=== PATIENT | male | born 1955 | race Caucasian/White ===

== ENCOUNTER 2021-07-21 17:14 | Inpatient (IN) | payer OTHER ==
[~2021-07-21] VITALS: Ht 188 cm; Wt 93.0 kg
--- NOTE | 2021-07-21 17:25 | NUR ---
BIBRA86 FOR SOB O2 SAT 60% RA GIVEN 15L O2, O2 SAT 90% PER EMS. THE PATIENT HAS TACHYPNEA. ATTACHED TO THE MONITOR. RT AT THE BEDSIDE. DR JENSEN AT THE BEDSIDE. WILL CONTINUE TO MONITOR THE PATIENT
[2021-07-21] MEDS ORDERED: IV NS 0.9% 1,000 ML BAG IV ONE (17:30)
--- NOTE | 2021-07-21 17:50 | NUR ---
[place] SEED CUTTER AT THE BEDSIDE
[2021-07-21 17:55] LABS: ABG BASE EXCESS -5.1 mmol/L; ABG OXYGEN SATURATION 93.9 % (92.0-98.5); ABG PCO2 29.1 mmHg (35.0-45.0); ABG PH 7.405 (7.350-7.450); AaDO2 204.6 mmHg; COHb 0.2 % (0.5-1.5); MetHb 0.3 % (0.0-1.5); O2Hb 93.4 % (94.0-97.0); SITE, ABG Right Radial; VENT MODE, BG 6L NC
--- NOTE | 2021-07-21 17:59 | NUR ---
PHLEBATOMIST AT THE BEDSIDE
[2021-07-21] MEDS ORDERED: NA P133E RC (18:07)
[2021-07-21] MEDS ORDERED: ACET325C7 PO (18:07)
[2021-07-21] MEDS ORDERED: ACET325T53 PO (18:07)
[2021-07-21] MEDS ORDERED: QUET25TA PO (18:07)
[2021-07-21] MEDS ORDERED: MULT-447 PO (18:07)
[2021-07-21] MEDS ORDERED: CRAN425C6 PO (18:07)
[2021-07-21] MEDS ORDERED: ASCO500C17 PO (18:07)
[2021-07-21] MEDS ORDERED: ZINC220C6 PO (18:07)
[2021-07-21] MEDS ORDERED: AMIN887L7 PO (18:07)
[2021-07-21] MEDS ORDERED: DOCU-141 PO (18:07)
--- NOTE | 2021-07-21 18:18 | NUR ---
CALLED NURSING SUP FOR [place] BED
--- NOTE | 2021-07-21 18:22 | NUR ---
HOLDING ORDERED NS AT THIS TIME PER DR JENSEN.
--- NOTE | 2021-07-21 18:32 | NUR ---
COVID SWAB DONE AND SENT TO THE LAB
[2021-07-21 18:38] LABS: CALCIUM, SERUM 9.7 mg/dL (8.5-10.1); CARBON DIOXIDE 24 mmol/L (21-32); CHLORIDE 121 mmol/L (98-107); CREATININE 2.9 mg/dL (0.6-1.3); GLUCOSE 219 mg/dL (74-106); POTASSIUM 4.2 mmol/L (3.5-5.1); UREA NITROGEN, BLOOD 75 mg/dL (7-18)
--- NOTE | 2021-07-21 18:38 | NUR ---
PER DR JENSEN OK TO GIVEN ORDERED NORMAL SALINE. AWARE OF BP 88/60 AND PULSE 124.
[2021-07-21 18:41] LABS: SODIUM SERUM 161 mmol/L (136-145)
--- NOTE | 2021-07-21 18:48 | NUR ---
FOLLOW UP CALL IS MADE TO PHARM TO DELIVER ZOSYN
[2021-07-21 18:50] LABS: ALANINE AMINOTRANSFERASE 66 U/L (12-78); ALBUMIN 2.9 g/dL (3.4-5.0); ALKALINE PHOSPHATASE 86 U/L (46-116); ASPARTATE AMINOTRANSFERASE 51 U/L (15-37); BILIRUBIN,TOTAL 4.3 mg/dL (0.2-1.0); TOTAL PROTEIN, SERUM 7.6 g/dL (6.4-8.2)
[2021-07-21] MEDS ORDERED: PIPERACILLIN /TAZOBACTAM 3.375 G in IV D5W 50 ML IV ONE (19:00)
[2021-07-21] MEDS ORDERED: VANCOMYCIN 1 GM in IV D5W 250 ML IV ONE (19:00)
--- NOTE | 2021-07-21 19:18 | NUR ---
CALLED [facility], PAGED SILVER MARTINES NP
--- NOTE | 2021-07-21 19:26 | NUR ---
C/O FEVER CHILLS & SORETHROAT, PT HAD COLONOSCOPY THIS AM
--- NOTE | 2021-07-21 19:38 | NUR ---
PATIENT OUT TO CT.
[2021-07-21] MEDS ORDERED: NOREPINEPHRINE 8 MG in IV NS 0.9% 250 ML IV ONE (20:00)
--- NOTE | 2021-07-21 20:13 | NUR ---
PICC LINE NURSE AT BEDSIDE
[2021-07-21 20:19] LABS: BASOPHILS % (AUTO) 0.2 % (0.0-2.0); HEMATOCRIT 50 % (39-51); HEMOGLOBIN 16.3 g/dL (13.5-17.5); LYMPHOCYTES % (AUTO) 13.3 % (20.0-44.0); MEAN CORPUSCULAR HGB CONC 33 g/dl (31.0-36.0); MEAN CORPUSCULAR VOLUME 92 fL (80-96); MONOCYTES # (AUTO) 0.9 K/uL (0.1-1.30); MONOCYTES % (AUTO) 5.7 % (2.0-12.0); NEUTROPHILS # (AUTO) 12.3 K/uL (1.8-8.9); NEUTROPHILS % (AUTO) 80.8 % (43.0-81.0); PLATELET COUNT (AUTO) 337 K/uL (150-450); RED BLOOD CELL COUNT(AUTO) 5.41 MIL/uL (4.5-6.0); WHITE BLOOD COUNT (AUTO) 15.3 K/uL (4.3-11.0)
--- NOTE | 2021-07-21 21:01 | NUR ---
covid antigen swab sent.
[2021-07-21 21:09] LABS: BILIRUBIN,URINE MODERATE (NEGATIVE); COLOR,URINE AMBER (YELLOW); LEUKOCYTE ESTERASE ,URINE NEGATIVE (NEGATIVE); NITRITE, URINE POSITIVE (NEGATIVE); PROTEIN,URINE NEGATIVE (NEGATIVE); UGLUCOSE NEGATIVE (NEGATIVE)
--- NOTE | 2021-07-21 21:19 | NUR ---
ROOM 260
[2021-07-21 21:25] LABS: BAND % (MANUAL) 18 % (0.0-5.0); LYMPHOCYTES % (MANUAL) 14 % (16-48); MONOCYTES % (MANUAL) 10 % (0-11.0); NEUTROPHILS % (MANUAL) 58 (42-76)
[2021-07-21] MEDS ORDERED: ACETAMINOPHEN 325 MG TABLET PO PRN (21:30)
[2021-07-21] MEDS ORDERED: ONDANSETRON HCL/PF 4 MG/2 ML VIAL IVP PRN (21:30)
[2021-07-21] MEDS ORDERED: IV 1/2NS 1000 ML 1,000 ML IV PRN (21:30)
[2021-07-21 21:31] LABS: BACTERIA,URINE Few /HPF (None Seen); RBC,URINE 0-2 /HPF (0-2); WBC,URINE 0-2 /HPF (0-3)
[2021-07-21 21:32] LABS: SQUAMOUS EPITHELIAL CELL,UR Moderate /HPF (None Seen)
--- NOTE | 2021-07-21 21:34 | NUR ---
CALLED CHRISTINE SHEPPARD NP
--- NOTE | 2021-07-21 22:01 | NUR ---
REPORT GIVEN TO ED AIRPLANE REFUELER
[2021-07-21] MEDS ORDERED: POTASSIUM CHLORIDE 10 MEQ TABLET.SA ONE (22:11)
[2021-07-21] MEDS ORDERED: POTASSIUM CHLORIDE 20 MEQ TAB.PRT.SR PO ONE (22:11)
--- NOTE | 2021-07-21 22:27 | NUR ---
REPORT GIVEN TO ED MACHINE FIXER. PT TRANSFERRED PER ACLS PROTOCOL
[2021-07-21] MEDS: ENOXAPARIN SODIUM 30 MG/0.3 ML DISP.SYRIN SQ SCH (22:54)
[2021-07-21 23:00] VITALS: BP 91/60
[2021-07-21] MEDS: NOREPINEPHRINE 8 MG in IV NS 0.9% 250 ML IV PRN (23:00)
[2021-07-21 23:30] VITALS: BP 94/59
[2021-07-22] VITALS (56 sets, daily range): BP systolic 42–153; BP diastolic 22–90
[2021-07-22] MEDS ORDERED: PIPERACILLIN /TAZOBACTAM 3.375 G VIAL IV ONE (01:20)
[2021-07-22] MEDS: PIPERACILLIN /TAZOBACTAM 3.375 G in IV D5W 50 ML IV SCH ×4 (01:27→20:02)
--- NOTE | 2021-07-22 03:20 | NUR ---
CLIP ON SUNGLASSES INSPECTOR PT WAS ADMITTED FROM ER WITH DIAGNOSIS BILATERAL PNA, SEPTIC SHOCK. PT IS MOSTLY LETHARGIC, RESPONSE TO PAINFUL STIMULI. DOES NOT OPEN EYES, NO SPEECH, MOVES ARMS, NO LEGS. BILATERAL RHONCHI. NO COUGH OR SPUTUM PRODUCTION. PT WAS HYPOTENSIVE, SO STARTED LEVOPHED DRIP, TITRATED TO KEEP SBP>90. MAIN IV 1/2 NS @ 100 ML/HR. PT HAS RIGHT UPPER ARM THREE PORTS PICC LINE. SCOPE-ST WITH PVC'S. AFEBRILE. F/C DRAINS YOLANDA URINE. NO BM. SOFT WRIST RESTRAINTS ON.
[2021-07-22 05:17] LABS: BASOPHILS % (AUTO) 0.3 % (0.0-2.0); EOSINOPHILS % (AUTO) 0.2 % (0.0-6.0); HEMATOCRIT 45 % (39-51); HEMOGLOBIN 14.7 g/dL (13.5-17.5); LYMPHOCYTES # (AUTO) 1.6 K/uL (0.8-4.8); LYMPHOCYTES % (AUTO) 11.5 % (20.0-44.0); MEAN CORPUSCULAR HGB CONC 33 g/dl (31.0-36.0); MEAN CORPUSCULAR VOLUME 92 fL (80-96); MONOCYTES # (AUTO) 0.6 K/uL (0.1-1.30); MONOCYTES % (AUTO) 4.3 % (2.0-12.0); NEUTROPHILS # (AUTO) 11.9 K/uL (1.8-8.9); NEUTROPHILS % (AUTO) 83.7 % (43.0-81.0); PLATELET COUNT (AUTO) 244 K/uL (150-450); RED BLOOD CELL COUNT(AUTO) 4.85 MIL/uL (4.5-6.0); WHITE BLOOD COUNT (AUTO) 14.3 K/uL (4.3-11.0)
[2021-07-22] MEDS ORDERED: NOREPINEPHRINE 8MG/250ML RTU 250 ML IV ONE (05:20)
[2021-07-22] MEDS: NOREPINEPHRINE 8 MG in IV NS 0.9% 250 ML IV PRN ×2 (05:23→14:14)
[2021-07-22 05:43] LABS: ALBUMIN 2.5 g/dL (3.4-5.0); BILIRUBIN,TOTAL 3.8 mg/dL (0.2-1.0); CALCIUM, SERUM 8.7 mg/dL (8.5-10.1); CREATININE 3.8 mg/dL (0.6-1.3); MAGNESIUM 2.7 mg/dL (1.8-2.4); PHOSPHORUS 4.1 mg/dL (2.5-4.9); POTASSIUM 4.1 mmol/L (3.5-5.1); TOTAL PROTEIN, SERUM 6.9 g/dL (6.4-8.2)
[2021-07-22] MEDS ORDERED: PIPERACILLIN /TAZOBACTAM 3.375 G in IV D5W 50 ML IV SCH (08:00)
--- NOTE | 2021-07-22 08:00 | NUR ---
RN NOTES RECEIVED PATIENT IN THE BED ON NON- REBREATHER MASK 15L, NPO, PATIENT CONFUSED, DURING ASSESSMENT RUBBING CHEST PATIENT MAKING NOISES BUT NO VERBAL RESPONDING. PATIENT TOTAL CARE, BILATERAL SOFT RESTRAIN ON CHECKED FOR CIRCULATION Q2 HR. PATIENT NEGATIVE FOR RAPID COVID, AND PENDING PCR. JAVAN PICC LINE INTACT, RUNNING NS @100 ML/HR , AND LEVOPHED 0.2 MCG/KG/HR INTACT. PATIENT HAS MULTIPLE SCABS, AND LEFT LOWER LEG ABRASION. MERCHANT DRAINING VIA GRAVITY, DARK COLOR OUTPUT. PATENT AM MEDICATION HELD.
[2021-07-22] MEDS ORDERED: ACETAMINOPHEN 325 MG TABLET PO SCH (09:00)
[2021-07-22] MEDS ORDERED: Medication Not On Formulary EA (Cranberry Extract (Cranberry) 850 MG) PO SCH (09:00)
[2021-07-22] MEDS: PROSOURCE / PROSTAT (PYXIS) 30 ML UDC PO SCH (09:00)
[2021-07-22] MEDS: ASCORBIC ACID 500 MG TABLET PO SCH (09:00)
[2021-07-22] MEDS: MULTIVIT W/MINERALS 1 TAB TABLET PO SCH ×2 (09:00→09:14)
[2021-07-22] MEDS: DOCUSATE SODIUM 100 MG CAPSULE PO SCH (09:00)
[2021-07-22] MEDS: IV D5/0.45 NACL 1,000 ML IV PRN ×2 (09:17→20:03)
--- NOTE | 2021-07-22 09:34 | NUR ---
rn notes CALLED [facility] , AND PER RN NYLA PATIENT HAS NO COVED VACCINATION, REFUSED VACCINATION, AND NO FAMILY.
[2021-07-22 09:49] LABS: ABG BASE EXCESS -4.5 mmol/L; ABG OXYGEN SATURATION 99.5 % (92.0-98.5); ABG PCO2 31.9 mmHg (35.0-45.0); ABG PH 7.396 (7.350-7.450); ABG PO2 247.6 mmHg (75.0-100.0); AaDO2 433.5 mmHg; MetHb 0.5 % (0.0-1.5); SITE, ABG Right Radial; VENT MODE, BG nrb
--- NOTE | 2021-07-22 09:51 | NUR ---
RN NOTES GET BLOOD GAS AT THIS TIME, AND ACCORDING ABG RESULT PATIENT ON NC 6L PER DR CASSIDY ORDER. WILL FOLLOW UP.
[2021-07-22] MEDS ORDERED: PIPERACILLIN /TAZOBACTAM 2.25 G in IV D5W 50 ML IV SCH (10:00)
[2021-07-22 10:44] LABS: THYROID STIMULATING HORMONE 2.533 uIU/mL (0.358-3.74)
[2021-07-22] MEDS: HYDROCORTISONE SOD SUCCINATE 100 MG/2 ML VIAL IV SCH ×3 (11:44→20:03)
--- NOTE | 2021-07-22 14:33 | NUR ---
rn notes patient still confused, no acute respiratory distress, HR-112 , assist turn and reposition q 2 hr, due medication administered, will follow up.
--- NOTE | 2021-07-22 18:44 | NUR ---
rn notes patient Pm care done, suction, infusing d51/2 ns at 100ml/hr,and Levophed 0.1 mcg/kg/hr right UA PICC line intact. patient on NC @6l , confused, no acute respiratory distress. urine output was 325 ml entire shift. assist turn and reposition q 2hr. rechecked soft restrain bilateral for circulation q 2 hr. endorsed oncoming nurse follow plan of care.
--- NOTE | 2021-07-22 19:05 | NUR ---
RECEIVED PT ON BED LETHARGIC, OPEN EYES TO PAIN NON VERVBAL ,ON O2 6L VIA NC SPO2 100% NO SIGN OF RESPIRATORY DISTRESS, BEDSIDE MONITOR READS SINUS TACHY 100'S, HAVE JAVAN PICC LINE WITH ONGOIGN LEVOPHED @ 0.1 MCG/KG/MIN AND D5 1/2 NS @ 100 ML/HR INFUSING WELL, HAVE RAC # 18 IV PATENT AND FLUSHED, MERCHANT CATHETER DRAINING YOLANDA YELLOW URINE VIA GRAVITY, HAVE BILATERAL WRIST RESTRAINTS TO PREVENT PULLING OF LINES, CIRCULATION WILL BE CHECKED REGULARLY, ON DROPLET ISOLATION FOR R/O COVID, BED ON LOWEST POSITION AND LOCKED SIDE RAILS UP X2 WILL CONT TO MONITOR
[2021-07-22] MEDS: MUPIROCIN OINT 2% 22 GM TUBE NS SCH (20:03)
[2021-07-22] MEDS: ENOXAPARIN SODIUM 30 MG/0.3 ML DISP.SYRIN SQ SCH (20:04)
[2021-07-23] VITALS (66 sets, daily range): BP systolic 83–150; BP diastolic 28–89
--- NOTE | 2021-07-23 01:15 | NUR ---
PT ON BED STILL VERY LETHARGIC OPEN EYES TO STIMULI ON O2 3L VIA NC SPO2 100% NO SIGN OR RESPIRATORY DISTRESS, NO PAIN NOTED WILL CONT TO MONITOR
[2021-07-23] MEDS: PIPERACILLIN /TAZOBACTAM 3.375 G in IV D5W 50 ML IV SCH ×4 (01:48→19:59)
[2021-07-23] MEDS: HYDROCORTISONE SOD SUCCINATE 100 MG/2 ML VIAL IV SCH ×3 (04:31→17:36)
[2021-07-23] MEDS: IV D5/0.45 NACL 1,000 ML IV PRN (06:02)
[2021-07-23] MEDS: VANCOMYCIN 1 GM in IV D5W 250ml IV SCH (06:03)
[2021-07-23 06:10] LABS: BASOPHILS % (AUTO) 0.2 % (0.0-2.0); HEMATOCRIT 40 % (39-51); LYMPHOCYTES # (AUTO) 1.3 K/uL (0.8-4.8); LYMPHOCYTES % (AUTO) 9.7 % (20.0-44.0); MEAN CORPUSCULAR HGB CONC 33 g/dl (31.0-36.0); MEAN CORPUSCULAR VOLUME 92 fL (80-96); MONOCYTES # (AUTO) 0.4 K/uL (0.1-1.30); MONOCYTES % (AUTO) 2.8 % (2.0-12.0); NEUTROPHILS % (AUTO) 87.3 % (43.0-81.0); PLATELET COUNT (AUTO) 186 K/uL (150-450); RED BLOOD CELL COUNT(AUTO) 4.32 MIL/uL (4.5-6.0); WHITE BLOOD COUNT (AUTO) 13.8 K/uL (4.3-11.0)
--- NOTE | 2021-07-23 06:43 | NUR ---
PT ON BED STILL VERY LETHARGIC, NO SIGN OF RESPIRATORY DISTRESS, BEDSIDE MONITOR READS SINUS RHTHM 90'S NO PAIN NOTED, STILL ON D5 1/2 NS @ 100ML/HR INFUSING WELL VIA JAVAN PICC, BILATEARL WRIST RESTRAINTS STILL ON CIRCULATION WAS CHECKED REGULARLY, BED ON LOWEST POSITION AND LOCKED SIDE RAILS UP X2 CWILL CONT TO MONITOR
[2021-07-23 07:36] LABS: CALCIUM, SERUM 8.6 mg/dL (8.5-10.1); CREATININE 3.8 mg/dL (0.6-1.3); POTASSIUM 3.7 mmol/L (3.5-5.1)
--- NOTE | 2021-07-23 08:00 | NUR ---
RN NOTES RECEIVED PATIENT LETHARGIC, NO ACUTE RESPIRATORY DISTRESS, ON [id number]%. PATIENT UNABLE TO VERBALIZE SELF BUT REACTING WHEN TOUCHING. INFUSING D51/2 NS @100 ML.HR, ON RIGHT PICC LINE ON RIGHT UPPER ARM, INTACT. PATIENT NPO ,HELD PO MEDICATIONS. VSS. RECHECKED SOFT BILATERAL SOFT RESTRAINS FOR CIRCULATION, MERCHANT DRAINING VIA GRAVITY DARK TEA COLOR OUTPUT. GET CALL FROM LAB PATIENT [phone]. HOSPITALIST NOTIFIED. CALL LIGHT WITHIN TO REACH. ASSIST TURN AND REPOSTION Q 2 HR. WILL FOLLOW UP.
[2021-07-23 08:54] LABS: ABG BASE EXCESS -1.2 mmol/L; ABG OXYGEN SATURATION 97.9 % (92.0-98.5); ABG PCO2 32.7 mmHg (35.0-45.0); ABG PH 7.447 (7.350-7.450); ABG PO2 107.6 mmHg (75.0-100.0); AaDO2 67.9 mmHg; COHb 0.3 % (0.5-1.5); MetHb 0.2 % (0.0-1.5); O2Hb 97.4 % (94.0-97.0); SITE, ABG Right Radial; VENT MODE, BG 3L NC
[2021-07-23] MEDS: PROSOURCE / PROSTAT (PYXIS) 30 ML UDC PO SCH (09:00)
[2021-07-23] MEDS: ASCORBIC ACID 500 MG TABLET PO SCH (09:00)
[2021-07-23] MEDS: MULTIVIT W/MINERALS 1 TAB TABLET PO SCH (09:00)
[2021-07-23] MEDS: DOCUSATE SODIUM 100 MG CAPSULE PO SCH (09:00)
[2021-07-23] MEDS: MUPIROCIN OINT 2% 22 GM TUBE NS SCH ×2 (09:01→20:09)
[2021-07-23] MEDS: IV D5W 1,000 ML IV PRN ×2 (10:49→21:01)
--- NOTE | 2021-07-23 11:00 | NUR ---
RN NOTES GET RESPOND FROM HOSPITALIST TO FOLLOW PAINT SPRAYER SANDBLASTER, GET NEW ORDER D5W @100 ML/HR. WILL FOLLOW UP.
--- NOTE | 2021-07-23 13:15 | NUR ---
RN NOTES PATIENT GET EVALUATED VIA SPEACH THERAPIST NAME ASHLEY BUT UNABLE, DUE TO PATIENT CONDITION PATIENT CONFUSED, UNABLE TO FOLLOW COMMAND.
--- NOTE | 2021-07-23 18:30 | NUR ---
RN NOTES PM CARE DONE, PATIENT STILL NPO. ON O22LNC, INFUSING D5W@100 ML/HR ON RIGHT PICC LINE INTACT. RECHECKED RESTRAIN BILATERAL INTACT, GOOD CIRCULATION. MERCHANT OUTPUT WAS 680 ML ENTIRE SHIFT. PATIENT NEED UA SPECIMEN TO BE COLLECTED, CLAMPED MERCHANT, ENDORSED ONCOMING NURSE FOLLOW PLAN OF CARE.
--- NOTE | 2021-07-23 19:15 | NUR ---
RECEIVED PT ON BED LETHARGIC, OPEN EYES TO PAIN NON VERVBAL ,ON O2 3L VIA NC SPO2 100% NO SIGN OF RESPIRATORY DISTRESS, BEDSIDE MONITOR READS SINUS RHYTHM 80'S HAVE JAVAN PICC LINE WITH ONGOIGN D5 1/2 NS @ 100 ML/HR INFUSING WELL, HAVE RAC # 18 IV PATENT AND FLUSHED, MERCHANT CATHETER DRAINING YOLANDA YELLOW URINE VIA GRAVITY, HAVE BILATERAL WRIST RESTRAINTS TO PREVENT PULLING OF LINES, CIRCULATION WILL BE CHECKED REGULARLY, ON DROPLET ISOLATION FOR R/O COVID, BED ON LOWEST POSITION AND LOCKED SIDE RAILS UP X2 WILL CONT TO MONITOR
[2021-07-23] MEDS: ENOXAPARIN SODIUM 30 MG/0.3 ML DISP.SYRIN SQ SCH (20:09)
[2021-07-23 21:12] LABS: BILIRUBIN,URINE NEGATIVE (NEGATIVE); COLOR,URINE YELLOW (YELLOW); LEUKOCYTE ESTERASE ,URINE NEGATIVE (NEGATIVE); NITRITE, URINE NEGATIVE (NEGATIVE); PROTEIN,URINE 30 mg/dl (NEGATIVE); UGLUCOSE 250 MG/DL mg/dL (NEGATIVE)
[2021-07-23 21:22] LABS: BACTERIA,URINE 1+ /HPF (None Seen); RBC,URINE 81-100 /HPF (0-2); SQUAMOUS EPITHELIAL CELL,UR 0-2 /HPF (None Seen); URINE AMORPHOUS URATE Moderate /HPF (None Seen); WBC,URINE 0-2 /HPF (0-3)
[2021-07-23 21:23] LABS: URIC ACID CRYSTALS,URINE Many /HPF (None Seen)
[2021-07-23 21:24] LABS: CREATININE, URINE 74.8 MG/DL (30.0-125.0); URINE TOTAL PROTEIN 117.1 mg/dL (0-11.9)
[2021-07-23 21:29] LABS: EOSINOPHIL,URINE None Seen
[2021-07-24] VITALS (37 sets, daily range): BP systolic 92–137; BP diastolic 37–92
--- NOTE | 2021-07-24 00:30 | NUR ---
PT RHYTHM CHNAGE FROM SINUS RHYTHM TO AFIB, INFORMED INGE MARTINES PROGRAM ADVOCATE STAT EKG ORDER WILL CONT TO MONITOR
--- NOTE | 2021-07-24 00:55 | NUR ---
EKG RESULTS RELAYED TO INGE MARTINES PRODUCT EXPERT WITH ORDER METOPROLOL 5MG IV X1 NOW NOTED AND CARRIED OUT WILL CONT TO MONITOR
[2021-07-24] MEDS: PIPERACILLIN /TAZOBACTAM 3.375 G in IV D5W 50 ML IV SCH ×4 (01:07→20:43)
[2021-07-24] MEDS ORDERED: METOPROLOL TARTRATE INJ 5 MG/5 ML AMPUL IV ONE (01:30)
[2021-07-24 04:40] LABS: BASOPHILS % (AUTO) 0.1 % (0.0-2.0); HEMATOCRIT 39 % (39-51); LYMPHOCYTES # (AUTO) 1.2 K/uL (0.8-4.8); LYMPHOCYTES % (AUTO) 8.8 % (20.0-44.0); MEAN CORPUSCULAR HGB CONC 33 g/dl (31.0-36.0); MEAN CORPUSCULAR VOLUME 92 fL (80-96); MONOCYTES # (AUTO) 0.4 K/uL (0.1-1.30); MONOCYTES % (AUTO) 2.8 % (2.0-12.0); NEUTROPHILS % (AUTO) 88.3 % (43.0-81.0); PLATELET COUNT (AUTO) 169 K/uL (150-450); WHITE BLOOD COUNT (AUTO) 13.5 K/uL (4.3-11.0)
[2021-07-24 05:09] LABS: MAGNESIUM 2.5 mg/dL (1.8-2.4); PHOSPHORUS 2.8 mg/dL (2.5-4.9)
--- NOTE | 2021-07-24 06:45 | NUR ---
REPORTED TO PRODUCTION ZONE LEADER SILVER MARTINES ABOUT THE Na-160 BUN 90 CREA 3.8 WITH NO NEW ORDER
[2021-07-24] MEDS: IV D5W 1,000 ML IV PRN ×3 (06:58→18:17)
--- NOTE | 2021-07-24 07:00 | NUR ---
RN NOTES RECEIVED PT ON BED, LETHARGIC ,DOES NOT FOLLOW COMMAND, RESTLESS, ON 2 L O2 N/C , NO RESPIRATORY DISTRESS NOTED, ON TELE A.FIB HR IN 90'S , PT KEPT NPO AT THIS TIME, D5W AT 100CC/HR RUNNING , IV SITES CLEAN, DRY AND INTACT, SR UP x3, CALL LIGHT WITHIN EASY REACH, BED LOCKED AND IN LOWEST POSITION, CONTINUE TO MONITOR .
--- NOTE | 2021-07-24 08:07 | NUR ---
WOUND CARE CONSULT: REVIEWED CHART, NURSING DOCUMENTATION AND PHOTOS WHICH INDICATE SACRAL/BUTTOCK REDNESS AND LEFT LOWER EXTREMITY WOUNDS, PRESENT ON ADMISSION. DR TY NOTIFIED OF DPM CONSULT. RECOMMENDATIONS MADE FOR SKIN PROTECTION. DISCUSSED WITH NURSING STAFF. MD IN AGREEMENT WITH PLAN OF CARE.
[2021-07-24] MEDS: HYDROCORTISONE SOD SUCCINATE 100 MG/2 ML VIAL IV SCH ×2 (08:19→09:30)
[2021-07-24] MEDS: MUPIROCIN OINT 2% 22 GM TUBE NS SCH ×2 (08:21→21:17)
[2021-07-24] MEDS: DOCUSATE SODIUM 100 MG CAPSULE PO SCH (08:21)
[2021-07-24] MEDS: ASCORBIC ACID 500 MG TABLET PO SCH (08:22)
[2021-07-24] MEDS: MULTIVIT W/MINERALS 1 TAB TABLET PO SCH (08:22)
[2021-07-24] MEDS: PROSOURCE / PROSTAT (PYXIS) 30 ML UDC PO SCH (08:22)
[2021-07-24] MEDS: Z GUARD REMEDY 2 OZ OINT TP SCH (08:23)
--- NOTE | 2021-07-24 10:00 | NUR ---
RN NOTES NGT INSERTED , 500 CC GREENISH GASTRIC FLUID DRAINED TO THE CANISTER , DR ESPINAL NOTIFIED, NGT REMAINS CONNECTED TO LIS SUCTIONING PER MD ORDER , CONTINUE TO MONITOR THE DRAINAGE .
--- NOTE | 2021-07-24 14:00 | NUR ---
RN NOTES NGT TO LIS , CONTINUE TO MONITOR .
[2021-07-24] MEDS: GLUCERNA 1.2 1,000 ML BOTTLE NG PRN (18:34)
[2021-07-24] MEDS: VANCOMYCIN 1 GM in IV D5W 250ml IV SCH ×2 (18:34→22:30)
--- NOTE | 2021-07-24 18:45 | NUR ---
RN NOTES NO FURTHER GASTRIC DRAINAGE NOTED ,TF STARTED AT 20CC /HR. WILL ENDORSE TO LIBRARY PARAPROFESSIONAL NURSE FOR CONTINUITY OF CARE.
--- NOTE | 2021-07-24 19:45 | NUR ---
ICU/RESOURCE TEACHER RECIEVED REPORT FROM DAY SHIFT NURSE. SEE FLOWSHEET FOR ASSESSMENT, THERE ARE SKIN ISSUES THAT ARE ADDRESSED ON THE FLOWSHEET, ALONG WITH INTERVENTIONS TO EACH. THE IV'S ARE ADDRESSED ON THE IV SPREAD SHEET. PT WAS TURNED AND REPOSITIONED FOR COMFORT AND CARE. NO ACUTE DISTRESS SEEN AND WILL CONTINUE TO MONITOR THIS PT.
--- NOTE | 2021-07-24 20:40 | NUR ---
ICU/PHOTOGRAMMETRIC SURVEYOR CALLED THE LAB ABOUT A VANCO TROUGH, THEY SAID THE CLS IS BACKED UP AT THIS TIME AND HOPEFULLY WITHIN THE NEXT 30 MINUTES IT WILL BE RESULTED.
[2021-07-24] MEDS: ENOXAPARIN SODIUM 30 MG/0.3 ML DISP.SYRIN SQ SCH (21:17)
--- NOTE | 2021-07-24 22:38 | NUR ---
ICU/GRAPHIC PRODUCTION ARTIST THE VANCO LEVEL WAS RESULTED OF 30 MINUTES AGO. THE LEVEL IS 26. THIS WAS HELD DUE TO PARAMETERS.
--- NOTE | 2021-07-24 23:30 | NUR ---
ICU/RN MANAGER PT WAS GIVEN ORAL CARE ALONG AT THIS TIME. PT TOLERATED THIS WELL, REMAINS ON 2 LITERS N/C WITH SATURATION AT 97-99%. AT THIS TIME PM CARE WAS PROVIDE, WHICH WAS TOLERATED WELL. PT WAS THEN TURNED AND REPOSITIONED FOR COMFORT AND CARE, WILL CONTINUE TO MONITOR THIS PT. NO ACUTE DISTRESS WAS SEEN AT THIS TIME.
[2021-07-25] VITALS (20 sets, daily range): BP systolic 92–126; BP diastolic 25–77
--- NOTE | 2021-07-25 01:30 | NUR ---
ICU/GARBAGE DEPOT WORKER PT WAS TURNED AND REPOSITIONED FOR COMFORT AND CARE. NO ACUTE DISTRESS SEEN AT THIS TIME. WILL CONTINUE TO MONITOR THIS PT.
[2021-07-25] MEDS: PIPERACILLIN /TAZOBACTAM 3.375 G in IV D5W 50 ML IV SCH ×4 (02:30→20:09)
--- NOTE | 2021-07-25 05:00 | NUR ---
ICU/SPECIAL EFFECTS MAKEUP ARTIST PT WAS PROVIDED ORAL CARE ALONG AT THIS TIME. PT TOLERATED THIS WELL, REMAINS ON 2 LITERS N/C WITH SATURATION AT 97-99%. AT THIS TIME AM CARE WAS PROVIDE, WHICH WAS TOLERATED WELL. PT WAS THEN TURNED AND REPOSITIONED FOR COMFORT AND CARE, WILL CONTINUE TO MONITOR THIS PT. NO ACUTE DISTRESS WAS SEEN AT THIS TIME.
[2021-07-25] MEDS: IV D5W 1,000 ML IV PRN ×2 (05:34→15:16)
--- NOTE | 2021-07-25 08:00 | NUR ---
RN NOTES RECEIVED PATIENT ON O22L, NO ACUTE RESPIRATORY DISTRESS, PATIENT AWAKE, AND CONFUSED SAME TIME ABLE TO OPEN EYES,BUT UNABLE TO RESPOND CONVERSATION. INFUSING D5W @75 ML/HRINTACT ON RIGHT UA PICC LINE INTACT. RUNNING GLUCERNA @20CC, NO RESIDUAL, MERCHANT DRAINING TEA COLOR OUTPUT WITH SEDIMENTS. KEEP HOB ELEVATED FOR ASPIRATION PRECAUTION. ASSIST TURN AND REPOSTION Q 2 HR. WILL FOLLOW UP.
[2021-07-25] MEDS: HYDROCORTISONE SOD SUCCINATE 100 MG/2 ML VIAL IV SCH (08:11)
[2021-07-25] MEDS: DOCUSATE SODIUM 100 MG CAPSULE PO SCH (08:11)
[2021-07-25] MEDS: ASCORBIC ACID 500 MG TABLET PO SCH (08:11)
[2021-07-25] MEDS: MULTIVIT W/MINERALS 1 TAB TABLET PO SCH (08:11)
[2021-07-25] MEDS: MUPIROCIN OINT 2% 22 GM TUBE NS SCH ×2 (08:12→20:03)
[2021-07-25] MEDS: Z GUARD REMEDY 2 OZ OINT TP SCH (08:12)
[2021-07-25] MEDS: PROSOURCE / PROSTAT (PYXIS) 30 ML UDC PO SCH (08:13)
--- NOTE | 2021-07-25 09:00 | NUR ---
RN NOTES SEEM PATIENT WOUND NURSE, AND PODIATRICS Dr ROWE GET NEW ORDER FOR NAILS TRAM.
[2021-07-25 09:08] LABS: BASOPHILS % (AUTO) 0.1 % (0.0-2.0); EOSINOPHILS % (AUTO) 0.7 % (0.0-6.0); HEMATOCRIT 42 % (39-51); HEMOGLOBIN 13.8 g/dL (13.5-17.5); LYMPHOCYTES # (AUTO) 1.5 K/uL (0.8-4.8); LYMPHOCYTES % (AUTO) 13.1 % (20.0-44.0); MEAN CORPUSCULAR HGB CONC 33 g/dl (31.0-36.0); MEAN CORPUSCULAR VOLUME 91 fL (80-96); MONOCYTES # (AUTO) 0.6 K/uL (0.1-1.30); MONOCYTES % (AUTO) 5.6 % (2.0-12.0); NEUTROPHILS # (AUTO) 9.1 K/uL (1.8-8.9); NEUTROPHILS % (AUTO) 80.5 % (43.0-81.0); PLATELET COUNT (AUTO) 145 K/uL (150-450); RED BLOOD CELL COUNT(AUTO) 4.61 MIL/uL (4.5-6.0); WHITE BLOOD COUNT (AUTO) 11.4 K/uL (4.3-11.0)
[2021-07-25 09:21] LABS: CALCIUM, SERUM 8.3 mg/dL (8.5-10.1); CREATININE 1.7 mg/dL (0.6-1.3); MAGNESIUM 2.5 mg/dL (1.8-2.4); PHOSPHORUS 2.4 mg/dL (2.5-4.9)
--- NOTE | 2021-07-25 09:30 | NUR ---
RN NOTES GET NEW ORDER TRANSFER PATIENT TO [place]/TELE. WILL FOLLOW UP. DUE MEDICATION ADMINISTERED VIA NGR, SEEN HOSPITALIST dR ESPINAL, AND TANDEM MILL ROLLER Dr GARDNER FOR CONTINUATION OF PLAN OF CARE.
[2021-07-25 09:55] LABS: POTASSIUM 2.7 mmol/L (3.5-5.1)
[2021-07-25] MEDS: POTASSIUM CHLORIDE 20 MEQ TAB.PRT.SR PO SCH ×5 (11:23→14:42)
--- NOTE | 2021-07-25 13:21 | NUR ---
RN NOTES TRANSFERRED PATIENT STABLE CONDITION [place] TELE ROOM 118 BED 1, VSS, ON O22LNC, NO ACUTE RESPIRATORY DISTRESS. BEDSIDE REPORT GIVEN RN FOLLOW PLAN OF CARE.
[2021-07-25] MEDS ORDERED: NEUTRA PHOS 1 POWD.PACKET PO ONE (15:30)
--- NOTE | 2021-07-25 18:37 | NUR ---
RN CLOSING NOTES; PT CAME IN FROM ICU FOR SEPTIC SHOCK AND DEHYDRATION. PT ON NC 2L AT AT 96-98%. PT IS LETHARGIC, CONFUSED, BUT OPENS EYES. R NARE NG TUBE RUNNING GLUCERNA @20ML HOUR. GOAL AT 50ML/HR. PT HAS JAVAN PICC, RA #18 AND RH #20. FLUSHED AND PATENT. NO SIGNIFICANT CHANGE IN PT CONDITION. PT KEPT CLEAN, DRY, AND COMFORTABLE. SAFETY MEASURES RENDERED, BED IN LOWEST POS. LOCKED WITH CALL LIGHT WITHIN REACH. ENDORSED TO BUSINESS AGENT RN IN STABLE CONDITION.
[2021-07-25] MEDS: Potassium Chloride 20 MEQ in IV D5W 1,000 ML IV PRN (19:03)
--- NOTE | 2021-07-25 19:59 | NUR ---
TELE-TD/INVESTIGATION SPECIALIST PTS NGT REENFORCED 26cm @ THE RIGHT NARE PLACEMENT CONFIRMED BY AUSCULTATION.
[2021-07-25] MEDS: ENOXAPARIN SODIUM 30 MG/0.3 ML DISP.SYRIN SQ SCH (20:03)
[2021-07-26] VITALS: BP 105/71
[2021-07-26] MEDS: PIPERACILLIN /TAZOBACTAM 3.375 G in IV D5W 50 ML IV SCH ×4 (02:28→20:11)
[2021-07-26 04:00] VITALS: BP 116/79
[2021-07-26] MEDS: GLUCERNA 1.2 1,000 ML BOTTLE NG PRN (05:25)
--- NOTE | 2021-07-26 07:30 | NUR ---
RN NOTES PT FOUND SLEEPING IN SEMI FOWLERS POSITION DISPLAYING NO S/S OF DISTRESS, FLACC = 0 AND BREATHING IS EVEN AND UNLABORED. REPORT FROM SUPERVISOR AIR CONDITIONING INSTALLER RN STATES THAT PT ATTEMPTED TO BITE RN WHILE RN WAS REPOSITIONING NGT JUSTIFYING RESTRAINTS. SUCH, BUE SOFTS RESTRAINTS APPLIED, PULSES PALPATED ON L&R RADIAL ARTERY, CAP REFILL < 3 SECONDS. RESIDUAL IS MINIMAL, < 5 ML. RN WILL MONITOR AND TREAT THROUGHOUT SHIFT. SAFETY MEASURES IN PLACE, BED LOCKED AND IN LOWEST POSITION, SIDE RAILS UPX2, CALL LIGHT WITHIN REACH, BED ALARM ARMED.
[2021-07-26 07:31] LABS: BASOPHILS % (AUTO) 0.1 % (0.0-2.0); EOSINOPHILS % (AUTO) 0.7 % (0.0-6.0); HEMATOCRIT 42 % (39-51); HEMOGLOBIN 13.9 g/dL (13.5-17.5); LYMPHOCYTES # (AUTO) 1.2 K/uL (0.8-4.8); LYMPHOCYTES % (AUTO) 10.5 % (20.0-44.0); MEAN CORPUSCULAR HGB CONC 33 g/dl (31.0-36.0); MEAN CORPUSCULAR VOLUME 91 fL (80-96); MONOCYTES # (AUTO) 0.5 K/uL (0.1-1.30); MONOCYTES % (AUTO) 4.6 % (2.0-12.0); NEUTROPHILS # (AUTO) 9.9 K/uL (1.8-8.9); NEUTROPHILS % (AUTO) 84.1 % (43.0-81.0); PLATELET COUNT (AUTO) 147 K/uL (150-450); RED BLOOD CELL COUNT(AUTO) 4.59 MIL/uL (4.5-6.0); WHITE BLOOD COUNT (AUTO) 11.8 K/uL (4.3-11.0)
[2021-07-26 08:00] VITALS: BP 104/69
[2021-07-26 08:01] LABS: CALCIUM, SERUM 8.5 mg/dL (8.5-10.1); CREATININE 1.4 mg/dL (0.6-1.3); MAGNESIUM 2.5 mg/dL (1.8-2.4); PHOSPHORUS 2.4 mg/dL (2.5-4.9); POTASSIUM 3.2 mmol/L (3.5-5.1)
[2021-07-26] MEDS ORDERED: POTASSIUM CHLORIDE 20 MEQ TAB.PRT.SR PO SCH (09:00)
[2021-07-26] MEDS: MUPIROCIN OINT 2% 22 GM TUBE NS SCH ×2 (09:42→20:12)
[2021-07-26] MEDS: POTASSIUM PHOSPHATE MM 7.5 MMOL in IV NS 0.9% 100 ML IV SCH ×2 (09:42→12:48)
[2021-07-26] MEDS: ASCORBIC ACID 500 MG TABLET PO SCH (09:43)
[2021-07-26] MEDS: MULTIVIT W/MINERALS 1 TAB TABLET PO SCH (09:43)
[2021-07-26] MEDS: DOCUSATE SODIUM 100 MG CAPSULE PO SCH (09:43)
[2021-07-26] MEDS: Z GUARD REMEDY 2 OZ OINT TP SCH (09:46)
[2021-07-26] MEDS: PROSOURCE / PROSTAT (PYXIS) 30 ML UDC PO SCH (09:46)
[2021-07-26 12:00] VITALS: BP 109/66
[2021-07-26] MEDS: Potassium Chloride 20 MEQ in IV D5W 1,000 ML IV PRN (12:48)
[2021-07-26 16:00] VITALS: BP 99/58
--- NOTE | 2021-07-26 19:00 | NUR ---
RN NOTES PT FOUND SLEEPING IN SEMI FOWLERS POSITION DISPLAYING NO S/S OF DISTRESS, FLACC = 0 AND BREATHING IS EVEN AND UNLABORED. PT SLEPT THROUGHOUT SHIFT. PULSES PALPATED ON L&R RADIAL ARTERY, CAP REFILL < 3 SECONDS. RESIDUAL IS MINIMAL, < 5 ML. SAFETY MEASURES IN PLACE, BED LOCKED AND IN LOWEST POSITION, SIDE RAILS UPX2, CALL LIGHT WITHIN REACH, BED ALARM ARMED. SBAR AND REPORT GIVEN TO NOCTURNIST PHYSICIAN RN, ALL QUESTIONS ANSWERED. PT ENDORSED IN STABLE CONDITION, ALL QUESTIONS ANSWERED.
--- NOTE | 2021-07-26 19:30 | NUR ---
RN NOTE PT RECEIVED IN BED. CURRENTLY ON 2L OF O2 VIA NC SHOWING NO S/S OF RESP DISTRESS. PT IS NON-VERBAL, RESTRAINTS NOTED. MERCHANT CATH NOTED. GLUCERNA RUNNING AT 50 ML/HR. NG TUBE FLUSHED, PATENT, AND INTACT. PT TOLERATING WELL. IV ACCESS NOTED ON RIGHT UPPER ARM PICC LINE, RIGHT HAND #18, AND LEFT HAND #18 NOTED. LINES FLUSHED, PATENT, AND INTACT WITH NO INFILTRATION. ALL SAFETY MEASURES IMPLEMENTED. BED ALARM ON. BED LOCKED AND IN LOWEST POSITION. WILL CONTINUE TO MONITOR AND ASSESS FOR ANY CHANGES.
[2021-07-26 20:00] VITALS: BP 94/62
[2021-07-26] MEDS: ENOXAPARIN SODIUM 30 MG/0.3 ML DISP.SYRIN SQ SCH (20:13)
--- NOTE | 2021-07-26 20:48 | NUR ---
RN NOTE PT PULLED OUT NG TUBE. WILL RE-INSERT NG TUBE. WIRE MESH FILTER FABRICATOR CARMELO MADE AWARE.
--- NOTE | 2021-07-26 22:23 | NUR ---
RN NOTE PT UNABLE TO SWALLOW WHILE RE-INSERTING NG TUBE. WILL TRY TO ATTEMPT RE-INSERTION ONCE PT HAS SOME REST. ACCOUNTS ADMINISTRATOR CARMELO MADE AWARE. DR. DONNY BERKOWITZ MADE AWARE WELL.
--- NOTE | 2021-07-26 22:42 | NUR ---
RN NOTE NG TUBE RE-INSERTED. DR. BERKOWITZ MADE AWARE. STAT CHEST X-RAY ORDERED PER MD.
[2021-07-27] VITALS: BP 114/65
[2021-07-27] MEDS: PIPERACILLIN /TAZOBACTAM 3.375 G in IV D5W 50 ML IV SCH ×4 (02:10→20:06)
[2021-07-27] MEDS: Potassium Chloride 20 MEQ in IV D5W 1,000 ML IV PRN (03:47)
[2021-07-27 04:00] VITALS: BP 121/63
--- NOTE | 2021-07-27 07:01 | NUR ---
RN NOTE NO CHANGES IN PT CONDITION DURING SHIFT. PT CURRENTLY ON 2L OF O2 VIA NC SHOWING NO S/S OF RESP DISTRESS. PT IS NON-VERBAL, RESTRAINTS RENEWED. GLUCERNA RUNNING AT 50 ML/HR. NG TUBE FLUSHED, PATENT, AND INTACT. PT TOLERATING WELL. IV ACCESS NOTED ON RIGHT UPPER ARM PICC LINE, RIGHT HAND #18, AND LEFT HAND #18 NOTED. LINES FLUSHED, PATENT, AND INTACT WITH NO INFILTRATION. ALL DUE MEDS GIVEN ORDERED. PT KEPT CLEAN AND COMFORTABLE. ALL SAFETY MEASURES IMPLEMENTED. BED ALARM ON. BED LOCKED AND IN LOWEST POSITION. WILL ENDORSE TO MORNING SHIFT RN FOR DENNIS.
[2021-07-27 07:26] LABS: EOSINOPHILS % (AUTO) 0.7 % (0.0-6.0); HEMATOCRIT 42 % (39-51); HEMOGLOBIN 13.9 g/dL (13.5-17.5); LYMPHOCYTES # (AUTO) 1.5 K/uL (0.8-4.8); LYMPHOCYTES % (AUTO) 11.3 % (20.0-44.0); MEAN CORPUSCULAR HGB CONC 33 g/dl (31.0-36.0); MEAN CORPUSCULAR VOLUME 91 fL (80-96); MONOCYTES # (AUTO) 0.5 K/uL (0.1-1.30); MONOCYTES % (AUTO) 4.2 % (2.0-12.0); NEUTROPHILS # (AUTO) 10.7 K/uL (1.8-8.9); NEUTROPHILS % (AUTO) 83.8 % (43.0-81.0); PLATELET COUNT (AUTO) 140 K/uL (150-450); RED BLOOD CELL COUNT(AUTO) 4.68 MIL/uL (4.5-6.0); WHITE BLOOD COUNT (AUTO) 12.8 K/uL (4.3-11.0)
--- NOTE | 2021-07-27 07:30 | NUR ---
RN OPENING NOTES PT CURRENTLY ON 5L OF O2 VIA NC SHOWING NO S/S OF RESP DISTRESS. RESTRAINTS RENEWED. GLUCERNA RUNNING AT 50 ML/HR. NG TUBE FLUSHED, PATENT, AND INTACT. PT HAS UNCONTROLLED A FIB. IV ACCESS NOTED ON RIGHT UPPER ARM PICC LINE, RIGHT HAND #18, AND LEFT HAND #18 NOTED. LINES FLUSHED, PATENT, PT KEPT CLEAN AND COMFORTABLE. ALL SAFETY MEASURES IMPLEMENTED. BED ALARM ON. BED LOCKED AND IN LOWEST POSITION. Addendum: 07/27/21 at 1521 by ROBYN FIELD RN ADDENDUM NGT CHECKED FOR PLACEMENT WITH COLLEAGUE ROBYN Pena WITH ONGOING D5W + 20MEQ KCL INFUSING WELL TO RT UPPER PICC LINE. SITE CLEAR. WILL PERFORM PRESCRIBED WOUND TREATMENT LATER. SEE NURSING FLOWSHEET FOR SKIN ISSUES
[2021-07-27 07:50] LABS: CALCIUM, SERUM 8.4 mg/dL (8.5-10.1); CREATININE 1.3 mg/dL (0.6-1.3); MAGNESIUM 2.2 mg/dL (1.8-2.4); PHOSPHORUS 2.2 mg/dL (2.5-4.9); POTASSIUM 3.4 mmol/L (3.5-5.1)
[2021-07-27 08:00] VITALS: BP 111/77
--- NOTE | 2021-07-27 08:00 | NUR ---
[place] RN NOTE REPORTED TO DR JOYCE NOTIFIED THAT DR GARDNER WANTS TO KEEP PATIENT IN [place] FOR NOW , STATED ITS FINE
--- NOTE | 2021-07-27 08:00 | NUR ---
RN NOTES NGT CHECKED FOR PLACEMENT ONGOING GT FEEDING GLUCERNA 50 ML/HR. O RESIDUAL DR. JOYCE NOTIFIED OF AFIB UNCONTROLLED WITH HR OF 120s- 130s LAST NIGHT. NO NEW ORDERS
--- NOTE | 2021-07-27 08:30 | NUR ---
[place] RN NOTE REPORTED TO DR JOYCE FRUIT RAISER THAT HR AFIB HR 120-133 NO NEW ORDER GIVEN
[2021-07-27] MEDS: MULTIVIT W/MINERALS 1 TAB TABLET PO SCH (09:12)
[2021-07-27] MEDS: DOCUSATE SODIUM 100 MG CAPSULE PO SCH (09:12)
[2021-07-27] MEDS: ASCORBIC ACID 500 MG TABLET PO SCH (09:13)
[2021-07-27] MEDS: GLUCERNA 1.2 1,000 ML BOTTLE NG PRN (09:26)
[2021-07-27] MEDS: PROSOURCE / PROSTAT (PYXIS) 30 ML UDC PO SCH (09:28)
[2021-07-27] MEDS: Z GUARD REMEDY 2 OZ OINT TP SCH (09:29)
[2021-07-27] MEDS: MUPIROCIN OINT 2% 22 GM TUBE NS SCH ×2 (09:30→20:11)
--- NOTE | 2021-07-27 09:30 | NUR ---
RN NOTES DUE MEDS GIVEN
[2021-07-27] MEDS: POTASSIUM CL. PREMIX PERIPHER. 50 ML IV SCH ×4 (10:17→13:22)
--- NOTE | 2021-07-27 11:11 | NUR ---
mejia rn note called to dr louis kumari , left a massage for patient for peg placement, spoke with kimberly
--- NOTE | 2021-07-27 11:45 | NUR ---
[place] RN NOTES PT FOR PEG PLACEMENT TOMORROW C/O DR. NOLAN NPO POST MIDNIGHT NO FAMILY. PER [facility] [place] [place]. CONSENT SIGNED BY DR. ESPINAL
[2021-07-27 12:00] VITALS: BP 122/80
--- NOTE | 2021-07-27 12:14 | NUR ---
mejia rn note spoke with dr myers ,ordered npo after mid night get consent for peg placement,order carried out
[2021-07-27] MEDS ORDERED: Sodium Phosphate 30 MMOL in IV NS 0.9% 250 ML IV SCH (15:00)
[2021-07-27 16:00] VITALS: BP 108/63
[2021-07-27] MEDS: MORPHINE SULFATE INJ 2 MG/ML DISP.SYRIN IV PRN (16:30)
--- NOTE | 2021-07-27 17:25 | NUR ---
RN NOTES PT FOUND HAVING LABORED BREATHING TEMP 101 BP 122/71 O2 SAT 88-94% AT 4L O2 NASAL CANULA. DR. ESPINAL INFORMED. - STAT ABG.
[2021-07-27 17:33] LABS: ABG BASE EXCESS 3.8 mmol/L; ABG OXYGEN SATURATION 93.1 % (92.0-98.5); ABG PCO2 39.6 mmHg (35.0-45.0); ABG PH 7.463 (7.350-7.450); ABG PO2 64.7 mmHg (75.0-100.0); COHb 0.5 % (0.5-1.5); MetHb 0.2 % (0.0-1.5); O2Hb 92.4 % (94.0-97.0); SITE, ABG Right Radial; VENT MODE, BG 5L NC
--- NOTE | 2021-07-27 17:40 | NUR ---
RT NOTE ABG RESULTS RELAYED TO CHARGE NURSE GHANSHYAM AND CAMILO CARLSON.
--- NOTE | 2021-07-27 17:40 | NUR ---
RN NOTES ABG RESULT RELAYED TO DR. ESPINAL. LOOKS FINE.
--- NOTE | 2021-07-27 17:42 | NUR ---
RN NOTES STAT CXR AND BLOOD CULTURE ORDERED PER DR. ESPINAL
--- NOTE | 2021-07-27 18:05 | NUR ---
[place] RN NOTE PER DR CECE WILLOUGHBY TO ORDER TYLENOL ORDER CARRIED OUT, BLOOD CX TAKEN
[2021-07-27] MEDS: ACETAMINOPHEN 650 MG/20.3 ML UDC NG PRN (18:21)
--- NOTE | 2021-07-27 18:30 | NUR ---
RN CLOSING NOTES PT CURRENTLY ON 5L OF O2 VIA NC. 95% o2 SAT. PT HAD LABORED BREATHING DURING THE END OF THE SHIFT. PT HAS UNCOTROLLED A FIB WITH SR 109. PT IS NON-VERBAL, RESTRAINTS RENEWED. PT GTUBE FEEDING WAS STOPPED FOR A WHILE. NG TUBE FLUSHED, PATENT, AND INTACT. PT TOLERATING WELL. IV ACCESS NOTED ON RIGHT UPPER ARM PICC LINE, RIGHT HAND #18, AND LEFT HAND #18 NOTED. LINES FLUSHED, PATENT, AND INTACT WITH NO INFILTRATION. PT KEPT CLEAN AND COMFORTABLE. ALL SAFETY MEASURES IMPLEMENTED. BED ALARM ON. BED LOCKED AND IN LOWEST POSITION. WILL ENDORSE TO STEAM PRESSURE CHAMBER OPERATOR
--- NOTE | 2021-07-27 18:47 | NUR ---
RN NOTES TEMPERATURE RECHECKED = 100 DEG
--- NOTE | 2021-07-27 19:20 | NUR ---
RN NOTE RECEIVED PATIENT IN BED RESTING NON VERBAL LABORED BREATHING ON 5L OXYGEN VIA NASAL CANNULA O2:92% IV SITE IS ON RIGHT UPPER ARM PICC LINE AND RIGHT AC INTACT PATENT ON POTASSIUM CHLORIDE IV HYDRATION RUNNING 75CC/HR ON NGT CHECKED PLACEMENT, IN PLACE ON GLUCERNA 1.2 50CC/HR MERCHANT CATHETER IN PLACE URINE DRAINING DARK YELLOW BY GRAVITY HEAD OF THE BED ELEVATED SAFETY MEASURE IMPLEMENT CONTINUE TO MONITOR.
[2021-07-27 20:00] VITALS: BP 102/58
[2021-07-27] MEDS: ENOXAPARIN SODIUM 30 MG/0.3 ML DISP.SYRIN SQ SCH (20:25)
--- NOTE | 2021-07-27 21:00 | NUR ---
RN NOTE HELD LOVEJESSIEX AT 2100 FOR PROCEDURE TOMORROW CONTINUE TO MONITOR.
[2021-07-28] VITALS (26 sets, daily range): BP systolic 59–122; BP diastolic 41–79
[2021-07-28] MEDS: PIPERACILLIN /TAZOBACTAM 3.375 G in IV D5W 50 ML IV SCH ×4 (01:12→20:58)
[2021-07-28] MEDS: Potassium Chloride 20 MEQ in IV D5W 1,000 ML IV PRN ×2 (01:13→17:29)
[2021-07-28] MEDS: MORPHINE SULFATE INJ 2 MG/ML DISP.SYRIN IV PRN (02:32)
--- NOTE | 2021-07-28 03:30 | NUR ---
RN NOTE PATIENT HR IS GOING TO ABOUT 140-147 AT 2:[address] PATTERN PERFORATING MACHINE OPERATOR SYSTEMS COORDINATOR DONNY WITH NEW ORDER ONE BOLUS 250 NS AND ATIVAN 1MG ONE TIME ONLY NOTED AND CARRIED OUT CONTINUE TO MONITOR.
--- NOTE | 2021-07-28 03:45 | NUR ---
0345 JUAN BERKOWITZ WAS NOTIFIED OF PATIENT'S HR IN THE 140S SUSTAINED WITH ORDER TO GIVE ONE DOSE OF ATIVAN 1 MG IVP AND TO GIVE 250ML OF NS BOLUS. ORDERS NOTED AND CARRIED OUT.
[2021-07-28] MEDS ORDERED: IV NS 0.9% 250 ML IV ONE (04:00)
[2021-07-28] MEDS ORDERED: LORAZEPAM INJ 2 MG/ML VIAL IV PRN ×2 (04:00→06:00)
[2021-07-28 05:16] LABS: BASOPHILS # (AUTO) 0.1 K/uL (0.0-0.2); BASOPHILS % (AUTO) 0.5 % (0.0-2.0); HEMATOCRIT 39 % (39-51); HEMOGLOBIN 12.6 g/dL (13.5-17.5); LYMPHOCYTES # (AUTO) 1.2 K/uL (0.8-4.8); LYMPHOCYTES % (AUTO) 8.5 % (20.0-44.0); MEAN CORPUSCULAR HGB CONC 33 g/dl (31.0-36.0); MEAN CORPUSCULAR VOLUME 91 fL (80-96); MONOCYTES # (AUTO) 0.4 K/uL (0.1-1.30); NEUTROPHILS # (AUTO) 12.1 K/uL (1.8-8.9); PLATELET COUNT (AUTO) 141 K/uL (150-450); RED BLOOD CELL COUNT(AUTO) 4.25 MIL/uL (4.5-6.0); WHITE BLOOD COUNT (AUTO) 13.9 K/uL (4.3-11.0)
[2021-07-28 05:28] LABS: CALCIUM, SERUM 7.8 mg/dL (8.5-10.1); CREATININE 1.5 mg/dL (0.6-1.3); MAGNESIUM 2.1 mg/dL (1.8-2.4); PHOSPHORUS 3.3 mg/dL (2.5-4.9); POTASSIUM 3.9 mmol/L (3.5-5.1)
--- NOTE | 2021-07-28 05:30 | NUR ---
0530 JUAN BERKOWITZ AT BEDSIDE AND AWARE OF PATIENT'S HR STILL IN THE 140S WITH ORDER TO GIVE ANOTHER DOSE OF 1MG ATIVAN ONCE. ORDER NOTED.
[2021-07-28] MEDS ORDERED: MORPHINE SULFATE INJ 2 MG/ML DISP.SYRIN IV ONE (06:00)
--- NOTE | 2021-07-28 06:00 | NUR ---
RN NOTE PATIENT CONVERT SINUS TACHYCARDIA 144 TO SINUS RHYTHM 86 CONTINUE TO MONITOR.
--- NOTE | 2021-07-28 06:05 | NUR ---
RN NOTE ANESTHESIOLOGIST MET GIRMM IN TH ROOM,CONTINUE TO MONITOR
--- NOTE | 2021-07-28 06:07 | NUR ---
0607 PATIENT CONVERTED TO NSR HR IN THE 80S.
--- NOTE | 2021-07-28 06:22 | NUR ---
RN NOTE PATIENT LEFT ROOM TO OR FOR G-TUBE PLACEMENT.
--- NOTE | 2021-07-28 06:58 | NUR ---
RN NOTE MORPHINE NOT GIVEN PATIENT IS NOT AVAILABLE
[2021-07-28] MEDS ORDERED: ALBUTEROL FS 2.5 MG/3 ML VIAL.NEB ONE (07:19)
--- NOTE | 2021-07-28 07:51 | NUR ---
NURSING TECHNICIAN NOTES RECEIVED PT FROM O.R. STAFF VIA BED, PT IS ASLEEP, AROUSABLE TO PAINFUL STIMULI, NON VERBAL, OPENS EYES, MOUTH BREATHER, S/P PEG TUBE, POST ORDERS RECEIVED FROM MD, VITALS TAKEN AND RECORDED, ON 5L OF O2 VIA MASK WITH O2 SAT OF 95%, WILL CONTINUE TO MONITOR.
[2021-07-28] MEDS: ASCORBIC ACID 500 MG TABLET PO SCH (08:33)
[2021-07-28] MEDS: DOCUSATE SODIUM 100 MG CAPSULE PO SCH (08:33)
[2021-07-28] MEDS: MULTIVIT W/MINERALS 1 TAB TABLET PO SCH (08:33)
[2021-07-28] MEDS: MUPIROCIN OINT 2% 22 GM TUBE NS SCH ×2 (08:47→21:00)
[2021-07-28] MEDS: Z GUARD REMEDY 2 OZ OINT TP SCH (08:47)
[2021-07-28] MEDS: PROSOURCE / PROSTAT (PYXIS) 30 ML UDC PO SCH (09:03)
--- NOTE | 2021-07-28 09:07 | NUR ---
ELECTRIC FORK OPERATOR NOTES PT SEEN AND EXAMINED BY DR. ESPINAL, INFORMED OF PT'S CURRENT VITALS, NO NEW ORDER GIVEN, WILL CONTINUE TO MONITOR.
--- NOTE | 2021-07-28 13:44 | NUR ---
patient tachypneic desaturates on o2 mask ,placed on norebreather ,awaits abg per md order.
[2021-07-28 14:04] LABS: ABG BASE EXCESS 5.4 mmol/L; ABG PCO2 47.7 mmHg (35.0-45.0); ABG PH 7.427 (7.350-7.450); AaDO2 598.3 mmHg; COHb 0.2 % (0.5-1.5); MetHb 0.4 % (0.0-1.5); O2Hb 92.4 % (94.0-97.0); SITE, ABG Right Radial; VENT MODE, BG 15L NRB
--- NOTE | 2021-07-28 15:21 | NUR ---
CXR RESULT DONE,PT. ASSESSED BY ICU CHARGE NURSE DEON SHE WILL UPDATE DR. RIVERA.
--- NOTE | 2021-07-28 16:00 | NUR ---
DR. RIVERA MADE AWARE OF ABG/CXR RESULTS. MD UPDATE RE: PATIENT STATUS-TACHYPNEIC AN 15L NRBM. MD ORDERED CT PULMO ANGIO AND BLE DOPPLER STUDY. ORDER PLACED BY [place] YUSUF.
[2021-07-28] MEDS: ACETAMINOPHEN 650 MG/20.3 ML UDC NG PRN (16:15)
--- NOTE | 2021-07-28 16:23 | NUR ---
awaits ctangiogram no family dr. gan and dr. gastelum ok to do the test to r/o PE.
[2021-07-28] MEDS ORDERED: IOHEXOL-350 100 ML VIAL IV ONE (17:22)
[2021-07-28] MEDS ORDERED: CT SWABBABLE VALVE TRANS SET 1 EA INFUS.SET MC ONE (17:22)
--- NOTE | 2021-07-28 18:05 | NUR ---
PATIENT TOLERATED CT ANGIO,STILL ON NOREBREATHER AWAITS RESULTS SATURATION 95%.
--- NOTE | 2021-07-28 18:53 | NUR ---
CNC CUTTING OPERATOR NOTES PT IN BED, AROUSABLE BY PAINFUL STIMULI, NON VERBAL, ON O2 AT 15LPM VIA NON REBREATHER MASK, RESPIRATION RATE AT 30, AFEBRILE AT THIS TIME, BP STABLE, MD AWARE OF PT'S CURRENT STATUS, AWAITING CT PULMO ANGIO RESULT.
--- NOTE | 2021-07-28 19:36 | NUR ---
TELE-TD/EVENT PLANNER DR. BERKOWITZ AT BEDSIDE TO EVAL PT. ORDERS TO TRANSFER TO ICU AND STAT ABG.
[2021-07-28 19:45] LABS: ABG BASE EXCESS -2.2 mmol/L; ABG OXYGEN SATURATION 93.8 % (92.0-98.5); ABG PCO2 79.1 mmHg (35.0-45.0); ABG PH 7.174 (7.350-7.450); ABG PO2 82.6 mmHg (75.0-100.0); AaDO2 551.3 mmHg; COHb 0.1 % (0.5-1.5); MetHb 0.6 % (0.0-1.5); O2Hb 93.1 % (94.0-97.0); SITE, ABG Left Radial; VENT MODE, BG NRB
[2021-07-28] MEDS ORDERED: NOREPINEPHRINE 8MG/250ML RTU 250 ML IV ONE (20:06)
[2021-07-28] MEDS: NOREPINEPHRINE 8 MG in IV NS 0.9% 242 ML IV PRN (20:27)
--- NOTE | 2021-07-28 20:42 | NUR ---
PATIENT SHOWING DISTRESS WHILE ON [place], PLACED ON 100% NRB MASK. ABG OBTAINED AND RESULTS WERE RELAYED TO RN. PATIENT TRANSFERRED TO ICU, INTUBATED WITH ETT 7.5 @ 23 cm AT THE LIP BY DR. MELVIN. PATIENT PLACED ON VENT SUPPORT WITH INITIAL SETTINGS OF AC 16, 500 Vt, 100%, +5. PATIENT IS STABLE WITH NO ADVERSE REACTIONS AFTER INTUBATION. CONTINUE TO MONITOR PATIENT. Addendum: 07/28/21 at 2044 by KIARA CAMPOS RT Amended: Links added.
[2021-07-28] MEDS ORDERED: ENOXAPARIN SODIUM 40 MG/0.4 ML DISP.SYRIN SQ SCH (21:00)
[2021-07-28] MEDS: ENOXAPARIN SODIUM 80 MG/0.8 ML DISP.SYRIN SQ SCH (21:34)
[2021-07-28] MEDS: INSULIN GLARGINE, 100 UNIT/ML CARTRIDGE SQ SCH (21:35)
[2021-07-28 22:17] LABS: ABG OXYGEN SATURATION 98.7 % (92.0-98.5); ABG PCO2 41.9 mmHg (35.0-45.0); ABG PH 7.408 (7.350-7.450); ABG PO2 117.2 mmHg (75.0-100.0); AaDO2 553.9 mmHg; COHb 0.4 % (0.5-1.5); MetHb 0.3 % (0.0-1.5); PEEP,BG 5 cm H2O; SITE, ABG Right Radial; VT, ABG 500 mL
--- NOTE | 2021-07-28 22:22 | NUR ---
ICU/CONTROL CABINET ASSEMBLER POST INTUBATION ABG RELAYED TO DR. BERKOWITZ NO NEW ORDERS. WILL CONTINUE TO MONITOR CLOSELY.
[2021-07-29] VITALS (96 sets, daily range): BP systolic 80–129; BP diastolic 52–81
[2021-07-29] MEDS: PIPERACILLIN /TAZOBACTAM 3.375 G in IV D5W 50 ML IV SCH ×4 (01:39→19:49)
[2021-07-29] MEDS: PROPOFOL 100 ML IV PRN ×3 (03:07→20:31)
--- NOTE | 2021-07-29 03:13 | NUR ---
ICU/IMMIGRATION CONSULTANT PT BREATHING OVER THE VENT 30-35 BPM. PROPOFOL DRIP INITIATED ORDERED. WILL CONTINUE TO MONITOR CLOSELY.
--- NOTE | 2021-07-29 04:30 | NUR ---
ICU/MESH CUTTER PT CONVERTED TO SVT AT A RATE 0F 170-[address] BERKOWITZ NOTIFIED NEW ORDERS FOR 500ML SALINE BOLUS IV AND LOPRESSOR 5MG IVP RECIEVED AND CARRIED OUT. 0450 PT CONVERTED BACK TO NSR AT RATE OF 93 BPM WILL CONTINUE TO MONITOR
[2021-07-29] MEDS: ACETAMINOPHEN 650 MG/20.3 ML UDC NG PRN ×2 (04:42→17:05)
[2021-07-29 04:56] LABS: BASOPHILS % (AUTO) 0.2 % (0.0-2.0); EOSINOPHILS % (AUTO) 0.6 % (0.0-6.0); HEMATOCRIT 40 % (39-51); LYMPHOCYTES # (AUTO) 1.7 K/uL (0.8-4.8); LYMPHOCYTES % (AUTO) 7.4 % (20.0-44.0); MEAN CORPUSCULAR HGB CONC 33 g/dl (31.0-36.0); MEAN CORPUSCULAR VOLUME 92 fL (80-96); MONOCYTES # (AUTO) 0.6 K/uL (0.1-1.30); MONOCYTES % (AUTO) 2.7 % (2.0-12.0); NEUTROPHILS # (AUTO) 20.8 K/uL (1.8-8.9); NEUTROPHILS % (AUTO) 89.1 % (43.0-81.0); PLATELET COUNT (AUTO) 226 K/uL (150-450); RED BLOOD CELL COUNT(AUTO) 4.34 MIL/uL (4.5-6.0); WHITE BLOOD COUNT (AUTO) 23.3 K/uL (4.3-11.0)
[2021-07-29] MEDS ORDERED: METOPROLOL TARTRATE INJ 5 MG/5 ML AMPUL IVP ONE (05:00)
[2021-07-29] MEDS ORDERED: IV NS 0.9% 500 ML IV ONE (05:00)
[2021-07-29 05:09] LABS: CALCIUM, SERUM 7.9 mg/dL (8.5-10.1); MAGNESIUM 2.4 mg/dL (1.8-2.4); PHOSPHORUS 2.7 mg/dL (2.5-4.9); POTASSIUM 4.4 mmol/L (3.5-5.1)
[2021-07-29] MEDS: Potassium Chloride 20 MEQ in IV D5W 1,000 ML IV PRN (05:39)
--- NOTE | 2021-07-29 05:50 | NUR ---
FIO2 TITRATED RN NOTIFIED.
[2021-07-29] MEDS: GLUCERNA 1.2 1,000 ML BOTTLE NG PRN (08:24)
[2021-07-29] MEDS: Z GUARD REMEDY 2 OZ OINT TP SCH (08:35)
[2021-07-29] MEDS: ASCORBIC ACID 500 MG TABLET PO SCH (08:35)
[2021-07-29] MEDS: MUPIROCIN OINT 2% 22 GM TUBE NS SCH ×2 (08:35→20:25)
[2021-07-29] MEDS: DOCUSATE SODIUM 100 MG CAPSULE PO SCH (08:35)
[2021-07-29] MEDS: MULTIVIT W/MINERALS 1 TAB TABLET PO SCH (08:35)
[2021-07-29] MEDS: ENOXAPARIN SODIUM 80 MG/0.8 ML DISP.SYRIN SQ SCH ×2 (08:53→20:25)
[2021-07-29] MEDS ORDERED: DEXTROSE 50%-WATER 50 ML DISP.SYRIN IV PRN (09:00)
[2021-07-29] MEDS: IV 1/2NS 1000 ML 1,000 ML IV PRN (09:50)
[2021-07-29] MEDS: PROSOURCE / PROSTAT (PYXIS) 30 ML UDC PO SCH (09:51)
--- NOTE | 2021-07-29 10:07 | NUR ---
rn notes patient getting ECHO at this time. seen hospitalist get TO order of insulin mild sliding scale, order taken and carried out.
[2021-07-29] MEDS ORDERED: ETOMIDATE 2 MG/ML VIAL IV ONE (11:14)
[2021-07-29] MEDS ORDERED: ROCURONIUM BROMIDE 50 MG/5 ML IV ONE (11:14)
[2021-07-29] MEDS: BLOOD SUGAR DIAGNOSTIC 1 EACH STRIP IN SCH ×3 (11:29→23:07)
[2021-07-29] MEDS: INSULIN REGULAR, HUMAN 100 UNIT/ML 3 ML VIAL SQ PRN ×3 (11:33→23:09)
--- NOTE | 2021-07-29 11:36 | NUR ---
rn notes seen patient via event crew technician Dr Castaneda, no sedation vacation today patient. Get TO order patient tank car loader consultation, notified hospitalist Dr Palencia.
[2021-07-29 12:19] LABS: ALANINE AMINOTRANSFERASE 40 U/L (12-78); ALKALINE PHOSPHATASE 141 U/L (46-116); ASPARTATE AMINOTRANSFERASE 27 U/L (15-37); BILIRUBIN,TOTAL 2.2 mg/dL (0.2-1.0); CALCIUM, SERUM 8.1 mg/dL (8.5-10.1); CARBON DIOXIDE 28 mmol/L (21-32); CHLORIDE 113 mmol/L (98-107); CREATININE 1.8 mg/dL (0.6-1.3); POTASSIUM 4.3 mmol/L (3.5-5.1); SODIUM SERUM 149 mmol/L (136-145); TOTAL PROTEIN, SERUM 6.4 g/dL (6.4-8.2); UREA NITROGEN, BLOOD 37 mg/dL (7-18)
[2021-07-29 12:29] LABS: ALBUMIN 1.3 g/dL (3.4-5.0); GLUCOSE 389 mg/dL (74-106)
[2021-07-29] MEDS: NOREPINEPHRINE 8 MG in IV NS 0.9% 242 ML IV PRN (12:51)
--- NOTE | 2021-07-29 17:06 | NUR ---
rn notes T_99.6F administered Tylenol 650 ml via gt. BS-236 mg/dl coverage given.
--- NOTE | 2021-07-29 18:30 | NUR ---
RN NOTES RECHECKED T-98.6 F, PM CARE DONE SUCTION, MOUTH CARE, TITRATED GT FEEDING 40ML/HR ,NO RESIDUAL. PICC LINE RIGHT UA INFUSING DIPRIVAN 20MCG/KG/HR, LEVOPHED 0.1 MCG/KG/HR, AND 1/2 NS @75 ML/HR INTACT. FLASK 250 ML OF WATER Q 4 HR. MERCHANT DRAINING DARK TEA COLOR URINE. KEEP HOB ELEVATED FOR ASPIRATION PRECAUTION. RECHECKED SOFT BILATERAL SOFT RESTRAIN FOR CIRCULATION. ENDORSED ONCOMING NURSE FOLLOW PLAN OF CARE.
--- NOTE | 2021-07-29 19:15 | NUR ---
PATIENT RECEIVED ORALLY INTUBATED /VENT SETTING PER MD FIO2 50% SPO2 96% O BILATERAL PUPILS SLUGGISH TO LIGHT , ON PROPOFOL 20 MCG/KG/MIN WILL TITRATE PER PROTOCOL, ON LEVOPHED @ 0.1 MCG/KG/MIN WILL TITRATE PER PROTOCOL,AND 1/2 NS @ 75ML/HR INFUSING VIA JAVAN PICC, GT AT PLACE WITH ONGOING GLUCERNA @ 40ML/HR RESIDUAL 5ML, FC INPLACED TO CLEAR YELLOW UO. BILATERAL SOFT WRIST RESTRAINTS ON PLACE CIRCULATION WILL BE CHECKED REGULARLY BED ON LOWEST POSITION AND LOCKED SIDE RAILS UP X2 WILL CONT TO MONITOR
[2021-07-29] MEDS: INSULIN GLARGINE, 100 UNIT/ML CARTRIDGE SQ SCH (23:02)
[2021-07-30] VITALS (108 sets, daily range): BP systolic 70–184; BP diastolic 44–124
[2021-07-30] MEDS: NOREPINEPHRINE 8 MG in IV NS 0.9% 242 ML IV PRN ×4 (00:01→22:52)
[2021-07-30] MEDS: IV 1/2NS 1000 ML 1,000 ML IV PRN ×2 (01:06→13:03)
--- NOTE | 2021-07-30 01:15 | NUR ---
PT ON BED STILL SEDATED AND O ETT/VENT SETTING PER MD FIO2 50% SPO2 95-97 % NO SIGN OF RESPIRATORY DISTRESS, NO PAIN NOTED, WILL CONT TO MONITOR
[2021-07-30] MEDS: PIPERACILLIN /TAZOBACTAM 3.375 G in IV D5W 50 ML IV SCH ×3 (01:22→13:07)
[2021-07-30] MEDS: PROPOFOL 100 ML IV PRN ×5 (02:14→20:41)
[2021-07-30] MEDS: BLOOD SUGAR DIAGNOSTIC 1 EACH STRIP IN SCH ×3 (05:18→16:35)
[2021-07-30] MEDS: INSULIN REGULAR, HUMAN 100 UNIT/ML 3 ML VIAL SQ PRN ×3 (05:20→17:18)
--- NOTE | 2021-07-30 07:12 | NUR ---
PT STILL ON BED ORALLY INTUBATED VENT SETTING PER MD FIO2 50% SPO2 95-97% STILL SEDATED WITH PROPOFOL @ 50 MCG/KG/MIN, ALSO WITH ONGOING LEVOPHED @ 0.2 MCG/KG/MIN AND 1/2 NS @ 75 ML/HR INFUSING VIA JAVAN PICC, TELE MONITOR READS SINUS TACHY 110'S, BED ON LOWEST POSITION AND LOCKED SIDE RAILS UP X3 CALL LIGHT WITHIN REACH ENDORSED TO AM SHIFT NURSE
--- NOTE | 2021-07-30 08:00 | NUR ---
RN NOTES PATIENT EET/VENT SETTING WITH SEDATED OF DIPRIVAN 50MCG/KG/HR. SUCTION , MOUTH CARE, VENT SETTING FIO2 40%, SPO2 95, PEEP-5. ALSO WITH ONGOING LEVOPHED @ 0.1 MCG/KG/MIN AND 1/2 NS @ 75 ML/HR INFUSING VIA JAVAN INTACT, FLASHING WELL. VSS, NO ACUTE RESPIRATORY DISTRESS. AFTER FLASHING MERCHANT GET 500ML OUTPUT. MEDICATION ADMINISTERED VIA GT. WILL FOLLOW UP.
[2021-07-30] MEDS: MULTIVIT W/MINERALS 1 TAB TABLET PO SCH (08:34)
[2021-07-30] MEDS: ASCORBIC ACID 500 MG TABLET PO SCH (08:34)
[2021-07-30] MEDS: DOCUSATE SODIUM 100 MG CAPSULE PO SCH (08:34)
[2021-07-30] MEDS: MUPIROCIN OINT 2% 22 GM TUBE NS SCH ×2 (08:35→20:39)
[2021-07-30] MEDS: ENOXAPARIN SODIUM 80 MG/0.8 ML DISP.SYRIN SQ SCH ×2 (08:36→20:40)
[2021-07-30] MEDS: Z GUARD REMEDY 2 OZ OINT TP SCH (08:37)
[2021-07-30] MEDS: GLUCERNA 1.2 1,000 ML BOTTLE NG PRN (11:06)
[2021-07-30] MEDS: PROSOURCE / PROSTAT (PYXIS) 30 ML UDC PO SCH (11:06)
[2021-07-30] MEDS: ACETAMINOPHEN 650 MG/20.3 ML UDC NG PRN (11:57)
--- NOTE | 2021-07-30 11:59 | NUR ---
jose urbina T-102.1 F, administered tylenol 650 ml via GT, and cooling measure. sedation vacation done. Assist turn and reposition q 2 hr.
--- NOTE | 2021-07-30 12:00 | NUR ---
RN NOTES BS-198 MG/DL COVERAGE GIVEN, TRIGGER WOUND CONSULT, AND LOTRIMIN CREAM 1% PER HOSPITALIST ORDER.
--- NOTE | 2021-07-30 13:24 | NUR ---
RN NOTES RECHECKED T-99.0F. FOLLOW UP.
[2021-07-30 14:51] LABS: BASOPHILS # (AUTO) 0.1 K/uL (0.0-0.2); BASOPHILS % (AUTO) 0.6 % (0.0-2.0); EOSINOPHILS % (AUTO) 2.3 % (0.0-6.0); HEMATOCRIT 30 % (39-51); HEMOGLOBIN 10.4 g/dL (13.5-17.5); LYMPHOCYTES # (AUTO) 2.2 K/uL (0.8-4.8); LYMPHOCYTES % (AUTO) 12.3 % (20.0-44.0); MEAN CORPUSCULAR HGB CONC 35 g/dl (31.0-36.0); MEAN CORPUSCULAR VOLUME 92 fL (80-96); MONOCYTES # (AUTO) 0.5 K/uL (0.1-1.30); MONOCYTES % (AUTO) 2.8 % (2.0-12.0); NEUTROPHILS # (AUTO) 14.9 K/uL (1.8-8.9); PLATELET COUNT (AUTO) 186 K/uL (150-450); RED BLOOD CELL COUNT(AUTO) 3.25 MIL/uL (4.5-6.0); WHITE BLOOD COUNT (AUTO) 18.2 K/uL (4.3-11.0)
[2021-07-30] MEDS ORDERED: VANCOMYCIN 1 GM in IV D5W 250ml IV ONE (15:00)
[2021-07-30] MEDS: CLOTRIMAZOLE 1% 15 GM TUBE TP SCH (16:35)
--- NOTE | 2021-07-30 18:31 | NUR ---
RN NOTES PM CARE DONE, SUCTION, MOUTH CARE DONE. MEDICATION ADMINISTERED VIA GT, KEEP HOB ELEVATED FOR ASPIRATION PRECAUTION. INFUSING JAVAN ON PICC LINE LEVOPHED 0.2 MCG/KG/HR, DIPRIVAN 45MCG/ML/HR AND 1/2 NS AT 75 ML/HR. RUNNING GT FEEDING @50 ML/HR INTACT, PATENT. T-98.7F AT THIS TIME, MERCHANT DRAINING VIA GRAVITY. KEEP HOB ELEVATED,. MERCHANT DRAINING DARK YELLOW OUTPUT WAS -845 ML. ASSIST TURN AND REPOSTION Q 2 HR. ENDORSED ONCOMING NURSE FOLLOW PLAN OF CARE.
[2021-07-30 19:23] LABS: CALCIUM, SERUM 6.2 mg/dL (8.5-10.1); CREATININE 2.1 mg/dL (0.6-1.3); POTASSIUM 3.6 mmol/L (3.5-5.1)
--- NOTE | 2021-07-30 19:30 | NUR ---
RN NOTE RECEIVED PATIENT IN BED. SEDATED. ON PROPOFOL @45. ETT 7.5/23CM MECHANICAL VENT AC 16 TV 470 FIO2 40% PEEP 5. RESPIRATIONS ARE EVEN AND UNLABORED. NO SECRETIONS AT THIS TIME. NO S/S PAIN NOTED. IN NO APPARENT DISTRESS. TELE MONITOR REDS SINUS RHYTHM HR 98. IV ACCESS IN JAVAN PICC LINE RUNNING LEVO @0.2mcg/kg/.min AND 1/2 NS @75. GTUBE PRESENT, NO RESIDUAL, FLUSHED WITH NO RESISTANCE, FEEDING RUNNING GLUCERNA 1.2 @50ML/HR. MERCHANT CATHETER DRAINING TO GRAVITY, URINE IS YOLANDA WITH SEDIMENT. BILATERAL SOFT WRIST RESTRAINTS, SKIN INTEGRITY MAINTAINED. BED IS LOW AND LOCKED, HOB ELEVATED IN SEMI FOWLERS, SIDE RAILS UP X3.
[2021-07-30] MEDS: MEROPENEM 500 MG in IV NS 0.9% 50 ML IV SCH (20:38)
[2021-07-30] MEDS: INSULIN GLARGINE, 100 UNIT/ML CARTRIDGE SQ SCH (21:49)
[2021-07-31] VITALS (100 sets, daily range): BP systolic 69–127; BP diastolic 45–99
[2021-07-31] MEDS: BLOOD SUGAR DIAGNOSTIC 1 EACH STRIP IN SCH ×4 (00:08→18:51)
[2021-07-31] MEDS: INSULIN REGULAR, HUMAN 100 UNIT/ML 3 ML VIAL SQ PRN ×4 (00:12→18:48)
[2021-07-31] MEDS: PROPOFOL 100 ML IV PRN ×4 (01:48→19:59)
[2021-07-31] MEDS: IV 1/2NS 1000 ML 1,000 ML IV PRN ×2 (03:35→20:38)
[2021-07-31 04:30] LABS: BASOPHILS # (AUTO) 0.1 K/uL (0.0-0.2); BASOPHILS % (AUTO) 0.6 % (0.0-2.0); HEMATOCRIT 33 % (39-51); HEMOGLOBIN 10.9 g/dL (13.5-17.5); LYMPHOCYTES # (AUTO) 2.4 K/uL (0.8-4.8); LYMPHOCYTES % (AUTO) 12.3 % (20.0-44.0); MEAN CORPUSCULAR HGB CONC 33 g/dl (31.0-36.0); MEAN CORPUSCULAR VOLUME 90 fL (80-96); MONOCYTES # (AUTO) 0.5 K/uL (0.1-1.30); MONOCYTES % (AUTO) 2.8 % (2.0-12.0); NEUTROPHILS # (AUTO) 15.8 K/uL (1.8-8.9); NEUTROPHILS % (AUTO) 81.3 % (43.0-81.0); PLATELET COUNT (AUTO) 224 K/uL (150-450); RED BLOOD CELL COUNT(AUTO) 3.66 MIL/uL (4.5-6.0); WHITE BLOOD COUNT (AUTO) 19.4 K/uL (4.3-11.0)
[2021-07-31 04:43] LABS: CALCIUM, SERUM 7.3 mg/dL (8.5-10.1); CREATININE 1.9 mg/dL (0.6-1.3); MAGNESIUM 2.1 mg/dL (1.8-2.4); PHOSPHORUS 3.8 mg/dL (2.5-4.9); POTASSIUM 3.6 mmol/L (3.5-5.1)
--- NOTE | 2021-07-31 06:52 | NUR ---
RN NOTE PATIENT SEDATED. ON PROPOFOL @45. ETT 7.5/23CM MECHANICAL VENT, NO CHANGES IN SETTINGS. NO RESP DISTRESS. NO PAIN. TELE MONITOR REDS SINUS TACHYCARDIA. JAVAN PICC LINE RUNNING LEVO @0.2MCG AND 1/2 NS @75. GTUBE RUNNING GLUCERNA 1.2 @50ML/HR. MERCHANT CATHETER OUTPUT 100ML YOLANDA WITH SEDIMENT. BILATERAL SOFT WRIST RESTRAINTS MAINTAINED, NO SKIN BREAK DOWN, GOOD CAP REFILL. BED IS LOW AND LOCKED, HOB ELEVATED IN SEMI FOWLERS, SIDE RAILS UP X3.
[2021-07-31] MEDS: NOREPINEPHRINE 8 MG in IV NS 0.9% 242 ML IV PRN ×3 (07:00→20:38)
--- NOTE | 2021-07-31 07:52 | NUR ---
WOUND CARE CONSULT: PT PRESENTS WITH SACRAL INTACT DEEP TISSUE INJURY WELL RASH TO PERINEUM AND GROIN FOLDS. PT NOTED TO BE INCONTINENT OF LOOSE STOOL. RECOMMENDATIONS MADE FOR SKIN PROTECTION AND WOUND CARE. DISCUSSED WITH NURSING STAFF. PT IS FOLLOWED BY PODIATRY FOR LOWER EXTREMITY WOUNDS NOTED TO BE PRESENT ON ADMISSION. PT NOTED TO HAVE MULTIPLE CO-MORBHIDITIES INCLUDING PNEUMONIA, RESPIRATORY FAILURE (CURRENTLY INTUBATED), PUMOMARY EMBOLUS, ACUTE RENAL FAILURE, MALNUTRITION, DIABETES, LYMPHADENOPATHY AND UTI. DUE TO MULTIPLE CO-MORBIDITIES, FURTHER SKIN BREAKDOWN MAY BE UNAVOIDABLE. MD IN AGREEMENT WITH PLAN OF CARE. Addendum: 07/31/21 at 0756 by LYNETTE SAAVEDRA WNDNU Amended: Links added.
[2021-07-31 08:05] LABS: ABG BASE EXCESS 0.3 mmol/L; ABG OXYGEN SATURATION 96.4 % (92.0-98.5); ABG PCO2 33.2 mmHg (35.0-45.0); ABG PH 7.468 (7.350-7.450); COHb 0.3 % (0.5-1.5); MetHb 0.6 % (0.0-1.5); O2Hb 95.5 % (94.0-97.0); SITE, ABG Right Radial
[2021-07-31] MEDS: MEROPENEM 500 MG in IV NS 0.9% 50 ML IV SCH ×2 (08:52→19:59)
[2021-07-31] MEDS: DOCUSATE SODIUM 100 MG CAPSULE PO SCH (09:00)
[2021-07-31] MEDS: ASCORBIC ACID 500 MG TABLET PO SCH (09:45)
[2021-07-31] MEDS: MULTIVIT W/MINERALS 1 TAB TABLET PO SCH (09:45)
[2021-07-31] MEDS: Z GUARD REMEDY 2 OZ OINT TP PRN (09:45)
[2021-07-31] MEDS: CLOTRIMAZOLE 1% 15 GM TUBE TP SCH ×4 (09:46→17:00)
[2021-07-31] MEDS: Z GUARD REMEDY 2 OZ OINT TP SCH (09:47)
[2021-07-31] MEDS: ENOXAPARIN SODIUM 80 MG/0.8 ML DISP.SYRIN SQ SCH ×2 (09:57→21:28)
[2021-07-31] MEDS: PROSOURCE / PROSTAT (PYXIS) 30 ML UDC PO SCH (09:58)
[2021-07-31] MEDS: MUPIROCIN OINT 2% 22 GM TUBE NS SCH ×2 (09:59→21:26)
[2021-07-31] MEDS: VANCOMYCIN 1 GM in IV D5W 250 ML IV SCH (15:32)
--- NOTE | 2021-07-31 19:30 | NUR ---
REPAIRER ART OBJECTS RCD PT WITH SBP IN THE 80s WITH LEVOPHED AT 0.1 MCG/KG/MIN INCREASED TO 0.2 MCG/KG/MIN FOR BP 81/49.
--- NOTE | 2021-07-31 20:00 | NUR ---
EXPLOSIVE ORDNANCE DISPOSAL SPECIALIST TUBE FEEDING ON HOLD D/T HIGH RESIDUAL DURING DAYSHIFT; RESIDUL AT THIS TIME 80 ML/HR.
[2021-07-31] MEDS: INSULIN GLARGINE, 100 UNIT/ML CARTRIDGE SQ SCH (22:00)
[2021-08-01] VITALS (47 sets, daily range): BP systolic 68–137; BP diastolic 36–76
[2021-08-01] MEDS: BLOOD SUGAR DIAGNOSTIC 1 EACH STRIP IN SCH ×5 (00:01→23:14)
[2021-08-01] MEDS: INSULIN REGULAR, HUMAN 100 UNIT/ML 3 ML VIAL SQ PRN ×5 (00:09→23:22)
--- NOTE | 2021-08-01 02:00 | NUR ---
SENIOR CISCO NETWORK ENGINEER RESIDUAL 200 ML; 250 ML WATER FLUSH GIVEN AT MIDNIGHT. CONTINUE TO HOLD TUBE FEEDING PER ORDER.
[2021-08-01 04:28] LABS: BASOPHILS # (AUTO) 0.1 K/uL (0.0-0.2); BASOPHILS % (AUTO) 0.7 % (0.0-2.0); EOSINOPHILS % (AUTO) 1.9 % (0.0-6.0); HEMATOCRIT 34 % (39-51); HEMOGLOBIN 11.4 g/dL (13.5-17.5); LYMPHOCYTES # (AUTO) 2.2 K/uL (0.8-4.8); LYMPHOCYTES % (AUTO) 12.3 % (20.0-44.0); MEAN CORPUSCULAR HGB CONC 34 g/dl (31.0-36.0); MEAN CORPUSCULAR VOLUME 89 fL (80-96); MONOCYTES # (AUTO) 0.5 K/uL (0.1-1.30); MONOCYTES % (AUTO) 2.9 % (2.0-12.0); NEUTROPHILS # (AUTO) 14.5 K/uL (1.8-8.9); NEUTROPHILS % (AUTO) 82.2 % (43.0-81.0); PLATELET COUNT (AUTO) 237 K/uL (150-450); RED BLOOD CELL COUNT(AUTO) 3.81 MIL/uL (4.5-6.0); WHITE BLOOD COUNT (AUTO) 17.6 K/uL (4.3-11.0)
[2021-08-01] MEDS: PROPOFOL 100 ML IV PRN ×4 (04:30→21:47)
[2021-08-01] MEDS: NOREPINEPHRINE 8 MG in IV NS 0.9% 242 ML IV PRN ×3 (04:30→21:49)
[2021-08-01 04:40] LABS: CALCIUM, SERUM 6.7 mg/dL (8.5-10.1); CREATININE 2.3 mg/dL (0.6-1.3); MAGNESIUM 1.9 mg/dL (1.8-2.4); PHOSPHORUS 4.4 mg/dL (2.5-4.9); POTASSIUM 3.5 mmol/L (3.5-5.1)
--- NOTE | 2021-08-01 06:00 | NUR ---
HOOP RIVETING MACHINE OPERATOR HELPER PT REMAINS NPO WITH RESIDUAL 200 ML.
--- NOTE | 2021-08-01 07:30 | NUR ---
RN Opening notes Patient received sedated on mechanical vent settings portia well. On propofol running 30 mcg/kg/min. Levo running at 0.2 mcg with bp readings portia well and 1/2 n/s @ 75 cc/hour to right upper arm picc line. Per report patient's t ube feedings have been on hold due to high residuals. Patient's hob kept elevated. Louis cath intact and hanging to gravity with clear yellow urine. Will continue to monitor. Bed is in lowest and locked position.
--- NOTE | 2021-08-01 07:40 | NUR ---
RT PATIENT REC'D ORALLY INTUBATED ON [facility] VENT WITH ORDERED SETTINGS LAYLA WELL. ALARMS CHECKED + AUDIBLE. VIVI BAG AT HOB. Addendum: 08/01/21 at 1507 by THAIS KINSEY RT Amended: Links added.
[2021-08-01] MEDS: MULTIVIT W/MINERALS 1 TAB TABLET PO SCH ×2 (09:00→09:26)
[2021-08-01] MEDS: CLOTRIMAZOLE 1% 15 GM TUBE TP SCH ×4 (09:00→17:12)
[2021-08-01] MEDS: DOCUSATE SODIUM 100 MG CAPSULE PO SCH ×2 (09:00→09:26)
[2021-08-01] MEDS: PROSOURCE / PROSTAT (PYXIS) 30 ML UDC PO SCH ×2 (09:00→09:40)
[2021-08-01] MEDS: ASCORBIC ACID 500 MG TABLET PO SCH ×2 (09:00→09:26)
[2021-08-01] MEDS: MEROPENEM 500 MG in IV NS 0.9% 50 ML IV SCH ×2 (09:26→19:45)
[2021-08-01] MEDS: MUPIROCIN OINT 2% 22 GM TUBE NS SCH ×2 (09:26→21:11)
[2021-08-01] MEDS: Z GUARD REMEDY 2 OZ OINT TP SCH (09:27)
--- NOTE | 2021-08-01 09:30 | NUR ---
Patient residual noted to be 800 cc with no feeding running. Informed Dr Palencia and received order for Reglan 10 mg iv bid. Order noted and carried out.
[2021-08-01] MEDS: ENOXAPARIN SODIUM 80 MG/0.8 ML DISP.SYRIN SQ SCH ×2 (09:40→21:10)
[2021-08-01] MEDS: METOCLOPRAMIDE HCL 10 MG/2 ML VIAL IV SCH ×2 (10:46→17:18)
[2021-08-01] MEDS: IV 1/2NS 1000 ML 1,000 ML IV PRN (12:10)
[2021-08-01] MEDS: VANCOMYCIN 1 GM in IV D5W 250 ML IV SCH (16:10)
--- NOTE | 2021-08-01 19:10 | NUR ---
RN CLOSING NOTES Patient received sedated on mechanical vent settings portia well. with fi 02 of 30 %, ac 16, TV of 500 and peep of 0. On propofol running 30 mcg/kg/min. Levo running at 0.2 mcg with bp readings WNL, portia well and 1/2 n/s @ 75 cc/hour to right upper arm picc line. patient's t ube feedings have been on hold due to high residuals with latest being 700 cc.Patient's hob kept elevated. Louis cath intact and hanging to gravity with clear yellow urine. Will continue to monitor. Bed is in lowest and locked position. Endorsed to next shift to monitor.
--- NOTE | 2021-08-01 20:00 | NUR ---
CORPORATE LAW SPECIALIST NOTE RECEIVED PT IN BED SEDATED. ETT TUBE INTACT AND PATENT. PT TOLERATING VENT SETTINGS WELL. NO DISTRESS OR DISCOMFORT NOTED. NO S/S OF PAIN NOTED. ON TELE MONITOR SR WITH BBB HR 92. F/C INTACT AND PATENT DRAINING YOLANDA COLOR URINE. WOUND DRESSING ON LT LOWER LEG I/C/D. JAVAN PICC LINE INTACT AND PATENT INFUSING LEVO 0.2 MCG AND PROPOFOL INFUSING 30 MCG AND 1/2 NS INFUSING AT 75 ML/HR, NO S/S OF INFILTRATION NOTED. REPOSITION HIM FOR SKIN MANAGEMENT. SIDE RAILS UP X 2 AND CALL LIGHT WITHIN REACH. CONTINUE TO MONITOR HIM.
--- NOTE | 2021-08-01 20:10 | NUR ---
SECURITY SOLUTIONS ARCHITECT NOTE GT INTACT AND PATENT REMAIN RESIDUAL 40 ML. PER DAY SHIFT NURSE PT HAS ALMOST 800 ML RESIDUAL. CONTINUE TO MONITOR HIM.
[2021-08-01] MEDS: INSULIN GLARGINE, 100 UNIT/ML CARTRIDGE SQ SCH ×2 (22:00→23:16)
[2021-08-01] MEDS: GLUCERNA 1.2 1,000 ML BOTTLE NG PRN (22:36)
--- NOTE | 2021-08-01 22:37 | NUR ---
SPLITTER OPERATOR NOTE RESIDUAL 0 ML NOTED. RESUMED GTF GLUCERNA 1/2 BREANNE AT 20 ML/HR Addendum: 08/01/21 at 2257 by DULCE HOLBROOK RN RESIDUAL REMAIN 60 ML. 0 ML WRITTEN IN ERROR. CONTINUE TO MONITOR.
--- NOTE | 2021-08-01 23:02 | NUR ---
WIRE WHEELER NOTE PT BS 144 HELD INSULIN COVERAGE PT HAS NO GTF FOR 5 HRS DUE TO HIGH RESIDUAL. CONTINUE TO MONITOR. Addendum: 08/01/21 at 2319 by DULCE HOLBROOK RN LANTUS 10 UNITS GIVEN. GTF STARTED.
[2021-08-02] VITALS (70 sets, daily range): BP systolic 66–142; BP diastolic 35–86
[2021-08-02] MEDS: IV 1/2NS 1000 ML 1,000 ML IV PRN ×2 (01:35→16:05)
[2021-08-02] MEDS: PROPOFOL 100 ML IV PRN ×4 (03:46→23:49)
[2021-08-02 04:26] LABS: BASOPHILS % (AUTO) 0.3 % (0.0-2.0); EOSINOPHILS % (AUTO) 1.5 % (0.0-6.0); HEMATOCRIT 31 % (39-51); HEMOGLOBIN 10.7 g/dL (13.5-17.5); LYMPHOCYTES # (AUTO) 1.7 K/uL (0.8-4.8); LYMPHOCYTES % (AUTO) 10.8 % (20.0-44.0); MEAN CORPUSCULAR HGB CONC 34 g/dl (31.0-36.0); MEAN CORPUSCULAR VOLUME 88 fL (80-96); MONOCYTES # (AUTO) 0.6 K/uL (0.1-1.30); NEUTROPHILS % (AUTO) 83.4 % (43.0-81.0); PLATELET COUNT (AUTO) 248 K/uL (150-450); RED BLOOD CELL COUNT(AUTO) 3.55 MIL/uL (4.5-6.0); WHITE BLOOD COUNT (AUTO) 15.6 K/uL (4.3-11.0)
[2021-08-02 04:48] LABS: CALCIUM, SERUM 6.9 mg/dL (8.5-10.1); CREATININE 3.1 mg/dL (0.6-1.3); MAGNESIUM 1.9 mg/dL (1.8-2.4); PHOSPHORUS 6.8 mg/dL (2.5-4.9); POTASSIUM 3.9 mmol/L (3.5-5.1)
[2021-08-02] MEDS: BLOOD SUGAR DIAGNOSTIC 1 EACH STRIP IN SCH ×3 (05:27→17:59)
[2021-08-02] MEDS: NOREPINEPHRINE 8 MG in IV NS 0.9% 242 ML IV PRN ×2 (06:30→20:51)
--- NOTE | 2021-08-02 06:51 | NUR ---
RISK MANAGEMENT ANALYST NOTE PT IN BED SEDATED. NO DISTRESS OR DISCOMFORT NOTED. NO S/S OF PAIN NOTED. TOLERATING VENT SETTINGS WELL. IVF INFUSING WELL. ALSO PT ON MACIE AND PROPOFOL VSS. ALL NEEDS ATTENDED. KEPT HIM DRY AND CLEAN. F/C INACT AND PATENT PT HAS LOW OUTPUT FOR THE SHIFT, INFORMED DANTE FRENCH NP, WAIITING FOR HIS MESSAGE BACK. REPOSITON HIM Q2H, ALL NEEDS ATTENDED. VSS. WILL ENODROSE TO DAY SHIFT NURE FOR CONTINJE TO CARE.
--- NOTE | 2021-08-02 06:55 | NUR ---
CHECK OUT CLERK NOTE GTF INFUSING AT 30 ML.HR, RESIDUAL 70 ML
--- NOTE | 2021-08-02 07:15 | NUR ---
MORTGAGE SERVICING SPECIALIST NOTES RECEIVED PT IN BED SEDATED ON DIPRIVAN @30MCG/KG/MIN. ETT TUBE IN PLACE, TOLERATING VENT SETTINGS WELL. ON TELE MONITOR SR WITH BBB. MERCHANT CATH IN PLACE DRAINING YOLANDA COLORED URINE. JAVAN PICC LINE INTACT AND PATENT. LEVO @0.2 MCG/KG/MIN AND IVF 1/2 NS @75 ML/HR. NO DISTRESS OR ANY DISCOMFORT NOTED. NO S/S OF PAIN. SAFETY MEASURES IN PLACE. BED LOCKED AND IN LOWEST POSITION WITH SIDE RAILS UP X3. CALL LIGHT WITHIN REACH. WILL CONTINUE TO MONITOR.
[2021-08-02] MEDS: MEROPENEM 500 MG in IV NS 0.9% 50 ML IV SCH ×2 (08:12→19:48)
[2021-08-02] MEDS: METOCLOPRAMIDE HCL 10 MG/2 ML VIAL IV SCH ×2 (09:15→17:31)
[2021-08-02] MEDS: DOCUSATE SODIUM 100 MG CAPSULE PO SCH (09:15)
[2021-08-02] MEDS: CLOTRIMAZOLE 1% 15 GM TUBE TP SCH ×4 (09:15→17:05)
[2021-08-02] MEDS: ASCORBIC ACID 500 MG TABLET PO SCH (09:15)
[2021-08-02] MEDS: Z GUARD REMEDY 2 OZ OINT TP SCH (09:16)
[2021-08-02] MEDS: MUPIROCIN OINT 2% 22 GM TUBE NS SCH ×2 (09:16→21:36)
[2021-08-02] MEDS: ENOXAPARIN SODIUM 80 MG/0.8 ML DISP.SYRIN SQ SCH ×2 (09:17→21:37)
[2021-08-02] MEDS: PROSOURCE / PROSTAT (PYXIS) 30 ML UDC PO SCH (09:20)
[2021-08-02] MEDS: MULTIVIT W/MINERALS 1 TAB TABLET PO SCH (09:20)
[2021-08-02] MEDS: IV NS 0.9% 1,000 ML IV PRN ×2 (09:40→13:53)
[2021-08-02] MEDS: INSULIN REGULAR, HUMAN 100 UNIT/ML 3 ML VIAL SQ PRN ×2 (12:00→18:00)
--- NOTE | 2021-08-02 12:00 | NUR ---
RN NOTES BS OF 114, NO INSULIN COVERAGE.
[2021-08-02] MEDS: VANCOMYCIN 1 GM in IV D5W 250 ML IV SCH (15:00)
--- NOTE | 2021-08-02 15:41 | NUR ---
RN NOTES VANCO TROUGH OF 23, HOLD VANCO FOR 1500.
--- NOTE | 2021-08-02 18:00 | NUR ---
RN NOTES BS OF 101, NO INSULIN COVERAGE.
--- NOTE | 2021-08-02 19:15 | NUR ---
MILL TENDER WASHING NOTES PT IN BED SEDATED ON DIPRIVAN @30MCG/KG/MIN. ETT TUBE IN PLACE, TOLERATING VENT SETTINGS WELL. ON TELE MONITOR SR WITH BBB. MERCHANT CATH IN PLACE DRAINING YOLANDA COLORED URINE. JAVAN PICC LINE INTACT AND PATENT. LEVO @0.1 MCG/KG/MIN AND IVF 1/2 NS @75 ML/HR. ALL DUE MEDS GIVEN. KEPT CLEAN AND COMFORTABLE. 350ML RESIDUAL, FEEDING ON HOLD. SAFETY MEASURES IN PLACE. BED LOCKED AND IN LOWEST POSITION WITH SIDE RAILS UP X3. CALL LIGHT WITHIN REACH. ENDORSED TO NIGHT RN FOR DENNIS.
--- NOTE | 2021-08-02 19:45 | NUR ---
ICU/CLARITY SPECIALISTS RECIEVED REPORT FROM DAY SHIFT NURSE. SEE FLOWSHEET FOR ASSESSMENT, THERE ARE MANY SKIN ISSUES THAT ARE ADDRESSED ON THE FLOWSHEET, ALONG WITH INTERVENTIONS TO EACH. THERE ARE IV'S WHICH ARE ADDRESSED ON THE IV SPREAD SHEET. PT WAS TURNED AND REPOSITIONED FOR COMFORT AND CARE. WILL CONTINUE TO MONITOR THIS PT. NO ACUTE DISTRESS SEEN AT THIS TIME.
--- NOTE | 2021-08-02 21:45 | NUR ---
ICU/IMMIGRATION MANAGER PT WAS GIVEN ORAL CARE ALONG WITH PM CARE. PT REMAINS ON CURRENT VENT SETTINGS WITH SATURATION AT 98-100%. PT WAS TURNED AND REPOSITIONED FOR COMFORT AND CARE. WILL CONTINUE TO MONITOR THIS PT. NO ACUTE DISTRESS SEEN AT THIS TIME.
--- NOTE | 2021-08-02 22:30 | NUR ---
ICU/MANAGER CONTRACT PT'S RESIDUALS FROM G/TUBE WAS 700ML. PT HAS NOT BEEN GETTING FEEDING SINCE START OF SHIFT AND DIDN'T GET THE FREE WATER FLUSH OF 250ML. CALLED THE MOTORBOAT MECHANIC INBOARD ARLEN FRENCH FOR THE FREE WATER FLUSHES TO BE DISCONTINUED DUE TO THE NA BEING CORRECTED SINCE 07/31, PLUS TODAY NA WAS 139, THIS HAS BEEN CORRECTED AND REQUIRED TO BE ADDRESSED BEFORE POSSIBLE ASPIRATION. ALSO INCREASED REGLAN 10MG FROM BID TO EVERY 6 HRS. WILL CONTINUE TO MONITOR THIS PT.
[2021-08-03] VITALS (72 sets, daily range): BP systolic 87–124; BP diastolic 46–75
--- NOTE | 2021-08-03 00:07 | NUR ---
RECEIVED PT INTUBATED 7.5 ETT SECURED AT 25CM LIP LINE. NO RESP DISTRESS. PT TOLERATING VENT SETTINGS. SX'D MODERATE AMT OF RED SECRETIONS RN NOTIFIED. VENT ALARMS SET AND AUDIBLE. ETT CUFF CHECKED. VENT PLUGGED INTO RED OUTLET. CONTINUE TO MONITOR. Addendum: 08/03/21 at 0010 by JIMMY MARES RT Amended: Links added.
[2021-08-03] MEDS: METOCLOPRAMIDE HCL 10 MG/2 ML VIAL IV SCH ×5 (00:18→23:46)
[2021-08-03] MEDS: BLOOD SUGAR DIAGNOSTIC 1 EACH STRIP IN SCH ×5 (00:21→23:42)
--- NOTE | 2021-08-03 00:30 | NUR ---
ICU/LABORATORY TECHNICAL SPECIALIST RESIDUALS FROM G/TUBE CONTINUE TO BE ELEVATED AT 650. G/TUBE FEEDING REMAINS OFF. PT RECIEVED REGLAN AT MIDNIGHT. WILL CONTINUE TO CHECK THE G/TUBE RESIDUALS. MIDNIGHT BLOOD SUGAR CHECK IS 85. WILL ALSO MONITOR THESE BLOOD SUGAR CHECKS.
--- NOTE | 2021-08-03 03:00 | NUR ---
ICU/MACHINIST SUPERVISOR OUTSIDE PT WAS GIVEN ORAL CARE ALONG WITH AM CARE. PT REMAINS ON CURRENT VENT SETTINGS WITH SATURATION AT 98-100%. PT WAS TURNED AND REPOSITIONED FOR COMFORT AND CARE. WILL CONTINUE TO MONITOR THIS PT. NO ACUTE DISTRESS SEEN AT THIS TIME.
[2021-08-03 04:30] LABS: BASOPHILS # (AUTO) 0.1 K/uL (0.0-0.2); BASOPHILS % (AUTO) 0.5 % (0.0-2.0); EOSINOPHILS % (AUTO) 1.8 % (0.0-6.0); HEMATOCRIT 29 % (39-51); HEMOGLOBIN 10.1 g/dL (13.5-17.5); LYMPHOCYTES # (AUTO) 1.3 K/uL (0.8-4.8); LYMPHOCYTES % (AUTO) 8.7 % (20.0-44.0); MEAN CORPUSCULAR HGB CONC 35 g/dl (31.0-36.0); MEAN CORPUSCULAR VOLUME 88 fL (80-96); MONOCYTES # (AUTO) 0.5 K/uL (0.1-1.30); MONOCYTES % (AUTO) 3.3 % (2.0-12.0); NEUTROPHILS # (AUTO) 12.8 K/uL (1.8-8.9); NEUTROPHILS % (AUTO) 85.7 % (43.0-81.0); PLATELET COUNT (AUTO) 278 K/uL (150-450); RED BLOOD CELL COUNT(AUTO) 3.35 MIL/uL (4.5-6.0); WHITE BLOOD COUNT (AUTO) 14.9 K/uL (4.3-11.0)
[2021-08-03] MEDS: PROPOFOL 100 ML IV PRN ×3 (04:36→23:19)
[2021-08-03 04:39] LABS: CALCIUM, SERUM 6.7 mg/dL (8.5-10.1); CREATININE 3.6 mg/dL (0.6-1.3); POTASSIUM 3.9 mmol/L (3.5-5.1)
--- NOTE | 2021-08-03 05:15 | NUR ---
ICU/PLATEN PRESS FEEDER RESIDUALS FROM G/TUBE CONTINUE TO BE ELEVATED AT 500. G/TUBE FEEDING REMAINS OFF. PT RECIEVED REGLAN AT SECOND DOSE OF REGLAN OF Q 6 HRS. WILL CONTINUE TO CHECK THE G/TUBE RESIDUALS. MORNING BLOOD SUGAR CHECK IS 80. WILL ALSO MONITOR THESE BLOOD SUGAR CHECKS.
[2021-08-03] MEDS: IV 1/2NS 1000 ML 1,000 ML IV PRN (06:05)
--- NOTE | 2021-08-03 07:00 | NUR ---
RN NOTE RECEIVED PT ON BED, SEDATED ON DIPRIVAN @30MCG/KG/MIN. ETT TUBE IN PLACE, TOLERATING VENT SETTINGS WELL. ON TELE MONITOR SR WITH BBB. MERCHANT CATH IN PLACE DRAINING YOLANDA COLORED URINE. JAVAN PICC LINE INTACT AND PATENT. LEVO @0.1 MCG/KG/MIN AND IVF 1/2 NS @75 ML/HR. SR x3 , TF ON HOLD DUE TO HIGH RESIDUAL , CONTINUE TO MONITOR , KEPT CLEAN AND COMFORTABLE. SAFETY MEASURES IN PLACE. BED LOCKED AND IN LOWEST POSITION, CALL LIGHT WITHIN EASY REACH. WILL CONTINUE TO MONITOR .
[2021-08-03] MEDS: MEROPENEM 500 MG in IV NS 0.9% 50 ML IV SCH ×2 (08:17→20:27)
[2021-08-03] MEDS: ENOXAPARIN SODIUM 80 MG/0.8 ML DISP.SYRIN SQ SCH ×2 (08:18→20:40)
[2021-08-03] MEDS: PROSOURCE / PROSTAT (PYXIS) 30 ML UDC PO SCH (08:31)
[2021-08-03] MEDS: MULTIVIT W/MINERALS 1 TAB TABLET PO SCH (08:31)
[2021-08-03] MEDS: ASCORBIC ACID 500 MG TABLET PO SCH (08:31)
[2021-08-03] MEDS: DOCUSATE SODIUM 100 MG CAPSULE PO SCH (08:31)
[2021-08-03] MEDS: MUPIROCIN OINT 2% 22 GM TUBE NS SCH ×2 (08:32→20:46)
[2021-08-03] MEDS: CLOTRIMAZOLE 1% 15 GM TUBE TP SCH ×3 (08:33→16:31)
[2021-08-03] MEDS: Z GUARD REMEDY 2 OZ OINT TP SCH (08:34)
[2021-08-03] MEDS ORDERED: LORAZEPAM INJ 2 MG/ML VIAL IVP PRN (10:30)
--- NOTE | 2021-08-03 14:00 | NUR ---
RN NOTES DISIMPACTION DONE PER MD ORDER , ABOUT TWO LBS OF DARK ,HARD STOOL OUT OF RECTUM .
[2021-08-03] MEDS: NOREPINEPHRINE 8 MG in IV NS 0.9% 242 ML IV PRN (14:32)
[2021-08-03] MEDS: LACTULOSE 10 G/15 ML UDC (PYXIS) GT SCH (16:30)
--- NOTE | 2021-08-03 18:00 | NUR ---
RN NOTES PT REMAINS INTUBATED AND SEDATED , ON DIPRIVAN AT 20MCG/KG/MIN , ON LEVO FOR BP SUPPORT AT .08 MCG/KG/MIN . ON TELE SR HR IN 80'S , TF STILL ON HOLD FOR HIGH RESIDUAL , NO SIGNFICANT CHANGES NOTED ON THIS SHIFT , SR UP x3, BED LOCKED AND IN LOWEST POSITION, WILL ENDORSE TO GLUED WOOD TESTER NURSE FOR CONTINUITY OF CARE.
[2021-08-03 19:30] LABS: CREATININE, URINE 41.6 MG/DL (30.0-125.0)
[2021-08-03 19:35] LABS: BILIRUBIN,URINE NEGATIVE (NEGATIVE); COLOR,URINE DARK YELLOW (YELLOW); LEUKOCYTE ESTERASE ,URINE TRACE (NEGATIVE); NITRITE, URINE NEGATIVE (NEGATIVE); PH,URINE 5.5 (5.0-8.0); PROTEIN,URINE NEGATIVE (NEGATIVE); UGLUCOSE NEGATIVE (NEGATIVE)
[2021-08-03 19:46] LABS: BACTERIA,URINE RARE /HPF (None Seen); RBC,URINE 21-50 /HPF (0-2); SQUAMOUS EPITHELIAL CELL,UR 0-2 /HPF (None Seen); YEAST,URINE Moderate /HPF (None Seen)
[2021-08-03] MEDS ORDERED: DEXTROSE 50%-WATER 50 ML DISP.SYRIN IVP STA (20:07)
--- NOTE | 2021-08-03 20:10 | NUR ---
RN NOTE RECEIVED PT INTUBATED ON VENT. NOT IN ANY DISTRESS. SEDATED ON DIPRIVAN AT 20 MCG/KG/MIN. PT ALSO ON LEVOPHED AT 0.08MCG/KG/MIN. ON 10/29 NS AT 75ML/HR. PICC LINE PATENT AND INTACT. CVP READING AT 1. NOTED WITH GASTRIC RESIDUALS OF >600 LIGHT BROWN IN COLOR. CHECKED FSBS AT 61. NOTIFIED PEARL PELLER TENTMAKER FRENCH. WITH NEW ORDERS. CHARGE NURSE MADE AWARE.
[2021-08-03] MEDS: IV D5/0.45 NACL 1,000 ML IV PRN (20:17)
--- NOTE | 2021-08-03 20:30 | NUR ---
RN NOTE NEW ORDER OF D51/2 NS IV AT 75ML/HR STARTED AND D5 IVP GIVEN ORDERED. WILL CONTINUE TO MONITOR.
[2021-08-03] MEDS: INSULIN GLARGINE, 100 UNIT/ML CARTRIDGE SQ SCH (22:00)
[2021-08-03] MEDS: IV NS 0.9% 500 ML BAG IV PRN (22:01)
--- NOTE | 2021-08-03 22:51 | NUR ---
RN NOTE FSBS 96, HELD LANTUS PER PROTOCOL.
[2021-08-03] MEDS: INSULIN REGULAR, HUMAN 100 UNIT/ML 3 ML VIAL SQ PRN (23:43)
[2021-08-04] VITALS (96 sets, daily range): BP systolic 80–124; BP diastolic 47–75
--- NOTE | 2021-08-04 00:02 | NUR ---
RN NOTE PT STILL NOTED WITH HIGH RESIDUALS >600ML. GT FEEDING KEPT ON HOLD. REGLAN IVP GIVEN ORDERED.
[2021-08-04] MEDS ORDERED: VANCOMYCIN 1 GM in IV D5W 250ml IV SCH (03:00)
--- NOTE | 2021-08-04 04:15 | NUR ---
RN NOTE NOTED PT WITH RECTAL BLEEDING, BRIGHT RED. NO DISTRESS NOTED. NOTIFIED DAIRY EQUIPMENT REPAIRER GILLIAN. ORDERED TO HOLD LOVENOX. AWAITING FOR CBC RESULTS.
[2021-08-04 04:21] LABS: BASOPHILS # (AUTO) 0.3 K/uL (0.0-0.2); BASOPHILS % (AUTO) 2.9 % (0.0-2.0); EOSINOPHILS % (AUTO) 2.7 % (0.0-6.0); HEMATOCRIT 28 % (39-51); HEMOGLOBIN 9.6 g/dL (13.5-17.5); LYMPHOCYTES # (AUTO) 0.9 K/uL (0.8-4.8); MEAN CORPUSCULAR HGB CONC 34 g/dl (31.0-36.0); MEAN CORPUSCULAR VOLUME 88 fL (80-96); MONOCYTES # (AUTO) 0.4 K/uL (0.1-1.30); MONOCYTES % (AUTO) 3.8 % (2.0-12.0); NEUTROPHILS # (AUTO) 7.5 K/uL (1.8-8.9); NEUTROPHILS % (AUTO) 80.6 % (43.0-81.0); PLATELET COUNT (AUTO) 285 K/uL (150-450); RED BLOOD CELL COUNT(AUTO) 3.17 MIL/uL (4.5-6.0); WHITE BLOOD COUNT (AUTO) 9.3 K/uL (4.3-11.0)
[2021-08-04 04:32] LABS: CALCIUM, SERUM 6.5 mg/dL (8.5-10.1); CREATININE 4.2 mg/dL (0.6-1.3)
[2021-08-04 04:56] LABS: PHOSPHORUS 8.4 mg/dL (2.5-4.9)
[2021-08-04] MEDS: INSULIN REGULAR, HUMAN 100 UNIT/ML 3 ML VIAL SQ PRN ×3 (06:14→23:35)
[2021-08-04] MEDS: BLOOD SUGAR DIAGNOSTIC 1 EACH STRIP IN SCH ×4 (06:14→23:34)
[2021-08-04] MEDS: METOCLOPRAMIDE HCL 10 MG/2 ML VIAL IV SCH ×3 (06:18→17:13)
--- NOTE | 2021-08-04 06:52 | NUR ---
RN NOTE PT REMAINS SEDATED WITH PROPOFOL AT 20MCG/KG/MIN. WITH EPISODES OF OPENING EYES, NO RESPIRATORY DISTRESS NOTED. TOLERATING VENT SETTING. PT WITH STILL HIGH GASTRIC RESIDUALS, PILE DRIVER ENGINEER FRENCH NOTIFIED, GTUBE CONNECTED TO LOW INTERMITTENT SUCTION PER ORDER, WITH 1000ML RESIDUALS. HOB ELEVATED. PT FSBS AT 95, CONTINUE ON D5 1/2 NS AT 75ML/HR. LEVO ON 0.06MCG/KG/MIN. MERCHANT CATH IN PLACE WITH 200 ML URINE OUTPUT. STILL NOTED WITH MINIMAL RECTAL BLEEDING. PT WITH PHOSPHORUS 8.4. PILE DRIVER ENGINEER FRENCH NOTIFIED, NO ORDERS WERE MADE. ALL SAFETY MAINTAINED. WILL ENDORSE TO NEXT SHIFT NURSE.
[2021-08-04] MEDS: PROPOFOL 100 ML IV PRN (07:00)
[2021-08-04] MEDS: MEROPENEM 500 MG in IV NS 0.9% 50 ML IV SCH ×2 (07:47→20:07)
--- NOTE | 2021-08-04 08:00 | NUR ---
RN NOTES RECEIVED PATIENT ETT/VENT TOLERATING SETTING WELL, FIO2-30, PEEP 0. NO ACUTE RESPIRATORY DISTRESS. GET TO ORDER VIA Dr GARDNER CHANGE ATIVAN BID SCHEDULED, STOP SEDATION DIPRIVAN 1300, START FEEDING 10CC/HR. ORDER TAKEN AND CARRIED OUT. DUE MEDICATION ADMINISTERED VIA GT. PATIENT SEDATED WITH DIPRIVAN 20MCG/KG/HR, LEVOPHED 0.06MCG/KG/HR, AND D51/2 NS @75 ML/HR ON RIGHT PICC LINE INTACT. ASSIST TURN AND REPOSTION Q 2 HR. MERCHANT HAS POOR OUTPUT. REGARDING NIGHT NURSE PATIENT BLEEDING RECTALLY, DR GARDNER NOTIFIED . ACCORDING LAB RESULT PER DR GARDNER OK TO ADMINISTERED LOVENOX. WILL FOLLOW UP.
[2021-08-04] MEDS: ASCORBIC ACID 500 MG TABLET PO SCH (08:33)
[2021-08-04] MEDS: DOCUSATE SODIUM 100 MG CAPSULE PO SCH (08:33)
[2021-08-04] MEDS: MULTIVIT W/MINERALS 1 TAB TABLET PO SCH (08:34)
[2021-08-04] MEDS: MUPIROCIN OINT 2% 22 GM TUBE NS SCH (08:34)
[2021-08-04] MEDS: Z GUARD REMEDY 2 OZ OINT TP SCH (08:35)
[2021-08-04] MEDS: CLOTRIMAZOLE 1% 15 GM TUBE TP SCH ×2 (08:35→16:38)
[2021-08-04] MEDS: PROSOURCE / PROSTAT (PYXIS) 30 ML UDC PO SCH (08:36)
[2021-08-04] MEDS: HYDROCORTISONE SOD SUCCINATE 100 MG/2 ML VIAL IV SCH ×3 (09:11→21:28)
[2021-08-04] MEDS: LORAZEPAM INJ 2 MG/ML VIAL IVP SCH ×2 (09:11→16:40)
[2021-08-04] MEDS ORDERED: DOCUSATE SODIUM LIQ 100 MG/10 ML UDC GT SCH (09:30)
[2021-08-04] MEDS: ENOXAPARIN SODIUM 80 MG/0.8 ML DISP.SYRIN SQ SCH ×2 (09:59→21:00)
[2021-08-04] MEDS: DOCUSATE SODIUM LIQ 100 MG/10 ML UDC NG SCH (10:00)
[2021-08-04] MEDS: GLUCERNA 1.2 1,000 ML BOTTLE NG PRN (10:16)
[2021-08-04] MEDS: FLUDROCORTISONE 0.1 MG TABLET PO SCH ×2 (11:50→17:13)
--- NOTE | 2021-08-04 11:52 | NUR ---
rn notes bs-123 mg/dl, running Glucerna 1.2 10cc/hr, no residual, tolerated feeding well, has BM x1 with blood on it notified Dr Eldridge, also patient bleeding from ETT tube during suctioning. Seen patient from healthcare science specialist Dr Desai patient need dialysis after dialyses cath insertion. Patient has no family, consent will sign with two MD's. due medication administered. assist turn and reposition q 2 hr.
[2021-08-04] MEDS: IV D5/0.45 NACL 1,000 ML IV PRN (12:20)
--- NOTE | 2021-08-04 13:00 | NUR ---
rn notes Stop Diprivan infusion at this time per Dr Sapp order, plan is continue ventilator support and wean as able to reassess for need for tracheostomy after the weekend, progressive renal dysfunction. Get TO order via Dr Desai insertion HD cath, get consent form. notified md patient has no family.
[2021-08-04] MEDS: NOREPINEPHRINE 8 MG in IV NS 0.9% 242 ML IV PRN (15:47)
[2021-08-04] MEDS: LACTULOSE 10 G/15 ML UDC (PYXIS) GT SCH (16:38)
--- NOTE | 2021-08-04 18:45 | NUR ---
RN NOTES BS-21 6MG/DL COVERAGE GIVEN, PM CARE DONE, SUCTION, MOUTH CARE DONE. INSERTED HD CATH ON RIGHT FEMORAL VIA JAY CESAR AT THIS TIME. PATIENT STABLE TO HAVE HD TODAY PER DNP. DIALYSIS NURSE AWARE OF. DUE MEDICATION ADMINISTERED. PATIENT OFF SEDATION. MERCHANT DRAINING DARK TEA COLOR WITH SMELL 300 ML OUTPUT. KEEP HOB ELEVATED FOR ASPIRATION PRECAUTION. INFUSING LEVOPHED 0.07 MCG/KG/HR ON RIGHT UA PICC LINE INTACT. ASSIST TURN AND REPOSTION Q 2 HR. ENDORSEE ONCOMING NURSE FOLLOW PLAN OF CARE.
--- NOTE | 2021-08-04 18:50 | NUR ---
RN NOTES PER DNP GUERRERO CESAR GET TO ORDER STAT CAROTID DUPLEX IMAGES. ORDER TAKEN AND CARRIED OUT.
--- NOTE | 2021-08-04 20:11 | NUR ---
TEA AND SPICE SUPERVISOR 2 L NS GIVEN TO HD NURSE
--- NOTE | 2021-08-04 22:50 | NUR ---
MULTI SPINDLE OPERATOR HD COMPLETED; NOTED HD CATH BLEEDING AT THIS TIME.
[2021-08-04] MEDS: INSULIN GLARGINE, 100 UNIT/ML CARTRIDGE SQ SCH (23:34)
[2021-08-05] VITALS (80 sets, daily range): BP systolic 85–121; BP diastolic 51–83
[2021-08-05] MEDS: FLUDROCORTISONE 0.1 MG TABLET PO SCH ×5 (00:35→23:55)
[2021-08-05] MEDS: METOCLOPRAMIDE HCL 10 MG/2 ML VIAL IV SCH ×5 (00:35→23:55)
[2021-08-05] MEDS: IV NS 0.9% 500 ML BAG IV PRN (03:45)
[2021-08-05] MEDS: IV D5/0.45 NACL 1,000 ML IV PRN (03:47)
[2021-08-05] MEDS: HYDROCORTISONE SOD SUCCINATE 100 MG/2 ML VIAL IV SCH ×3 (05:40→20:48)
[2021-08-05 05:50] LABS: BASOPHILS # (AUTO) 0.1 K/uL (0.0-0.2); BASOPHILS % (AUTO) 0.5 % (0.0-2.0); EOSINOPHILS % (AUTO) 0.4 % (0.0-6.0); HEMATOCRIT 28 % (39-51); HEMOGLOBIN 9.5 g/dL (13.5-17.5); LYMPHOCYTES # (AUTO) 0.9 K/uL (0.8-4.8); LYMPHOCYTES % (AUTO) 9.3 % (20.0-44.0); MEAN CORPUSCULAR HGB CONC 35 g/dl (31.0-36.0); MEAN CORPUSCULAR VOLUME 88 fL (80-96); MONOCYTES # (AUTO) 0.4 K/uL (0.1-1.30); MONOCYTES % (AUTO) 4.8 % (2.0-12.0); NEUTROPHILS # (AUTO) 7.9 K/uL (1.8-8.9); PLATELET COUNT (AUTO) 409 K/uL (150-450); RED BLOOD CELL COUNT(AUTO) 3.12 MIL/uL (4.5-6.0); WHITE BLOOD COUNT (AUTO) 9.3 K/uL (4.3-11.0)
[2021-08-05 06:01] LABS: CALCIUM, SERUM 6.6 mg/dL (8.5-10.1); CREATININE 3.5 mg/dL (0.6-1.3); MAGNESIUM 1.9 mg/dL (1.8-2.4); PHOSPHORUS 6.8 mg/dL (2.5-4.9); POTASSIUM 3.9 mmol/L (3.5-5.1)
[2021-08-05] MEDS: BLOOD SUGAR DIAGNOSTIC 1 EACH STRIP IN SCH ×4 (06:14→23:00)
[2021-08-05] MEDS: INSULIN REGULAR, HUMAN 100 UNIT/ML 3 ML VIAL SQ PRN ×2 (06:15→12:35)
--- NOTE | 2021-08-05 07:40 | NUR ---
RN Opening notes Patient received in bed with eyes opening to verbal and physical stimuli and Blink refelex.Patient received on mechanical vent settings TV 500, AC 16, FI02 OF 40%, PEEP OF 0 WITH 02 SAT OF 98%, portia well. Levo running at 0.06 mcg with bp readings WNL and 1/2 n/s @ 75 cc/hour to right upper arm picc line. Per report patient had bm with blood. Will monitor. Patient's hob kept elevated. Louis cath intact and hanging to gravity. Will continue to monitor. Bed is in lowest and locked position.Call light with in reach.
--- NOTE | 2021-08-05 08:00 | NUR ---
Residual noted to be 550 cc. G tube feedings held. MD Otto aware.
[2021-08-05] MEDS: DOCUSATE SODIUM 100 MG CAPSULE PO SCH (08:11)
[2021-08-05] MEDS: Z GUARD REMEDY 2 OZ OINT TP SCH (08:11)
[2021-08-05] MEDS: ENOXAPARIN SODIUM 80 MG/0.8 ML DISP.SYRIN SQ SCH ×2 (08:11→20:57)
[2021-08-05] MEDS: CLOTRIMAZOLE 1% 15 GM TUBE TP SCH ×2 (08:11→17:45)
[2021-08-05] MEDS: MEROPENEM 500 MG in IV NS 0.9% 50 ML IV SCH ×2 (08:20→20:48)
[2021-08-05] MEDS: MULTIVIT W/MINERALS 1 TAB TABLET PO SCH (08:21)
[2021-08-05] MEDS: DOCUSATE SODIUM LIQ 100 MG/10 ML UDC NG SCH (08:22)
[2021-08-05] MEDS: PROSOURCE / PROSTAT (PYXIS) 30 ML UDC PO SCH (08:22)
[2021-08-05] MEDS: ASCORBIC ACID 500 MG TABLET PO SCH (08:44)
[2021-08-05] MEDS: LORAZEPAM INJ 2 MG/ML VIAL IVP SCH ×2 (09:29→17:45)
[2021-08-05] MEDS ORDERED: VANCOMYCIN POST DIALYSIS 500MG IV PRN (10:30)
--- NOTE | 2021-08-05 13:57 | NUR ---
CARE TRANSFERRED TO ANOTHER NURSE PRISCILLA. Report given. Patient in stable condition and no s/sx of distress.
[2021-08-05] MEDS: LACTULOSE 10 G/15 ML UDC (PYXIS) GT SCH (17:00)
--- NOTE | 2021-08-05 17:40 | NUR ---
RN NOTE LACTULOSE HELD, PT HAS BLOODY BM
--- NOTE | 2021-08-05 19:30 | NUR ---
RT NOTES PT FOUND SEMI FOWLERS POSITION DISPLAYING NO S/S OF DISTRESS, FLACC = 0 AND BILATERAL RISE AND FALL OF THE CHEST ON MECH VENT. PT CONTINUES TO SHOW SIGNS OF SEDATION, SPONTANEOUS EYE OPENING, RESPONDING TO TOUCH. NEWLY PLACED MERCHANT CATH DRAINED 800 ML OF MURKY BROWN URINE. SBAR & REPORT GIVEN TO DIRECTOR EMPLOYEE SAFETY AND HEALTH NURSE. ALL QUESTIONS ANSWERED. PT TRANSFERRED IN STABLE CONDITION FOR DENNIS.
--- NOTE | 2021-08-05 19:30 | NUR ---
Per Saw hold feedings. Patient is having high residuals
--- NOTE | 2021-08-05 20:30 | NUR ---
Per Alex burger ok to give Lovenox despite some rectal bleeding.
[2021-08-05] MEDS: INSULIN GLARGINE, 100 UNIT/ML CARTRIDGE SQ SCH (23:15)
--- NOTE | 2021-08-05 23:17 | NUR ---
Per Parag Perry to give Lantus in evening. Patients feeding is currently on hold due to high residuals BS is 117.
[2021-08-06] VITALS (101 sets, daily range): BP systolic 68–124; BP diastolic 38–74
[2021-08-06] MEDS: IV D5/0.45 NACL 1,000 ML IV PRN (00:39)
[2021-08-06] MEDS ORDERED: VANCOMYCIN 1 GM in IV D5W 250ml IV SCH (03:00)
[2021-08-06] MEDS: MORPHINE SULFATE INJ 2 MG/ML DISP.SYRIN IV PRN (03:33)
[2021-08-06] MEDS ORDERED: PHENYLEPHRINE 10 MG/ML VIAL ONE (03:42)
[2021-08-06] MEDS: PHENYLEPHRINE 50 MG in IV NS 0.9% 245 ML IV PRN (03:49)
[2021-08-06] MEDS: METOCLOPRAMIDE HCL 10 MG/2 ML VIAL IV SCH ×4 (06:01→23:14)
[2021-08-06] MEDS: HYDROCORTISONE SOD SUCCINATE 100 MG/2 ML VIAL IV SCH ×3 (06:01→20:15)
[2021-08-06] MEDS: FLUDROCORTISONE 0.1 MG TABLET PO SCH ×4 (06:02→23:15)
[2021-08-06] MEDS: BLOOD SUGAR DIAGNOSTIC 1 EACH STRIP IN SCH ×4 (06:02→23:12)
[2021-08-06] MEDS: LORAZEPAM INJ 2 MG/ML VIAL IVP SCH ×2 (09:00→17:00)
[2021-08-06 09:18] LABS: BASOPHILS # (AUTO) 0.1 K/uL (0.0-0.2); BASOPHILS % (AUTO) 0.5 % (0.0-2.0); EOSINOPHILS % (AUTO) 1.9 % (0.0-6.0); HEMATOCRIT 30 % (39-51); LYMPHOCYTES # (AUTO) 1.6 K/uL (0.8-4.8); LYMPHOCYTES % (AUTO) 11.1 % (20.0-44.0); MEAN CORPUSCULAR HGB CONC 34 g/dl (31.0-36.0); MEAN CORPUSCULAR VOLUME 87 fL (80-96); MONOCYTES # (AUTO) 0.8 K/uL (0.1-1.30); MONOCYTES % (AUTO) 5.5 % (2.0-12.0); NEUTROPHILS # (AUTO) 11.6 K/uL (1.8-8.9); PLATELET COUNT (AUTO) 568 K/uL (150-450); RED BLOOD CELL COUNT(AUTO) 3.38 MIL/uL (4.5-6.0); WHITE BLOOD COUNT (AUTO) 14.3 K/uL (4.3-11.0)
[2021-08-06] MEDS: MEROPENEM 500 MG in IV NS 0.9% 50 ML IV SCH ×2 (09:36→20:15)
[2021-08-06] MEDS: IV NS 0.9% 1,000 ML IV SCH ×2 (09:37→14:30)
[2021-08-06] MEDS: MULTIVIT W/MINERALS 1 TAB TABLET PO SCH (09:37)
[2021-08-06] MEDS: ASCORBIC ACID 500 MG TABLET PO SCH (09:37)
[2021-08-06] MEDS: DOCUSATE SODIUM 100 MG CAPSULE PO SCH (09:37)
[2021-08-06] MEDS: Z GUARD REMEDY 2 OZ OINT TP PRN (09:39)
[2021-08-06] MEDS: CLOTRIMAZOLE 1% 15 GM TUBE TP SCH ×2 (09:40→19:22)
[2021-08-06] MEDS: DOCUSATE SODIUM LIQ 100 MG/10 ML UDC NG SCH (09:53)
[2021-08-06] MEDS: Z GUARD REMEDY 2 OZ OINT TP SCH (09:54)
[2021-08-06] MEDS: PROSOURCE / PROSTAT (PYXIS) 30 ML UDC PO SCH (09:55)
[2021-08-06] MEDS: ENOXAPARIN SODIUM 80 MG/0.8 ML DISP.SYRIN SQ SCH ×2 (10:02→20:19)
[2021-08-06 10:43] LABS: CREATININE 2.6 mg/dL (0.6-1.3); MAGNESIUM 1.9 mg/dL (1.8-2.4); POTASSIUM 3.4 mmol/L (3.5-5.1)
[2021-08-06] MEDS: LACTULOSE 10 G/15 ML UDC (PYXIS) GT SCH (19:21)
--- NOTE | 2021-08-06 20:00 | NUR ---
RN NOTE PATIENT IN BED OPENS EYES. [facility] TOLERATING SETTINGS WELL, O2 SAT 93%. NO SIGNS OF DISCOMFORT. SINUS TACHY 130'S ON MONITOR. HEAD OF BED ELEVATED. GTUBE RUNNING GLUCERNA 1.2 @10CC, HOWEVER RESIDUALS NOTED 600CC YELLOWISH BROWN FLUID. DANTE FRENCH MADE AWARE WITH ORDER TO PUT ON LOW INTERMITTENT SUCTION. MERCHANT CATH PATENT DRAINING 600CC TEA COLORED URINE. IV ACCESS ON JAVAN PICC RUNNING MACIE @ 0.5 MCG. NO SIGNS OF INFILTRATION. RIGHT FEM HD CATH DRESSING DRY AND INTACT. BED LOCKED AND IN LOWEST POSITION. CALL LIGHT WITHIN REACH. ALL NEEDS ANTICIPATED.
[2021-08-06] MEDS ORDERED: METOPROLOL TARTRATE INJ 5 MG/5 ML AMPUL IVP ONE ×2 (22:00→22:30)
[2021-08-06] MEDS: INSULIN GLARGINE, 100 UNIT/ML CARTRIDGE SQ SCH (22:00)
--- NOTE | 2021-08-06 22:00 | NUR ---
RN NOTE RELAYED EKG RESULT TO DANTE FRENCH. HEART RATE 150. A-FLUTTER WITH RVR. DANTE FRENCH WITH NEW ORDER FOR METOPROLOL 5MG IVP. WILL CONTINUE TO MONITOR.
[2021-08-06] MEDS: INSULIN REGULAR, HUMAN 100 UNIT/ML 3 ML VIAL SQ PRN (23:13)
--- NOTE | 2021-08-06 23:24 | NUR ---
RN NOTE FSBS 115. NO INSULIN COVERAGE GIVEN. LANTUS HELD DUE TO GT FEEDING OFF AT THIS TIME AND WITH HIGH RESIDUAL 750CC. WILL CONTINUE TO MONITOR.
[2021-08-07] VITALS (96 sets, daily range): BP systolic 58–146; BP diastolic 42–83
[2021-08-07] MEDS: PHENYLEPHRINE 50 MG in IV NS 0.9% 245 ML IV PRN ×2 (00:03→17:36)
[2021-08-07] MEDS: GLUCERNA 1.2 1,000 ML BOTTLE NG PRN (04:28)
[2021-08-07 04:53] LABS: BASOPHILS % (AUTO) 0.3 % (0.0-2.0); EOSINOPHILS % (AUTO) 0.2 % (0.0-6.0); HEMATOCRIT 28 % (39-51); HEMOGLOBIN 9.7 g/dL (13.5-17.5); LYMPHOCYTES # (AUTO) 1.6 K/uL (0.8-4.8); LYMPHOCYTES % (AUTO) 11.5 % (20.0-44.0); MEAN CORPUSCULAR HGB CONC 34 g/dl (31.0-36.0); MEAN CORPUSCULAR VOLUME 89 fL (80-96); MONOCYTES # (AUTO) 0.6 K/uL (0.1-1.30); MONOCYTES % (AUTO) 4.1 % (2.0-12.0); NEUTROPHILS # (AUTO) 11.8 K/uL (1.8-8.9); NEUTROPHILS % (AUTO) 83.9 % (43.0-81.0); PLATELET COUNT (AUTO) 548 K/uL (150-450); RED BLOOD CELL COUNT(AUTO) 3.18 MIL/uL (4.5-6.0); WHITE BLOOD COUNT (AUTO) 14.1 K/uL (4.3-11.0)
[2021-08-07 05:05] LABS: CALCIUM, SERUM 6.9 mg/dL (8.5-10.1); CREATININE 2.1 mg/dL (0.6-1.3); POTASSIUM 3.5 mmol/L (3.5-5.1)
[2021-08-07] MEDS: HYDROCORTISONE SOD SUCCINATE 100 MG/2 ML VIAL IV SCH ×3 (05:40→20:45)
[2021-08-07] MEDS: BLOOD SUGAR DIAGNOSTIC 1 EACH STRIP IN SCH ×4 (05:40→23:59)
[2021-08-07] MEDS: METOCLOPRAMIDE HCL 10 MG/2 ML VIAL IV SCH ×4 (05:40→23:58)
[2021-08-07] MEDS: FLUDROCORTISONE 0.1 MG TABLET PO SCH ×4 (05:40→23:58)
[2021-08-07] MEDS: INSULIN REGULAR, HUMAN 100 UNIT/ML 3 ML VIAL SQ PRN ×3 (05:41→17:39)
--- NOTE | 2021-08-07 06:12 | NUR ---
RT NOTE PT INTUBATED VIA 7.5 ETT @ 25 CM LIP LINE. ET TUBE SECURED AND PATENT. BILATERAL CHEST RISE NOTED. ALARMS ARE SET AND AUDIBLE. VENT IS PLUGGED INTO RED OUTLET. PT SXD W NO ADVERSE REACTIONS. NO RESP DISTRESS NOTED T/O SHIFT. Addendum: 08/07/21 at 0612 by ASHA RAYO RT Amended: Links added.
--- NOTE | 2021-08-07 07:03 | NUR ---
RN NOTE PATIENT IN BED OPENS EYES. [facility] TOLERATING SETTINGS WELL, O2 SAT 98%. SINUS RHYTHM ON THE MONITOR. HEAD OF BED ELEVATED. GTUBE RUNNING GLUCERNA 1.2 @5CC, 33CC RESIDUAL NOTED. MERCHANT CATH PATENT DRAINED 1400CC TEA COLORED URINE. IV ACCESS ON JAVAN PICC RUNNING MACIE @ 0.5 MCG. NO SIGNS OF INFILTRATION. RIGHT FEM HD CATH DRESSING DRY AND INTACT. BED LOCKED AND IN LOWEST POSITION. CALL LIGHT WITHIN REACH. ENDORSED TO AM SHIFT.
--- NOTE | 2021-08-07 07:25 | NUR ---
WOUND CARE FOLLOW UP: PT SEEN FOR RE-EVALUATION OF SACRAL DEEP TISSUE INJURY WHICH IS NOW IN EVOLUTION. RECOMMENDATIONS MADE FOR SKIN PROTECTION AND WOUND CARE. WOUND TREATMENT ORDERS UPDATED AND DISCUSSED WITH NURSING STAFF. PT NOTED TO HAVE MULTIPLE CO-MORBIDITIES INCLUDING DIABETES, RESPIRATORY FAILURE SECONDARY TO PNEUMONIA (CURRENTLY INTUBATED), PULMONARY EMBOLUS, RENAL FAILURE, HYPOTENSIVE SHOCK, THROMBOCYTOPENIA AND ANEMIA. DUE TO MULTIPLE CO-MORBIDITIES, FURTHER SKIN BREAKDOWN MAY BE UNAVOIDABLE. PT IS ON FIRST STEP CATRACHITO BARBA MD IN AGREEMENT WITH PLAN OF CARE. Addendum: 08/07/21 at 0728 by LYNETTE SAAVEDRA WNDNU Amended: Links added. Addendum: 08/07/21 at 1027 by LYNETTE SAAVEDRA WNDNU ADDITIONAL: SURGICAL CONSULT CALLED TO DR ALVARADO FOR SACRAL DEEP TISSUE INJURY IN EVOLUTION.
--- NOTE | 2021-08-07 07:30 | NUR ---
RN NOTES PT FOUND SEMI FOWLERS DISPLAYING NO S/S OF DISTRESS, FLACC = 0 AND BILATERAL RISE AND FALL ON THE MECHANICAL VENT. PT SHOWED SPONTANEOUS EYE OPENING, OFF SEDATION ORDERED. RESIDUAL IS APPROXIMATELY 80 ML. CVP WAS ZERO'D. MERCHANT CATH IS BELOW PATIENT AND DRAINING BY GRAVITY, PATIENT AND INTACT. HEMATURIA OBSERVED IN F/C TUBE. VSS, PT MAINTAIN SR ON MONITOR. RN WILL TREAT AND MONITOR THROUGHOUT SHIFT. SAFETY MEASURES IN PLACE, BED LOCKED AND IN LOWEST POSITION, SIDE RAILS UPX2, CALL LIGHT WITHIN REACH, BED ALARM ARMED.
[2021-08-07] MEDS: ASCORBIC ACID 500 MG TABLET PO SCH (08:26)
[2021-08-07] MEDS: MEROPENEM 500 MG in IV NS 0.9% 50 ML IV SCH ×2 (08:26→20:45)
[2021-08-07] MEDS: MULTIVIT W/MINERALS 1 TAB TABLET PO SCH (08:26)
[2021-08-07] MEDS: DOCUSATE SODIUM LIQ 100 MG/10 ML UDC NG SCH (08:28)
[2021-08-07] MEDS: PROSOURCE / PROSTAT (PYXIS) 30 ML UDC PO SCH (08:28)
[2021-08-07] MEDS: LORAZEPAM INJ 2 MG/ML VIAL IVP SCH ×2 (08:29→17:36)
[2021-08-07] MEDS: ENOXAPARIN SODIUM 80 MG/0.8 ML DISP.SYRIN SQ SCH ×2 (08:31→22:11)
[2021-08-07] MEDS: CLOTRIMAZOLE 1% 15 GM TUBE TP SCH ×2 (09:53→17:37)
[2021-08-07] MEDS: Z GUARD REMEDY 2 OZ OINT TP SCH (09:53)
--- NOTE | 2021-08-07 11:27 | NUR ---
MD VISIT, BUCKLE INSPECTOR VISITED PT, RECOMMENDED OFF LOADING L HEEL AND NO FURTHER TREATMENT
[2021-08-07] MEDS: FLUCONAZOLE (100 MG) 100 MG TABLET GT SCH (15:17)
[2021-08-07] MEDS: LACTULOSE 10 G/15 ML UDC (PYXIS) GT SCH (17:35)
--- NOTE | 2021-08-07 19:30 | NUR ---
RN NOTES RECEIVED PATIENT AWAKE , NOT FOLLOWING COMMAND. ORALLY INTUBATED WITH ETT 7.5 AND 25 CM AT LIP WITH VENT SETTING AC 16 TV 500 FIO2 45% NO PEEP. NO RESPIRATORY DISTRESS. NO SEDATION. PATIENT IS CALM. SATURATION WELL 98%. NSR ON MONITOR HR ON 80'S. AFEBRILE. VSS WITH NEOSYNEPHRINE RUNNING AT 0.5 MCG/KG/MIN WILL TITRATED ORDERED. IV SITE ON JAVAN PICC LINE AND RIGHT FEMORAL HD CATH INTACT, CLEAN AND DRY. GENERALIZED PITTING EDEMA +4 PRESENT . NGTF INTACT PATENTCY CHECKED WITH RESIDUAL OF 500 CC YELLOWISH AND LIGHT GREENISH COLOR OUTPUT. TURN AND REPOSITION OFFLOADED EXT WITH PILLOWS. KEPT PT CLEAN AND DRY. WILL CLOSELY MONITOR.
--- NOTE | 2021-08-07 19:30 | NUR ---
RN NOTES PT FOUND SEMI FOWLERS DISPLAYING NO S/S OF DISTRESS, FLACC = 0 AND BILATERAL RISE AND FALL ON THE MECHANICAL VENT. PT SHOWED SPONTANEOUS EYE OPENING, OFF SEDATION ORDERED THROUGHOUT SHIFT. RESIDUAL IS APPROXIMATELY 5ML. MERCHANT CATH IS BELOW PATIENT AND DRAINING BY GRAVITY, PATIENT AND INTACT. VSS, SBAR AND REPORT GIVEN TO MANAGER BOOK RN, ALL QUESTIONS ANSWERED. SAFETY MEASURES IN PLACE, BED LOCKED AND IN LOWEST POSITION, SIDE RAILS UPX2, CALL LIGHT WITHIN REACH, BED ALARM ARMED. PT ENDORSED IN STABLE CONDITION FOR DENNIS.
--- NOTE | 2021-08-07 20:14 | NUR ---
RT NOTE Pt rec'd orally intubated via ETT sz #7.5 secured at 25CM at the lipline. Pt on [facility] vent on AC mode settings as charted. Pt shows no signs of resp distress or sob. ETT is patent and secured. Pt sx'd for thick mod amt of pale yellow secretions. Alarms are set and audible. Vent plugged into red outlet. Ambu bag bedside. Will continue to monitor closely. Addendum: 08/07/21 at 2016 by TORI WORKMAN RT Amended: Links added.
--- NOTE | 2021-08-07 21:50 | NUR ---
RN NOTES INFORMED AND VERIFIED INGE FRENCH REGARDIG PATIENT LOVENOX. PER MACHINE CLOTH EXAMINER TO ADMNISTERED IT SINCE THERES NO DATE YET FOR TRACH PLACEMENT. NO BLEEDING PRESENT AT THIS TIME. GT RESIDUAL 500 CC REPORTED WELL. WILL CONTINUE TO HOLD FEEDING AND WILL CHECKED AFTER 2 HOURS.
[2021-08-07] MEDS: INSULIN GLARGINE, 100 UNIT/ML CARTRIDGE SQ SCH (22:00)
[2021-08-08] VITALS (32 sets, daily range): BP systolic 97–129; BP diastolic 52–72
[2021-08-08] MEDS: IV NS 0.9% 500 ML BAG IV PRN (00:02)
--- NOTE | 2021-08-08 00:29 | NUR ---
RN NOTES JAVAN PICC LINE DRESSING CHANGED. WITH GOOD BLOOD RETURN AND FLUSHED WELL. KEPT CLEAN AND DRY.
[2021-08-08 04:54] LABS: CREATININE 1.7 mg/dL (0.6-1.3); POTASSIUM 3.1 mmol/L (3.5-5.1)
[2021-08-08] MEDS: FLUDROCORTISONE 0.1 MG TABLET PO SCH ×3 (05:20→17:21)
[2021-08-08] MEDS: METOCLOPRAMIDE HCL 10 MG/2 ML VIAL IV SCH ×3 (05:20→17:21)
[2021-08-08] MEDS: HYDROCORTISONE SOD SUCCINATE 100 MG/2 ML VIAL IV SCH ×3 (05:20→21:26)
[2021-08-08] MEDS: BLOOD SUGAR DIAGNOSTIC 1 EACH STRIP IN SCH ×3 (06:42→17:20)
--- NOTE | 2021-08-08 07:00 | NUR ---
RN NOTES PATIENT IN STABLE CONDITION. AFEBRILE. VSS CONTINUE ON ETT ON THE SAME SETTING TOLERATED WELL. NO ACUTE RESPIRATORY DISTRESS. ALL MEDICINE TOELRATED WELL. GT RESIDUAL CONTINUIE TO CHECKED DUE TO HIGH RESIDUAL NOTED. KEPT GTF AT 15 CC/HR KEPT PT CLEAN AND COMFORTABLE IN BED. OFFLOADED EXT WITH PILLOWS. CONTINUE WITH POC.
--- NOTE | 2021-08-08 07:30 | NUR ---
ICU/RN PT IS INTUBATED ON THE VENT AC MODE,FIO2-45%,SAT O2-97%.OFF PRESSORS.V/S STABLE,AFEBRILE.NO PAIN REPORTED AT THIS TIME.PT IS NOT SEDATED.OPEN EYES NOT FOLLOWS COMMANDS.RIGHT UPPER ARM PICC LINE.RIGHT FEMORAL HD CATH WITH PICC TAIL.F/C IN PLACE NO URINE OUTPUT.PT IS ON HD .G-TUBE INFUSING WITH GLUCERNA AT 15 ML/HR ,100 ML RESIDUAL NOTED. NOTIFIED .OK TO CONTINUE FEEDING.PT HAS SACRAL WOUND COVERED WITH DRESSING.LABS REVIEW. NOTIFIED.K-3.1.NEW ORDERERS RECEIVED.SUCTION PROVIDED.REPOSITION FOR COMFORT.
[2021-08-08] MEDS: MEROPENEM 500 MG in IV NS 0.9% 50 ML IV SCH ×2 (08:29→20:48)
[2021-08-08] MEDS: DOCUSATE SODIUM LIQ 100 MG/10 ML UDC NG SCH (08:30)
[2021-08-08] MEDS: ASCORBIC ACID 500 MG TABLET PO SCH (08:30)
[2021-08-08] MEDS: MULTIVIT W/MINERALS 1 TAB TABLET PO SCH (08:30)
[2021-08-08] MEDS: FLUCONAZOLE (100 MG) 100 MG TABLET GT SCH (08:30)
[2021-08-08] MEDS: LORAZEPAM INJ 2 MG/ML VIAL IVP SCH ×2 (08:30→16:49)
[2021-08-08] MEDS: ENOXAPARIN SODIUM 80 MG/0.8 ML DISP.SYRIN SQ SCH ×2 (08:31→21:27)
[2021-08-08] MEDS: PROSOURCE / PROSTAT (PYXIS) 30 ML UDC PO SCH (08:33)
[2021-08-08] MEDS: Z GUARD REMEDY 2 OZ OINT TP SCH (08:34)
[2021-08-08] MEDS: CLOTRIMAZOLE 1% 15 GM TUBE TP SCH ×2 (08:34→16:50)
--- NOTE | 2021-08-08 09:00 | NUR ---
ICU/RN DUE MEDS ARE GIVEN ORDERED. CONTINUE MONITORING.
[2021-08-08] MEDS ORDERED: POTASSIUM CL. PREMIX PERIPHER. 50 ML IV SCH (09:30)
[2021-08-08] MEDS ORDERED: POTASSIUM CHLORIDE 20 MEQ POWDER PACKET GT SCH ×2 (09:30→10:30)
[2021-08-08] MEDS: INSULIN REGULAR, HUMAN 100 UNIT/ML 3 ML VIAL SQ PRN ×2 (11:44→17:49)
[2021-08-08] MEDS: GLUCERNA 1.2 1,000 ML BOTTLE NG PRN (12:44)
[2021-08-08] MEDS: VANCOMYCIN 1 GM in IV D5W 250 ML IV SCH (13:06)
[2021-08-08] MEDS: Potassium Chloride 20 MEQ in IV D5/0.45 NACL 1,000 ML IV PRN (15:55)
[2021-08-08] MEDS: LACTULOSE 10 G/15 ML UDC (PYXIS) GT SCH (16:48)
--- NOTE | 2021-08-08 17:35 | NUR ---
ICU/RN PM CARE PROVIDED.WOUND DRESSING DONE ORDERED.REPOSITION FOR COMFORT.DUE MEDS ARE GIVEN .CONTINUE MONITORING.
--- NOTE | 2021-08-08 19:40 | NUR ---
N NOTES RECEIVED PATIENT ASLEEP ON BED, NOT FOLLOWING COMMAND.RESPONSIVE TO TACTILE STIMULI. ORALLY INTUBATED WITH ETT 7.5 AND 25 CM AT LIP WITH VENT SETTING AC 16 TV 500 FIO2 45% NO PEEP. NO RESPIRATORY DISTRESS. NO SEDATION. SATURATION 97%. NSR ON MONITOR HR ON 86. AFEBRILE. VSS NO PRESSOR. IV SITE ON JAVAN PICC LINE AND RIGHT FEMORAL HD CATH INTACT, CLEAN AND DRY. GENERALIZED PITTING EDEMA +4 PRESENT . NGTF INTACT PATENTCY CHECKED WITH RESIDUAL OF 600 CC YELLOWISH OUTPUT. TURN AND REPOSITION OFFLOADED EXT WITH PILLOWS. KEPT PT CLEAN AND DRY. WILL CLOSELY MONITOR.
--- NOTE | 2021-08-08 19:41 | NUR ---
RT NOTE PT INTUBATED WITH 7.5 ET TUBE @ 25 CM. ET TUBE SECURED VIA ANCHOR FAST. SMALL THICK SECRETIONS NOTED. VENT PLUGGED TO RED OUTLET. ALARMS ON AND AUDIBLE. NO RESPIRATORY DISTRESS NOTED. WILL MONITOR. Addendum: 08/08/21 at 2156 by DESIREE FLORES RT Amended: Links added.
[2021-08-08] MEDS: INSULIN GLARGINE, 100 UNIT/ML CARTRIDGE SQ SCH (21:32)
[2021-08-09] VITALS (28 sets, daily range): BP systolic 99–140; BP diastolic 57–83
[2021-08-09] MEDS: FLUDROCORTISONE 0.1 MG TABLET PO SCH ×4 (00:11→17:17)
[2021-08-09] MEDS: METOCLOPRAMIDE HCL 10 MG/2 ML VIAL IV SCH ×4 (00:11→17:16)
[2021-08-09] MEDS: BLOOD SUGAR DIAGNOSTIC 1 EACH STRIP IN SCH ×4 (00:15→18:22)
[2021-08-09] MEDS: INSULIN REGULAR, HUMAN 100 UNIT/ML 3 ML VIAL SQ PRN ×4 (00:18→18:25)
[2021-08-09] MEDS: IV NS 0.9% 500 ML BAG IV PRN (00:55)
[2021-08-09 04:52] LABS: CALCIUM, SERUM 7.6 mg/dL (8.5-10.1); POTASSIUM 3.2 mmol/L (3.5-5.1)
[2021-08-09] MEDS: Potassium Chloride 20 MEQ in IV D5/0.45 NACL 1,000 ML IV PRN ×2 (05:02→18:01)
[2021-08-09] MEDS: HYDROCORTISONE SOD SUCCINATE 100 MG/2 ML VIAL IV SCH ×3 (05:41→20:23)
--- NOTE | 2021-08-09 07:00 | NUR ---
RN NOTES PATIENT REMAINED STABLE ON ETT AND THE SAME VENT SETTING. NO APPARENT RESPIRATORY DISTRESS. SATURATION WELL >95%. AFEBRILE. VSS. SINUS RHYTHM ON MONITOR. GTF GLUCERNA 1.2 @ 15 ML/HR KEPT IN PLACED RESIDUAL <150CC. CONTINUE TO MONITOR Q2H. IV SITE JAVAN PICC LINE RUNNING WITH D5 1/2 NS WITH 20 MEQ POTASSIUM @ 75 ML.HR ONGOING. RIGHT FEMORAL HD CATH KEPT CLEAN AND DRY. CONTINUE ON ACCU CHECK. KEPT PT CLEAN AND COMFORTABLE IN BED. OFFLOADED EXT WITH PILLOWS. ENDORSED CONTINUITY OF CARE TO AM NURSE.
--- NOTE | 2021-08-09 07:30 | NUR ---
RN NOTE PATIENT OBSERVED IN BED INTUBATED WITH MECHANICAL VENTILATOR, ON TELE MONITOR SR AT THIS TIME, GENERALIZE EDEMA NOTED, ELEVATED EXTREMITIES ORDERED, RIGHT UPPER ARM PICC NOTED, PATENT FLUSHING WELL, RIGHT FEMORAL HD CATHETER, WILL CLARIFY REGARDING WHEN WILL TRACHEOSTOMY PLACEMENT HAPPEN, SAFETY MEASURES OBSERVED, BED WHEELS LOCK, CALL LIGHT WITHIN REACH. WILL CONTINUE TO MONITOR PATIENT FOR ANY DENNIS.
--- NOTE | 2021-08-09 08:03 | NUR ---
RN NOTE UPON ASSESSMENT OF THE PATIENT NOTED BRIGHT RED BLEEDING ON THE MERCHANT CATHETER INSERTION SITE. NOTIFIED DONNY BERKOWITZ HOLD LOVENOX ORDERED.
[2021-08-09] MEDS: ENOXAPARIN SODIUM 80 MG/0.8 ML DISP.SYRIN SQ SCH (08:09)
[2021-08-09] MEDS: MEROPENEM 500 MG in IV NS 0.9% 50 ML IV SCH ×2 (08:11→20:21)
[2021-08-09] MEDS ORDERED: POTASSIUM CHLORIDE 20 MEQ POWDER PACKET GT SCH (08:30)
--- NOTE | 2021-08-09 08:55 | NUR ---
RN NOTE CALLED DR. BHATTI OFFICE REGARDING TRACHEOSTOMY PLACEMENT, MD WILL CALL BACK AND UPDATE REGARDING PLAN OF CARE.
[2021-08-09] MEDS: LORAZEPAM INJ 2 MG/ML VIAL IVP SCH ×2 (09:05→17:17)
[2021-08-09] MEDS: DOCUSATE SODIUM LIQ 100 MG/10 ML UDC NG SCH (09:05)
[2021-08-09] MEDS: FLUCONAZOLE (100 MG) 100 MG TABLET GT SCH (09:06)
[2021-08-09] MEDS: ASCORBIC ACID 500 MG TABLET PO SCH (09:06)
[2021-08-09] MEDS: MULTIVIT W/MINERALS 1 TAB TABLET PO SCH (09:06)
[2021-08-09] MEDS: Z GUARD REMEDY 2 OZ OINT TP SCH (09:08)
[2021-08-09] MEDS: PROSOURCE / PROSTAT (PYXIS) 30 ML UDC PO SCH (09:08)
[2021-08-09] MEDS: CLOTRIMAZOLE 1% 15 GM TUBE TP SCH ×2 (09:08→17:17)
--- NOTE | 2021-08-09 09:22 | NUR ---
RN NOTE PATIENT STILL BLEEDING FROM THE MERCHANT INSERTION SITE, NOTIFIED DONNY BERKOWITZ DR. ORDERED CBC NOW, ORDERS NOTED AND CARRIED OUT.
[2021-08-09 09:53] LABS: BASOPHILS # (AUTO) 0.1 K/uL (0.0-0.2); BASOPHILS % (AUTO) 0.5 % (0.0-2.0); EOSINOPHILS % (AUTO) 0.2 % (0.0-6.0); HEMATOCRIT 25 % (39-51); HEMOGLOBIN 8.5 g/dL (13.5-17.5); LYMPHOCYTES # (AUTO) 1.4 K/uL (0.8-4.8); MEAN CORPUSCULAR HGB CONC 33 g/dl (31.0-36.0); MEAN CORPUSCULAR VOLUME 91 fL (80-96); MONOCYTES # (AUTO) 0.4 K/uL (0.1-1.30); MONOCYTES % (AUTO) 3.1 % (2.0-12.0); NEUTROPHILS # (AUTO) 12.3 K/uL (1.8-8.9); NEUTROPHILS % (AUTO) 86.2 % (43.0-81.0); PLATELET COUNT (AUTO) 589 K/uL (150-450); WHITE BLOOD COUNT (AUTO) 14.3 K/uL (4.3-11.0)
--- NOTE | 2021-08-09 10:29 | NUR ---
RN NOTE PATIENT SEEN BY DR. BERKOWITZ AT BED SIDE UPDATED REGARDING PATIENT CURRENT CONDITION, DISCONTINUE LOVENOX ORDERED.
--- NOTE | 2021-08-09 11:37 | NUR ---
RN NOTE PER DR. BHATTI TRACHEOSTOMY PLACEMENT FOR TOMORROW. DISCONTINUED LOVENOX PER JAY BERKOWITZ.
[2021-08-09] MEDS: VANCOMYCIN 1 GM in IV D5W 250 ML IV SCH (13:21)
[2021-08-09] MEDS: LACTULOSE 10 G/15 ML UDC (PYXIS) GT SCH (17:16)
--- NOTE | 2021-08-09 19:29 | NUR ---
RN NOTES PT TOLERATING VENT SETTINGS WELL. NOT IN DISTRESS. RESIDUAL OF 150CC. KEPT PT CLEAN AND COMFORTABLE IN BED. ENDORSED TO NIGHT NURSE FOR DENNIS.
--- NOTE | 2021-08-09 19:45 | NUR ---
ICU/SUPERINTENDENT FISH HATCHERY RECIEVED REPORT FROM DAY SHIFT NURSE. SEE FLOWSHEET FOR ASSESSMENT, THERE ARE A FEW SKIN ISSUES THAT ARE ADDRESSED ON THE FLOWSHEET, ALONG WITH INTERVENTIONS TO EACH. THERE ARE NO IV'S THAT ARE ADDRESSED. PT TURNS SELF FOR COMFORT AND CARE.WILL CONTINUE TO MONITOR THIS PT. NO ACUTE DISTRESS SEEN AT THIS. CALL LIGHT WITHIN REACH Addendum: 08/10/21 at 0456 by JUAN LOVE LVN PT REQUIRES FULL ASST. WITH TURNING
--- NOTE | 2021-08-09 19:53 | NUR ---
PT RECEIVED INTUBATED 7.5 ETT SECURED AT 25CM AT THE LIP. NO RESP DISTRESS, PT TOLERATING VENT SETTINGS. SX'D SMALL AMT OF MILLER SECRETIONS. VENT ALARMS SET AND AUDIBLE. AMBU BAG AT BEDSIDE. Addendum: 08/09/21 at 1954 by JIMMY MARES RT Amended: Links added.
--- NOTE | 2021-08-09 20:10 | NUR ---
ICU/RETAIL INVENTORY CONTROL CLERK RESIDUALS FROM G/TUBE ARE ELEVATED AT 500. G/TUBE FEEDING REMAINS OFF. PT RECIEVED REGLAN AT MIDNIGHT. WILL CONTINUE TO CHECK THE G/TUBE RESIDUALS. ALSO AT THIS TIME THERE WAS A DTI THAT NEEDED TO BE ADDRESSED. THIS WAS PHOTOGRAPHED AND DOCUMENTED.
--- NOTE | 2021-08-09 22:10 | NUR ---
ICU/TITLE AGENT PT WAS GIVEN ORAL CARE ALONG WITH PM CARE. PT REMAINS ON CURRENT VENT SETTINGS WITH SATURATION AT 99-100%. PT WAS TURNED AND REPOSITIONED FOR COMFORT AND CARE. WILL CONTINUE TO MONITOR THIS PT. NO ACUTE DISTRESS SEEN AT THIS TIME.
[2021-08-09] MEDS: INSULIN GLARGINE, 100 UNIT/ML CARTRIDGE SQ SCH (22:24)
[2021-08-10] VITALS (40 sets, daily range): BP systolic 110–147; BP diastolic 61–88
[2021-08-10] MEDS: BLOOD SUGAR DIAGNOSTIC 1 EACH STRIP IN SCH ×5 (00:24→23:52)
[2021-08-10] MEDS: INSULIN REGULAR, HUMAN 100 UNIT/ML 3 ML VIAL SQ PRN ×4 (00:25→23:53)
[2021-08-10] MEDS: FLUDROCORTISONE 0.1 MG TABLET PO SCH ×5 (00:25→23:52)
[2021-08-10] MEDS: METOCLOPRAMIDE HCL 10 MG/2 ML VIAL IV SCH ×5 (00:26→23:54)
--- NOTE | 2021-08-10 00:30 | NUR ---
ICU/TIN POT OPERATOR RESIDUALS FROM G/TUBE CONTINUE TO BE ELEVATED AT 450. G/TUBE FEEDING REMAINS OFF. PT RECIEVED REGLAN AT MIDNIGHT. WILL CONTINUE TO CHECK THE G/TUBE RESIDUALS. MIDNIGHT BLOOD SUGAR CHECK IS 168. WILL ALSO MONITOR THESE BLOOD SUGAR CHECKS.
[2021-08-10] MEDS ORDERED: IV PREMIX D5 1/2NS + KCL 1,000 ML IV ONE (01:47)
[2021-08-10] MEDS: Potassium Chloride 20 MEQ in IV D5/0.45 NACL 1,000 ML IV PRN ×3 (01:54→21:57)
--- NOTE | 2021-08-10 02:45 | NUR ---
ICU/CELL GENETICIST PT WAS GIVEN ORAL CARE ALONG WITH AM CARE. PT REMAINS ON CURRENT VENT SETTINGS WITH SATURATION AT 99-100%. ALSO AT THIS TIME DRESSING CHANGES WERE DONE. PT WAS TURNED AND REPOSITIONED FOR COMFORT AND CARE. WILL CONTINUE TO MONITOR THIS PT. NO ACUTE DISTRESS SEEN AT THIS TIME.
[2021-08-10] MEDS: IV NS 0.9% 500 ML BAG IV PRN (03:13)
--- NOTE | 2021-08-10 05:00 | NUR ---
ICU/METHODS ANALYST DATA PROCESSING AM LABS WERE DONE. AWAIT FOR ANY CRITICAL LAB VALUES. ALSO AM CHEST XRAY WAS DONE.
[2021-08-10 05:17] LABS: CALCIUM, SERUM 6.6 mg/dL (8.5-10.1); CREATININE 1.6 mg/dL (0.6-1.3); POTASSIUM 4.5 mmol/L (3.5-5.1)
[2021-08-10] MEDS: HYDROCORTISONE SOD SUCCINATE 100 MG/2 ML VIAL IV SCH ×3 (05:24→21:17)
--- NOTE | 2021-08-10 06:40 | NUR ---
ICU/SENIOR FINANCIAL REPORTING ACCOUNTANT HIGH RESIDUALS ARE FOUND AT 400ML/HR. WILL CONTINUE TO CLOSELY MONITOR THIS.
--- NOTE | 2021-08-10 07:23 | NUR ---
WOUND CARE CONSULT/FOLLOW UP: PT SEEN FOR RE-EVALUATION OF SACRAL DEEP TISSUE INJURY IN EVOLUTION AND EVALUATION OF LEFT LOWER BUTTOCK DEEP TISSUE INJURY WHICH IS INTACT. SACRAL DTI CONTINUES TO BE IN EVOLUTION AND IS FOLLOWED BY SURGICAL TEAM. LEFT BUTTOCK DTI HAS INTACT EDEMA BLISTER TO PERIWOUND AREA. RECOMMENDATIONS MADE FOR WOUND CARE AND SKIN PROTECTION. SURGICAL FOLLOW UP IS APPRECIATED. PT NOTED TO HAVE MULTIPLE CO-MORBIDITIES INCLUDING GENERALIZED EDEMA, DIABETES, RESPIRATORY FAILURE SECONDARY TO PNEUMONIA(CURRENTLY INTUBATED), PULMONARY EMBOLUS, RENAL FAILURE, HYPOTENSIVE SHOCK, THROMBOCYTOPENIA AND ANEMIA. DUE TO MULTIPLE CO-MORBIDITIES, FURTHER SKIN BREAKDOWN MAY BE UNAVOIDABLE. ALL SKIN PROTECTION MEASURES ARE IN PLACE INCLUDING LOW AIRLOSS MATTRESS. MD IN AGREEMENT WITH PLAN OF CARE.
--- NOTE | 2021-08-10 07:30 | NUR ---
RECORD CENTER COORDINATOR Opening notes Patient received in bed with eyes opening to verbal and physical stimuli and blink refelex.Patient received on mechanical vent settings TV 500, AC 16, FI02 OF 45%, PEEP OF 0 WITH 02 SAT OF 98%, portia well. Iv fluids running at 125 cc/hour to right upper arm picc line. Per report patient did not have any urine output. Patient's hob kept elevated. Louis cath intact and hanging to gravity. Will continue to monitor. Bed is in lowest and locked position.Call light with in reach.
[2021-08-10] MEDS: MULTIVIT W/MINERALS 1 TAB TABLET PO SCH (08:44)
[2021-08-10] MEDS: MEROPENEM 500 MG in IV NS 0.9% 50 ML IV SCH (08:44)
[2021-08-10] MEDS: PROSOURCE / PROSTAT (PYXIS) 30 ML UDC PO SCH (08:44)
[2021-08-10] MEDS: LORAZEPAM INJ 2 MG/ML VIAL IVP SCH ×2 (08:44→17:29)
[2021-08-10] MEDS: DOCUSATE SODIUM LIQ 100 MG/10 ML UDC NG SCH (08:44)
[2021-08-10] MEDS: FLUCONAZOLE (100 MG) 100 MG TABLET GT SCH (08:44)
[2021-08-10] MEDS: ASCORBIC ACID 500 MG TABLET PO SCH (08:44)
[2021-08-10] MEDS: CLOTRIMAZOLE 1% 15 GM TUBE TP SCH ×2 (08:45→17:23)
[2021-08-10] MEDS: Z GUARD REMEDY 2 OZ OINT TP SCH (08:45)
--- NOTE | 2021-08-10 12:25 | NUR ---
Patient's donis flushed and urine flowing freely.
[2021-08-10] MEDS ORDERED: VANCOMYCIN 0.75 GM in IV D5W 250 ML IV SCH (14:00)
--- NOTE | 2021-08-10 15:32 | NUR ---
Patient noted with dark brown urine with output of 1100 cc at this time.
[2021-08-10] MEDS: LACTULOSE 10 G/15 ML UDC (PYXIS) GT SCH (17:29)
--- NOTE | 2021-08-10 17:30 | NUR ---
Received call from Dr Back that he will be performing trach procedure on 08/11 sometime in the early afternoon. Evening nurse to hold Kikox.
--- NOTE | 2021-08-10 18:40 | NUR ---
STOCK LIFTER CLOSING NOTES Patient in bed with eyes opening to verbal and physical stimuli and blink reflex.Patient on mechanical vent settings TV 500, AC 16, FI02 OF 35%, PEEP OF 0 WITH 02 SAT OF 98%, portia well. Iv fluids running at 125 cc/hour to right upper arm picc line. Per report patient did not have any urine output. Patient's hob kept elevated. Louis cath intact and hanging to gravity and noted with 1325 cc of urine output that was dark brown in color. Patient was turned and repositioned q2h and prn. Noted with 420 cc g tube output in am, 400 cc output in noon and 240 cc at 1700. HOB kept elevated.Wound care provided. Will continue to monitor. Bed is in lowest and locked position.Call light with in reach. Will endorse to next shift for DENNIS.
--- NOTE | 2021-08-10 19:59 | NUR ---
PT INTUBATED ON THE [facility] VENT. 7.5 ETT SECURED AT 25CM AT THE LIP. NO RESP DISTRESS NOTED. PT TOLERATING VENT SETTINGS. SX'D SMALL AMT OF THICK YELLOW SECRETIONS. VENT ALARMS SET AND AUDIBLE. AMBU BAG AT BEDSIDE. Addendum: 08/10/21 at 1999 by JIMMY MARES RT Amended: Links added.
[2021-08-10] MEDS: INSULIN GLARGINE, 100 UNIT/ML CARTRIDGE SQ SCH (22:00)
[2021-08-11] VITALS (23 sets, daily range): BP systolic 115–145; BP diastolic 70–90
[2021-08-11 04:26] LABS: BASOPHILS % (AUTO) 0.1 % (0.0-2.0); EOSINOPHILS % (AUTO) 0.7 % (0.0-6.0); HEMATOCRIT 27 % (39-51); HEMOGLOBIN 8.9 g/dL (13.5-17.5); LYMPHOCYTES # (AUTO) 1.3 K/uL (0.8-4.8); LYMPHOCYTES % (AUTO) 11.8 % (20.0-44.0); MEAN CORPUSCULAR HGB CONC 34 g/dl (31.0-36.0); MEAN CORPUSCULAR VOLUME 90 fL (80-96); MONOCYTES # (AUTO) 0.3 K/uL (0.1-1.30); MONOCYTES % (AUTO) 2.6 % (2.0-12.0); NEUTROPHILS # (AUTO) 9.3 K/uL (1.8-8.9); NEUTROPHILS % (AUTO) 84.8 % (43.0-81.0); PLATELET COUNT (AUTO) 488 K/uL (150-450); RED BLOOD CELL COUNT(AUTO) 2.94 MIL/uL (4.5-6.0)
[2021-08-11 04:34] LABS: CALCIUM, SERUM 7.3 mg/dL (8.5-10.1); CREATININE 1.3 mg/dL (0.6-1.3)
[2021-08-11] MEDS: METOCLOPRAMIDE HCL 10 MG/2 ML VIAL IV SCH ×4 (05:26→22:59)
[2021-08-11] MEDS: HYDROCORTISONE SOD SUCCINATE 100 MG/2 ML VIAL IV SCH ×3 (05:26→17:19)
[2021-08-11] MEDS: BLOOD SUGAR DIAGNOSTIC 1 EACH STRIP IN SCH ×4 (06:04→22:56)
[2021-08-11] MEDS: FLUDROCORTISONE 0.1 MG TABLET PO SCH ×4 (06:04→23:17)
[2021-08-11] MEDS: INSULIN REGULAR, HUMAN 100 UNIT/ML 3 ML VIAL SQ PRN ×4 (06:05→22:57)
--- NOTE | 2021-08-11 07:30 | NUR ---
GREENHOUSE WORKER Opening notes Patient received in bed with eyes opening to verbal and physical stimuli and blink refelex.Patient received on mechanical vent settings TV 500, AC 16, FI02 OF 35%, PEEP OF 0 WITH 02 SAT OF 100%, portia well. Iv fluids running at 125 cc/hour to right upper arm picc line.Patient's hob kept elevated. Louis cath intact and hanging to gravity. Will continue to monitor. Bed is in lowest and locked position.Call light with in reach.
[2021-08-11] MEDS: Potassium Chloride 20 MEQ in IV D5/0.45 NACL 1,000 ML IV PRN ×2 (08:53→16:30)
[2021-08-11] MEDS: Z GUARD REMEDY 2 OZ OINT TP SCH (08:56)
[2021-08-11] MEDS: CLOTRIMAZOLE 1% 15 GM TUBE TP SCH ×2 (08:56→16:33)
[2021-08-11] MEDS: MULTIVIT W/MINERALS 1 TAB TABLET PO SCH (09:22)
[2021-08-11] MEDS: LORAZEPAM INJ 2 MG/ML VIAL IVP SCH ×2 (09:23→17:18)
[2021-08-11] MEDS: PROSOURCE / PROSTAT (PYXIS) 30 ML UDC PO SCH (09:23)
[2021-08-11] MEDS: ASCORBIC ACID 500 MG TABLET PO SCH (09:23)
[2021-08-11] MEDS: DOCUSATE SODIUM LIQ 100 MG/10 ML UDC NG SCH (09:23)
[2021-08-11] MEDS: FLUCONAZOLE (100 MG) 100 MG TABLET GT SCH (09:23)
--- NOTE | 2021-08-11 16:00 | NUR ---
Received call from DR Back that he will be coming on 08/12 around 8 am for trach placement. MD Eldridge aware.
[2021-08-11] MEDS: LACTULOSE 10 G/15 ML UDC (PYXIS) GT SCH (17:18)
--- NOTE | 2021-08-11 19:20 | NUR ---
SLUBBER FRAME CHANGER CLOSING NOTES Patient in bed with eyes opening to verbal and physical stimuli and blink refelex.Patient on mechanical vent settings TV 500, AC 16, FI02 OF 35%, PEEP OF 0 WITH 02 SAT OF 100%, portia well. Iv fluids running at 125 cc/hour to right upper arm picc line.Patient's hob kept elevated. Louis cath intact and hanging to gravity with urine output of 1200 cc during shift. Patient taken to radiology for CT of abdomen and pelvis and portia the transfer well. Will continue to monitor. Bed is in lowest and locked position.Call light with in reach.Endorsed to next shift for DENNIS.
--- NOTE | 2021-08-11 19:25 | NUR ---
ICU/CORPORATE LEGAL INTERN RECIEVED REPORT FROM DAY SHIFT NURSE. SEE FLOWSHEET FOR ASSESSMENT. THERE ARE MANY IV'S THAT ARE ADDRESSED ON THE IV SPREAD SHEET. PT WAS TURNED AND REPOSITIONED FOR COMFORT AND CARE.WILL CONTINUE TO MONITOR THIS PT. NO ACUTE DISTRESS SEEN AT THIS. Addendum: 08/12/21 at 0739 by JUAN LOVE LVN THERE IS ONLY ONE IV TO ADDRESS ON THE IV SPREAD SHEET.
--- NOTE | 2021-08-11 21:30 | NUR ---
ICU/CUT TO LENGTH OPERATOR PT WAS GIVEN ORAL CARE ALONG WITH PM CARE. PT REMAINS ON CURRENT VENT SETTINGS WITH SATURATION AT 99-100%. PT WAS TURNED AND REPOSITIONED FOR COMFORT AND CARE. WILL CONTINUE TO MONITOR THIS PT. NO ACUTE DISTRESS SEEN AT THIS TIME. ALSO AT THIS TIME @2200 BLOOD SUGAR WAS 154, THIS WAS COVERED WITH LANTUS. WILL CONTINUE TO MONITOR THIS PT.
--- NOTE | 2021-08-11 22:47 | NUR ---
ICU/APPRENTICE LINEMAN THIRD STEP RIGHT ARM IS VERY SWOLLEN MORE THAN USUSAL, OBTAINED A VERBAL ORDER FOR DOPPLER STUDY TO R/O DVT
[2021-08-11] MEDS: INSULIN GLARGINE, 100 UNIT/ML CARTRIDGE SQ SCH (22:57)
[2021-08-12] VITALS (24 sets, daily range): BP systolic 110–155; BP diastolic 63–98
--- NOTE | 2021-08-12 00:30 | NUR ---
ICU/INTERNAL GRINDER TENDER RESIDUALS FROM G/TUBE IS SLIGHTLY ELEVATED AT 125. G/TUBE FEEDING REMAINS OFF. PT RECIEVED REGLAN AT MIDNIGHT. WILL CONTINUE TO CHECK THE G/TUBE RESIDUALS. MIDNIGHT BLOOD SUGAR CHECK IS 154. WILL ALSO MONITOR THESE BLOOD SUGAR CHECKS. RESIDUAL FROM G/TUBE @1999 WAS 150ML. WILL CONTINUE TO MONITOR THESE RESIDUALS.
[2021-08-12] MEDS: Potassium Chloride 20 MEQ in IV D5/0.45 NACL 1,000 ML IV PRN ×3 (01:38→20:00)
--- NOTE | 2021-08-12 02:45 | NUR ---
ICU/EARTH MOVER PT WAS GIVEN ORAL CARE ALONG WITH AM CARE. PT REMAINS ON CURRENT VENT SETTINGS WITH SATURATION AT 99-100%. ALSO AT THIS TIME DRESSING CHANGES WERE DONE. PT WAS TURNED AND REPOSITIONED FOR COMFORT AND CARE. WILL CONTINUE TO MONITOR THIS PT. NO ACUTE DISTRESS SEEN AT THIS TIME.
--- NOTE | 2021-08-12 04:30 | NUR ---
ICU/CLAIMS COLLECTOR AM LABS WERE DONE. AWAIT FOR ANY CRITICAL LAB VALUES. ALSO AM CHEST XRAY WAS DONE.
[2021-08-12 05:11] LABS: CALCIUM, SERUM 7.1 mg/dL (8.5-10.1); POTASSIUM 3.6 mmol/L (3.5-5.1)
[2021-08-12] MEDS: METOCLOPRAMIDE HCL 10 MG/2 ML VIAL IV SCH (05:39)
[2021-08-12] MEDS: BLOOD SUGAR DIAGNOSTIC 1 EACH STRIP IN SCH ×4 (05:40→23:45)
[2021-08-12] MEDS: FLUDROCORTISONE 0.1 MG TABLET PO SCH ×4 (05:40→23:45)
--- NOTE | 2021-08-12 07:15 | NUR ---
RN NOTES RECEIVED PT AWAKE. OPENS EYES. ETT 7.5, TOLERATING VENT SETTINGS WELL. NO SOB OR ANY RESPIRATORY DISTRESS NOTED. MERCHANT CATH IN PLACE, DRAINING YELLOW-YOLANDA COLORED URINE. JAVAN PICCLINE INTACT AND PATENT. SWELLING NOTED ON BUE. GT FEEDING ON HOLD. RESIDUALS OF 150 AT TIME OF RECEIVE. SAFETY MEASURES IN PLACE. BED LOCKED AND IN LOWEST POSITION WITH SIDE RAILS UP X3. HOB ELEVATED. WILL CONITNUE TO MONITOR.
[2021-08-12] MEDS: FLUCONAZOLE (100 MG) 100 MG TABLET GT SCH (08:26)
[2021-08-12] MEDS: HYDROCORTISONE SOD SUCCINATE 100 MG/2 ML VIAL IV SCH (08:26)
[2021-08-12] MEDS: PROSOURCE / PROSTAT (PYXIS) 30 ML UDC PO SCH (08:26)
[2021-08-12] MEDS: ASCORBIC ACID 500 MG TABLET PO SCH (08:26)
[2021-08-12] MEDS: DOCUSATE SODIUM LIQ 100 MG/10 ML UDC NG SCH (08:26)
[2021-08-12] MEDS: MULTIVIT W/MINERALS 1 TAB TABLET PO SCH (08:26)
[2021-08-12] MEDS: LORAZEPAM INJ 2 MG/ML VIAL IVP SCH ×2 (08:27→17:11)
[2021-08-12] MEDS: Z GUARD REMEDY 2 OZ OINT TP SCH (08:27)
[2021-08-12] MEDS: CLOTRIMAZOLE 1% 15 GM TUBE TP SCH ×2 (08:27→17:12)
--- NOTE | 2021-08-12 08:50 | NUR ---
RT NOTE: LATE ENTRY- PATIENT RECEIVED ORALLY INTUBATED ON MECHANICAL VENT. BEDSIDE BRONCHOSCOPY AND TRACHEOSTOMY PLACEMENT DONE. PATIENT TOLERATED WELL. SHILEY #[address] BILATERAL B/S NOTED. SUCTIONED SMAL/MODERATE AMOUNT OF THIN MILLER/BLOOD TINGED SECRETIONS. AMBU BAG AT [facility].
--- NOTE | 2021-08-12 08:50 | NUR ---
RN NOTES TRACH PLACEMENT DONE AT BEDSIDE BY DR. TRENT AND DR. BHATTI. DIPRIVAN STARTED AND VECURONIUM 1MG GIVEN. VS STABLE. NO S/S OF BLEEDING. DRESSING DRY AND INTACT.
[2021-08-12] MEDS: PROPOFOL 100 ML IV PRN (08:58)
[2021-08-12] MEDS ORDERED: METOCLOPRAMIDE HCL 10 MG TABLET GT PRN (10:30)
[2021-08-12] MEDS: GLUCERNA 1.2 1,000 ML BOTTLE NG PRN (11:35)
[2021-08-12] MEDS: INSULIN REGULAR, HUMAN 100 UNIT/ML 3 ML VIAL SQ PRN ×3 (12:02→23:45)
[2021-08-12] MEDS: METOCLOPRAMIDE HCL 10 MG TABLET GT SCH ×2 (12:27→17:11)
[2021-08-12] MEDS ORDERED: ROCURONIUM BROMIDE 50 MG/5 ML IV ONE (15:02)
[2021-08-12] MEDS ORDERED: VECURONIUM 10 MG VIAL IV ONE (15:02)
[2021-08-12] MEDS: LACTULOSE 10 G/15 ML UDC (PYXIS) GT SCH (17:11)
--- NOTE | 2021-08-12 18:51 | NUR ---
RN NOTES NO SIGNIFICANT CHANGES THROUGHOUT THE SHIFT. VS STABLE. ON SHILEY #8, TOLERATING VENT SETTINGS WELL. NO SOB OR ANY DISTRESS NOTED. NO SIGNS OF PAIN. KEPT CLEAN AND COMFORTABLE. ALL DUE MEDS GIVEN. NEEDS ATTENDED. SAFETY MEASURES IN PLACE. WILL ENDORSE TO NIGHT RN FOR DENNIS.
--- NOTE | 2021-08-12 19:05 | NUR ---
RECEIVED PT ON BED OBTUNDED OPEN EYES TO STIMULI ON TRACH/VENT SETTING PER MD FIO2 35% SPO2 100% NO SIGN OF RESPIRATORY DISTRESS, TELE MONITOR WITH READING SINUS RHYTHM 80'S HAVE PEG TUBE ON PLACE CLAMPED DUE TO RESIDUAL >250 ML MD IS AWARE, HAVE JAVAN PICC WITH ONGOIGN 20 MEQ KCL +D5W 1000ML RUNNING AT 125ML/HR INFUSING WELL, MERCHANT CATHETER DRAINING YELLOW URINE VIA GRAVITY BED ON LOWEST POSITION AND LOCKED SIDE RAILS UP X2 CALL LIGHT WITHIN REACH WILL CONT TO MONITOR
[2021-08-12] MEDS: INSULIN GLARGINE, 100 UNIT/ML CARTRIDGE SQ SCH (22:09)
[2021-08-13] VITALS (24 sets, daily range): BP systolic 106–148; BP diastolic 64–105
--- NOTE | 2021-08-13 00:15 | NUR ---
RESIDUAL STILL >200 PT STILL ON TRACH, VENT SETTING PER MD NO SIGN OF RESPIRATORY DISTRESS, WILL CONT TO MONITOR
[2021-08-13] MEDS ORDERED: IV PREMIX D5 1/2NS + KCL 1,000 ML IV ONE (03:53)
--- NOTE | 2021-08-13 04:00 | NUR ---
RESIDUAL >150 WILL START FEEDING NOW WITH 10 ML/HR TO PREVENT HYPOGLYCEMIA
[2021-08-13] MEDS: Potassium Chloride 20 MEQ in IV D5/0.45 NACL 1,000 ML IV PRN ×3 (04:01→22:41)
[2021-08-13] MEDS: FLUDROCORTISONE 0.1 MG TABLET PO SCH ×4 (05:03→23:11)
[2021-08-13 05:11] LABS: CALCIUM, SERUM 6.8 mg/dL (8.5-10.1); POTASSIUM 3.8 mmol/L (3.5-5.1)
[2021-08-13] MEDS: BLOOD SUGAR DIAGNOSTIC 1 EACH STRIP IN SCH ×4 (05:34→23:12)
[2021-08-13] MEDS: INSULIN REGULAR, HUMAN 100 UNIT/ML 3 ML VIAL SQ PRN ×2 (05:35→18:51)
--- NOTE | 2021-08-13 07:19 | NUR ---
PT STILL ON BED OBTUNDED OPEN EYES ONLY STILL ON TRACH/VENT SETTING PER MD NO RESPIRATORY DISTRESS NOTED, TELE MONITOR READS SINUS RHYTHM STILL HAVE RESIDUAL> 100ML WITH GLUCERNA RUNNING @ 10ML/HR, BED ON LOWEST POSITION AND LOCKED SIDE RAILS UP X2 WILL CONT TO MONITOR
--- NOTE | 2021-08-13 08:00 | NUR ---
RN NOTES RECEIVED PATIENT IN THE BED OBTUNDED OPEN EYES. TRACH/VENT SETTING PER MD NO RESPIRATORY DISTRESS NOTED, TELE MONITOR READS SINUS RHYTHM . KEEP HOB ELEVATED. GTF 10CC/GHR, RESIDUAL 60ML. PATIENT HAS GENERALIZED EDEMA. PICC LINE ON RIGHT UA INTACT. WILL FOLLOW UP.
[2021-08-13] MEDS: Z GUARD REMEDY 2 OZ OINT TP SCH (09:00)
--- NOTE | 2021-08-13 10:00 | NUR ---
rn notes get to order via Dr Eldridge increase gtf 20cc/hr. order taken and carried out.
[2021-08-13] MEDS: ASCORBIC ACID 500 MG TABLET PO SCH (10:34)
[2021-08-13] MEDS: DOCUSATE SODIUM LIQ 100 MG/10 ML UDC NG SCH (10:35)
[2021-08-13] MEDS: HYDROCORTISONE SOD SUCCINATE 100 MG/2 ML VIAL IV SCH (10:35)
[2021-08-13] MEDS: METOCLOPRAMIDE HCL 10 MG TABLET GT SCH ×3 (10:36→18:44)
[2021-08-13] MEDS: APIXABAN 5 MG TABLET PO SCH ×2 (10:36→18:49)
[2021-08-13] MEDS: MULTIVIT W/MINERALS 1 TAB TABLET PO SCH (10:36)
[2021-08-13] MEDS: CLOTRIMAZOLE 1% 15 GM TUBE TP SCH ×2 (10:37→18:44)
[2021-08-13] MEDS: PROSOURCE / PROSTAT (PYXIS) 30 ML UDC PO SCH (10:38)
--- NOTE | 2021-08-13 12:00 | NUR ---
RN NOTES BS110 MG/DL. SEEN HOSPITALIST TRANSFER PATIENT TO THE [facility], WAITING FOR AVAILABLE BED.
[2021-08-13] MEDS: FLUCONAZOLE (100 MG) 100 MG TABLET GT SCH (14:03)
[2021-08-13] MEDS ORDERED: LORAZEPAM INJ 2 MG/ML VIAL IVP PRN (16:00)
--- NOTE | 2021-08-13 18:30 | NUR ---
RN NOTES PM CARE DONE, SUCTION, MOUTH CARE, DUE MEDICATION ADMINISTERED, VSS, BS-179MG/DL COVERAGE GIVEN, STILL WAITING [facility] BED. ASSIST TURN AND REPOSTION Q 2 HR, MERCHANT DRAINING DARK YELLOW OUTPUT. PATIENT HAS GENERALIZED EDEMA ELEVATED UPPER EXTREMITIES VIA PILLOWS. ENDORSED ONCOMING NURSE DENNIS.
[2021-08-13] MEDS: LACTULOSE 10 G/15 ML UDC (PYXIS) GT SCH (18:43)
[2021-08-13] MEDS: INSULIN GLARGINE, 100 UNIT/ML CARTRIDGE SQ SCH (22:00)
[2021-08-14] VITALS (17 sets, daily range): BP systolic 134–161; BP diastolic 79–96
--- NOTE | 2021-08-14 04:00 | NUR ---
WATCHER AUTOMAT LONG GOODS PT IS OBTUNDED, RESPONSE TO PAINFUL STIMULI ONLY. DOES NOT MOVE EXTREMITIES. TRACH: JENNIFER # 8. VENT. SETTING;AC 16, TV 500, FIO2-35%. TOLERATES WELL. SUCTIONED FOR SMALL AMT. OF PINKISH SECRETION. VSS, AFEBRILE, SCOPE-SR.PEG FEEDING GLUCERNA @ 20 ML/HR. TOLERATES WELL, F/C DRAINS SUFFICIENT AMT. OF CLEAR YELLOW URINE. NO BM. PT HAS SMALL BLOODY DISCHARGE FROM THE PENIS. BATH GIVEN, LINEN CHANGED. WILL CONTINUE CLOSE MONITORING. PT HAS [facility] STATUS. NO BED IS AVAILABLE IN [facility] UNIT TO TRANSFER THE PT.
[2021-08-14] MEDS: BLOOD SUGAR DIAGNOSTIC 1 EACH STRIP IN SCH ×3 (05:25→17:37)
[2021-08-14] MEDS: FLUDROCORTISONE 0.1 MG TABLET PO SCH ×3 (05:25→17:31)
[2021-08-14 07:58] LABS: ABG PCO2 24.7 mmHg (35.0-45.0); AaDO2 132.8 mmHg; SITE, ABG Right Radial; VENT MODE, BG AC 35%; VT, ABG 500 mL
[2021-08-14] MEDS: DOCUSATE SODIUM LIQ 100 MG/10 ML UDC NG SCH (09:41)
[2021-08-14] MEDS: METOCLOPRAMIDE HCL 10 MG TABLET GT SCH ×3 (09:42→17:31)
[2021-08-14] MEDS: MULTIVIT W/MINERALS 1 TAB TABLET PO SCH (09:42)
[2021-08-14] MEDS: ASCORBIC ACID 500 MG TABLET PO SCH (09:42)
[2021-08-14] MEDS: APIXABAN 5 MG TABLET PO SCH ×2 (09:44→17:36)
[2021-08-14] MEDS: HYDROCORTISONE SOD SUCCINATE 100 MG/2 ML VIAL IV SCH (09:45)
[2021-08-14] MEDS: PROSOURCE / PROSTAT (PYXIS) 30 ML UDC PO SCH (09:49)
[2021-08-14] MEDS ORDERED: GLUCERNA 1.2 1,000 ML BOTTLE NG PRN (10:00)
--- NOTE | 2021-08-14 11:05 | NUR ---
RN NOTES PT TRANSFERRED TO ROOM 111-1 VIA ACLS PROTOCOL IN STABLE CONDITION.
--- NOTE | 2021-08-14 11:19 | NUR ---
PT. MOVE FROM ICU 257 TO [facility] 111. PT. USE SAME MECHANICAL VENT, PLUGGED INTO RED OUTLET. ZONIA @ BEDSIDE. Addendum: 08/14/21 at 1121 by LILIANA QUIROGA RT Amended: Links added.
--- NOTE | 2021-08-14 12:21 | NUR ---
NURSE NOTE PEG TUBE RESIDUAL 230ML @12:00PM. HOLD FEEDING. WILL REASSESS RESIDUAL.
--- NOTE | 2021-08-14 14:57 | NUR ---
RECEIVED PATIENT ASLEEP, EASY TO AROUSE, AM CARE PROVIDED, REPOSITIONED FOR COMFORT AND SAFETY, SUCTIONED MOUTH AND PROVIDED MOUTH CARE, ALL MD MEDICATION ORDERS ADMINISTERED NO SIDE EFFECTS NOTED, VITAL SIGNS BEING MONITORED CLOSELY, MERCHANT CATH INTACT DRAINING DARK YELLOW URINE, EDEMA NOTED GENERALIZED, KEPT UPPER EXTREMITIES WITH BED AND PILLOWS FOR COMFORT, AT 1100 TRANSFERRED PATIENT TO [facility] BED 111, REPORT GIVEN TO MACIEJ GUTIERREZ RN COUNSELOR AT LAW AND CAMILO CATALAN NURSE, MONITOR AND CARDIAC DEVICES CLEANSED AND WIPED DOWN TAKEN BACK TO ICU UNIT, SAFE TRANSFER FROM ICU 257 TO [facility] BED 111, NO EPISODES TO NOTE - SAFE TRANSFER.
[2021-08-14] MEDS: Potassium Chloride 20 MEQ in IV D5/0.45 NACL 1,000 ML IV PRN (17:30)
[2021-08-14] MEDS: LACTULOSE 10 G/15 ML UDC (PYXIS) GT SCH (17:38)
--- NOTE | 2021-08-14 18:55 | NUR ---
NURSE CLOSING NOTE RECEIVE PATIENT FROM ICU. PATIENT ON VENTILATOR WITH TRACH COLLAR. PATIENT MAINTAIN STABLE VITAL SIGNS. PATIENT IS OBTUNDED WITH EYES OPEN AND TRACKING. SINUS RHYTH. PATIENT HAVE SACRAL WOUND. LEFT LOWER LEG WOUND. BILATERAL UPPER EXTREMITY EDEMA. PEG TUBE RESIDUAL REMAIN HIGH. RESIDUAL @12:00 230ML. RESIDUAL @17:00 200ML. DID NOT START FEEDING. MEDS WAS GIVEN. MONITOR LABS. SAFETY MEASURE IN PLACE. BED ON THE LOWEST POSITION WITH HOB ELEVATED. REPOSITION AND ROTATE PER PROTOCOL. WILL CONTINUE TO MONITOR AND GIVE REPORT TO ON COMING NURSE.
--- NOTE | 2021-08-14 20:00 | NUR ---
RN NOTE RECEIVED PT WITH TRACH ON MECH VENT. NO SIGNS OF DISTRESS NOTED. O2 SAT AT 100%. PT OPEN EYES. DOES NOT FOLLOW COMMANDS. SR ON TELE MONITOR WITH HR OF 85. GT IN PLACE, PATENT NOTED WITH HIGH RESIDUALS OF 180ML. FEEDING ON HOLD SINCE 12NOON. KEPT HOB ELEVATED. ON KCL IN D51/2 NS AT 125ML/HR. PICC LINE INTACT. MERCHANT IN PLACE, NOTED WITH DARK URINE OUTPUT. WITH BUE AND BLE EDEMA. WILL CONTINUE TO MONITOR.
[2021-08-14] MEDS: INSULIN GLARGINE, 100 UNIT/ML CARTRIDGE SQ SCH (22:00)
--- NOTE | 2021-08-14 22:41 | NUR ---
RN NOTE NOTIFIED IT HELP DESK ANALYST WELDING ROBOT OPERATOR NEYDA REGARDING HIGH GT RESIDUALS. WELDING ROBOT OPERATOR TO HOLD LANTUS AND KEEP FEEDING ON HOLD UNTIL AM. WILL CONTINUE TO MONITOR AND CHECK RESIDUALS. Addendum: 08/14/21 at 2247 by JEROD MACIAS RN FSBS 130. HELD LANTUS.
[2021-08-15] VITALS: BP 153/86
--- NOTE | 2021-08-15 00:15 | NUR ---
RN NOTE GT RESIDUAL AT 120ML. FEEDING KEPT ON HOLD
[2021-08-15] MEDS: INSULIN REGULAR, HUMAN 100 UNIT/ML 3 ML VIAL SQ PRN ×3 (00:16→23:34)
[2021-08-15] MEDS: BLOOD SUGAR DIAGNOSTIC 1 EACH STRIP IN SCH ×5 (00:16→23:33)
[2021-08-15] MEDS: FLUDROCORTISONE 0.1 MG TABLET PO SCH ×5 (00:19→23:34)
[2021-08-15] MEDS: Potassium Chloride 20 MEQ in IV D5/0.45 NACL 1,000 ML IV PRN ×2 (02:00→12:39)
[2021-08-15 04:00] VITALS: BP 137/81
--- NOTE | 2021-08-15 06:58 | NUR ---
RN NOTE PT TOLERATES VENT SETTINGS, NO SIGNS OF DISTRESS. NOTED WITH BLOOD TINGED SMALL AMOUNT OF SECRETIONS. REMAIN AFEBRILE. GT FEEDING KEPT ON HOLD. RESIDUALS AT 2OML. CONTINUE ON IVFLUIDS OF KCL IN D51/2NS, INFUSING WELL. HD CATH ON RFEMORAL REMAIN INTACT. MERCHANT DRAINING WELL. FSBS AT 144, 2 UNITS INSULIN GIVEN. WOUND TX WERE DONE ORDERED. TURNED AND REPOSITIONED. KEPT CLEAN AND DRY. EXTREMITIES ELEVATED DUE TO EDEMA. WILL ENDORSE TO NEXT SHIFT NURSE FOR DENNIS.
--- NOTE | 2021-08-15 07:43 | NUR ---
[facility] RN NOTE PATIENT IN BED , WITH TRACH TO VENT SETTING STILL OBTUNDED, OPEN EYES, WITH MERCHANT CATH TO GRAVITY WITH YELLOW COLOR URINE, ON TELE MONITOR SR HR 82 AT THIS TIME, , WITH G TUBE IN PLACE BUT NO FEEDING AT THIA TIME, NO RESIDUAL NOTED AT THIS TIME, WILL RESTART G TUBE FEEDING SOON , RT UPPER ARM PICC LINE IN PLACE AND FLUSHED WELL , ON IVF ORDERED, BED IN LOWEST AND LOCKED POSITION, CALL LIGHT WITHIN REACH , WILL CONT TO MONITOR CLOSELY
[2021-08-15 08:00] VITALS: BP 150/79
[2021-08-15] MEDS: MULTIVIT W/MINERALS 1 TAB TABLET PO SCH (08:34)
[2021-08-15] MEDS: ASCORBIC ACID 500 MG TABLET PO SCH (08:34)
[2021-08-15] MEDS: APIXABAN 5 MG TABLET PO SCH ×2 (08:36→16:34)
[2021-08-15] MEDS: DOCUSATE SODIUM LIQ 100 MG/10 ML UDC NG SCH (08:36)
[2021-08-15] MEDS: METOCLOPRAMIDE HCL 10 MG TABLET GT SCH ×3 (08:36→16:32)
[2021-08-15] MEDS: CLOTRIMAZOLE 1% 15 GM TUBE TP SCH ×3 (09:08→16:35)
[2021-08-15] MEDS: Z GUARD REMEDY 2 OZ OINT TP SCH ×2 (09:10→09:12)
[2021-08-15] MEDS: PROSOURCE / PROSTAT (PYXIS) 30 ML UDC PO SCH (09:13)
--- NOTE | 2021-08-15 10:25 | NUR ---
WOUND CARE FOLLOW UP: PT SEEN FOR RE-EVALUATION OF LEFT BUTTOCK DISCOLORATION AND SACRAL DEEP TISSUE INJURY. SACRAL DTI CONTINUES TO BE IN EVOLUTION AND LEFT BUTTOCK AREA HAS RED DISCOLORATION, NO FLUCTUANCE, DRAINAGE, TENDERNESS OR ERYTHEMA. DISCUSSED WITH SURGICAL Guillermina STACY, CURRENTLY ON CASE. RECOMMENDATIONS MADE FOR SKIN PROTECTION. WOUND CARE TREATMENT ORDERS DISCUSSED WITH NURSING STAFF. PT IS ON FIRST STEP CIRRUS LOW AIRLOSS MATTRESS. PT IS NOW TRACH'D. ARMS NOTED TO BE VERY EDEMATOUS AND ARE ELEVATED ON PILLOWS. MD IN AGREEMENT WITH PLAN OF CARE. Addendum: 08/15/21 at 1029 by LYNETTE SAAVEDRA WNDNU Amended: Links added.
--- NOTE | 2021-08-15 11:09 | NUR ---
TAXATION AGENT NOTE SEEN BY WOUND CARE NURSE TURN REPOSITION ,WILL MONITOR CLOSELY
[2021-08-15 12:00] VITALS: BP 133/78
--- NOTE | 2021-08-15 12:45 | NUR ---
telephone ad taker notes G-tube feeding started as order, residual 25 ml at this time.
--- NOTE | 2021-08-15 15:30 | NUR ---
telesales representative note dr khan revenue agent at bedside notified that both upper and lower extremities with severe edema ok to stop ivf , residual recheck 10 ml at this time ,will cont g tube feeding at 20 ml per hour
[2021-08-15 16:25] VITALS: BP 122/81
--- NOTE | 2021-08-15 16:29 | NUR ---
COMPLIANCE ANALYST NOTE SPOKE WITH DR THOMPSON NOTIFIED THAT PATIENT HAS BLOODY DRAIN FROM TRACH, PER DR THOMPSON OK TO GIVEN BARRYIS
[2021-08-15] MEDS: LACTULOSE 10 G/15 ML UDC (PYXIS) GT SCH (16:36)
--- NOTE | 2021-08-15 18:22 | NUR ---
FORENSIC ACCOUNTANT NOTES PT IS IN THE BED ON MECHANICAL VENT, NOT IN DISTRESS, TRACH AND ORAL CARE DONE, PT IS IN A G TUBE FEEDING RESIDUAL 25ML, NOT ABDOMINAL DISCOMFORT AT THIS TIME. BED OF THE HEAD ELEVATED. PICC LINE IN PLACE AND FLUSHED. SAFETY MEASUREMENTS IMPLEMENTED, BED LOCKED ON ITS LOWEST POSITION, CALL LIGHT WITHIN REACH. WILL MONITOR PT
[2021-08-15 20:00] VITALS: BP 145/79
--- NOTE | 2021-08-15 20:29 | NUR ---
RN NOTE PATIENT IN BED OBTUNDED, OPENS EYES. ON TRACH TO VENT TOLERATING SETTINGS WELL. NO S/S OF RESPIRATORY DISTRESS. SR ON TELE MONITOR. MERCHANT CATH PATENT AND INTACT, DRAINING YOLANDA URINE VIA GRAVITY. HEAD OF BED ELEVATED. ON G-TUBE RUNNING GLUCERNA @20ML/HR, NOTED WITH 40CC RESIDUAL. JAVAN PICC LINE PATENT, SL. RIGHT FEMORAL HD CATH NOTED, DRESSING DRY AND INTACT. BED LOCKED AND IN LOWEST POSITION. CALL LIGHT WITHIN REACH. ALL NEEDS ANTICIPATED.
[2021-08-15] MEDS: INSULIN GLARGINE, 100 UNIT/ML CARTRIDGE SQ SCH (22:00)
--- NOTE | 2021-08-15 22:08 | NUR ---
RN NOTE FSBS 106, LANTUS HELD. WILL CONTINUE TO MONITOR.
--- NOTE | 2021-08-15 23:34 | NUR ---
RN NOTE FSBS RECHECKED NOTED 106, NO INSULIN COVERAGE GIVEN.
[2021-08-16] VITALS: BP 139/82
--- NOTE | 2021-08-16 | NUR ---
RN NOTE GT RESIDUALS 0CC AT THIS TIME.
[2021-08-16 04:00] VITALS: BP 134/84
[2021-08-16] MEDS: FLUDROCORTISONE 0.1 MG TABLET PO SCH ×2 (05:17→12:40)
[2021-08-16] MEDS: BLOOD SUGAR DIAGNOSTIC 1 EACH STRIP IN SCH ×2 (05:18→12:09)
[2021-08-16] MEDS: INSULIN REGULAR, HUMAN 100 UNIT/ML 3 ML VIAL SQ PRN ×2 (05:31→12:09)
--- NOTE | 2021-08-16 05:31 | NUR ---
RN NOTE FSBS 98, NO INSULIN COVERAGE GIVEN. GT RESIDUALS AT THIS TIME >150. GTUBE FEEDING HELD AT THIS TIME.
--- NOTE | 2021-08-16 06:44 | NUR ---
RN NOTE PATIENT IN BED OBTUNDED, OPENS EYES. ON TRACH TO VENT TOLERATING SETTINGS WELL. NO S/S OF RESPIRATORY DISTRESS. SR ON TELE MONITOR. MERCHANT CATH PATENT AND INTACT, OUTPUT 400CC. HEAD OF BED ELEVATED. G-TUBE FEEDING HELD, RESIDUALS NOTED 350CC. JAVAN PICC LINE PATENT, SL. BED LOCKED AND IN LOWEST POSITION. CALL LIGHT WITHIN REACH. WILL ENDORSE TO AM SHIFT.
--- NOTE | 2021-08-16 07:25 | NUR ---
RN NOTE PATIENT OBSERVE IN BED OBTUNDED, OPENS EYES AT TIMES. ON TRACHEOSTOMY WITH MECHANICAL VENTILATOR TOLERATING SETTINGS WELL O2 SAT OF 98%. NO S/S OF RESPIRATORY DISTRESS. ON TELE MONITOR SINUS RHYTHM AT THIS TIME. MERCHANT CATHETER PATENT AND INTACT NO HEMATURIA NOTED. HEAD OF BED ELEVATED. G-TUBE FEEDING HELD AT THIS TIME,400 CC RESIDUAL NOTED. JAVAN PICC LINE PATENT FLUSHING WELL. BED WHEELS LOCK, CALL LIGHT WITHIN REACH, SAFETY MEASURE OBSERVED, WILL CONTINUE TO MONITOR.
[2021-08-16 07:31] LABS: CALCIUM, SERUM 7.1 mg/dL (8.5-10.1); CREATININE 0.8 mg/dL (0.6-1.3); POTASSIUM 3.5 mmol/L (3.5-5.1)
[2021-08-16 07:45] LABS: BASOPHILS % (AUTO) 0.4 % (0.0-2.0); HEMATOCRIT 27 % (39-51); HEMOGLOBIN 9.3 g/dL (13.5-17.5); LYMPHOCYTES # (AUTO) 2.1 K/uL (0.8-4.8); LYMPHOCYTES % (AUTO) 19.7 % (20.0-44.0); MEAN CORPUSCULAR HGB CONC 34 g/dl (31.0-36.0); MEAN CORPUSCULAR VOLUME 91 fL (80-96); MONOCYTES # (AUTO) 0.5 K/uL (0.1-1.30); MONOCYTES % (AUTO) 4.9 % (2.0-12.0); NEUTROPHILS # (AUTO) 7.9 K/uL (1.8-8.9); PLATELET COUNT (AUTO) 188 K/uL (150-450); RED BLOOD CELL COUNT(AUTO) 2.98 MIL/uL (4.5-6.0); WHITE BLOOD COUNT (AUTO) 10.8 K/uL (4.3-11.0)
[2021-08-16 08:00] VITALS: BP 134/84
[2021-08-16] MEDS: DOCUSATE SODIUM LIQ 100 MG/10 ML UDC NG SCH (08:22)
[2021-08-16] MEDS: APIXABAN 5 MG TABLET PO SCH (08:23)
[2021-08-16] MEDS: Z GUARD REMEDY 2 OZ OINT TP SCH (08:24)
[2021-08-16] MEDS: MULTIVIT W/MINERALS 1 TAB TABLET PO SCH (08:24)
[2021-08-16] MEDS: ASCORBIC ACID 500 MG TABLET PO SCH (08:24)
[2021-08-16] MEDS: CLOTRIMAZOLE 1% 15 GM TUBE TP SCH (08:24)
[2021-08-16] MEDS: PROSOURCE / PROSTAT (PYXIS) 30 ML UDC PO SCH (08:24)
[2021-08-16] MEDS: METOCLOPRAMIDE HCL 10 MG TABLET GT SCH ×2 (08:24→12:40)
[2021-08-16 12:00] VITALS: BP 134/84
--- NOTE | 2021-08-16 13:19 | NUR ---
rapid and pcr obtained send to lab as ordered.
--- NOTE | 2021-08-16 13:19 | NUR ---
per JIMMY cm pt. needs pcr result first.
--- NOTE | 2021-08-16 14:02 | NUR ---
per dr. juan m weems to cancel PCR need rapid only , spoke with facility,cm aware.lab notified to cancel PCR.
--- NOTE | 2021-08-16 14:03 | NUR ---
AWAITS RAPID TEST.
--- NOTE | 2021-08-16 15:59 | NUR ---
RN NOTE PATIENT FOR DISCHARGE BODY CHECK DONE, PICTURES TAKEN.
[2021-08-16 16:00] VITALS: BP 121/77
--- NOTE | 2021-08-16 17:20 | NUR ---
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 PATIENT BREATHING EVEN AND UNLABORED NOT IN DISTRESS.
[2021-08-20] MEDS ORDERED: APIXABAN 5 MG TABLET PO SCH (09:00)
== END 2021-08-16 17:10 | DRG 5 ==
LOC: ER 17:18 → ICU 21:30 → TELE-TD 07-25 13:21 → ICU 07-28 19:45 → TELE-TD 08-14 11:14 → TELE1 08-15 08:40
PROVIDERS: ADMIT Nurse Practitioner Acute Care
PROC: 02HV33Z Insertion of Infusion Device into Superior Vena Cava, Percutaneous Approach (ICD-10-PCS; 2021-07-21)
PROC: B548ZZA Ultrasonography of Superior Vena Cava, Guidance (ICD-10-PCS; 2021-07-21)
PROC: 5A1955Z Respiratory Ventilation, Greater than 96 Consecutive Hours (ICD-10-PCS; principal; 2021-07-28)
PROC: 0BH17EZ Insertion of Endotracheal Airway into Trachea, Via Natural or Artificial Opening (ICD-10-PCS; 2021-07-28)
PROC: 0DH63UZ Insertion of Feeding Device into Stomach, Percutaneous Approach (ICD-10-PCS; 2021-07-28)
PROC: 06HY33Z Insertion of Infusion Device into Lower Vein, Percutaneous Approach (ICD-10-PCS; 2021-08-04)
PROC: 0B113F4 Bypass Trachea to Cutaneous with Tracheostomy Device, Percutaneous Approach (ICD-10-PCS; 2021-08-12)
PROC: 0BJ08ZZ Inspection of Tracheobronchial Tree, Via Natural or Artificial Opening Endoscopic (ICD-10-PCS; 2021-08-12)
DX: A41.2 Sepsis due to unspecified staphylococcus (principal); N17.0 Acute kidney failure with tubular necrosis; I26.99 Other pulmonary embolism without acute cor pulmonale; R65.21 Severe sepsis with septic shock; J69.0 Pneumonitis due to inhalation of food and vomit; G92.8 Other toxic encephalopathy; E43 Unspecified severe protein-calorie malnutrition; B49 Unspecified mycosis; J96.02 Acute respiratory failure with hypercapnia; J96.01 Acute respiratory failure with hypoxia; D68.59 Other primary thrombophilia; E83.39 Other disorders of phosphorus metabolism; L89.156 Pressure-induced deep tissue damage of sacral region; E87.2 Acidosis; E87.0 Hyperosmolality and hypernatremia; E86.0 Dehydration; N39.0 Urinary tract infection, site not specified; Z20.822 Contact with and (suspected) exposure to COVID-19; B96.89 Other specified bacterial agents as the cause of diseases classified elsewhere; Z74.09 Other reduced mobility; E86.1 Hypovolemia; R74.01 Elevation of levels of liver transaminase levels; X58.XXXA Exposure to other specified factors, initial encounter; Y92.9 Unspecified place or not applicable; S81.802A Unspecified open wound, left lower leg, initial encounter; F03.90 Unspecified dementia, unspecified severity, without behavioral disturbance, psychotic disturbance, mood disturbance, and anxiety; R62.7 Adult failure to thrive; R13.10 Dysphagia, unspecified; Z59.00 Homelessness unspecified; Z79.01 Long term (current) use of anticoagulants; Y95 Nosocomial condition; Z86.718 Personal history of other venous thrombosis and embolism; Z91.19 Patient's noncompliance with other medical treatment and regimen; Z86.711 Personal history of pulmonary embolism; Z79.4 Long term (current) use of insulin; Z91.14 Patient's other noncompliance with medication regimen; M20.42 Other hammer toe(s) (acquired), left foot; M20.41 Other hammer toe(s) (acquired), right foot; L84 Corns and callosities; N18.9 Chronic kidney disease, unspecified; K29.70 Gastritis, unspecified, without bleeding; J98.11 Atelectasis; N20.0 Calculus of kidney; N40.0 Benign prostatic hyperplasia without lower urinary tract symptoms; I48.91 Unspecified atrial fibrillation; B95.2 Enterococcus as the cause of diseases classified elsewhere; M62.562 Muscle wasting and atrophy, not elsewhere classified, left lower leg; M62.561 Muscle wasting and atrophy, not elsewhere classified, right lower leg; R59.0 Localized enlarged lymph nodes; D64.9 Anemia, unspecified; D69.6 Thrombocytopenia, unspecified; E87.6 Hypokalemia; F09 Unspecified mental disorder due to known physiological condition; F25.9 Schizoaffective disorder, unspecified; K80.20 Calculus of gallbladder without cholecystitis without obstruction; I48.92 Unspecified atrial flutter; K59.00 Constipation, unspecified
CPT/HCPCS: 31720; 36415; 36569; 36600; 43246; 71045-TC; 74018; 76770-TC; 80048-TC; 80053-TC; 80076-TC; 80202-TC; 81001; 82140-TC; 82533; 82570-TC; 82803-TC; 82962-TC; 83605-TC; 83735-TC; 83880; 84100-TC; 84155-TC; 84300-TC; 84439-TC; 84443-TC; 84478-TC; 84484-TC; 85025-TC; 85610-TC; 85730-TC; 86704; 86705; 86706; 86803; 87040-TC; 87070-TC; 87081-TC; 87086-TC; 87186-TC; 87340; 90935-TC; 92526; 92611-TC; 93307-TC; 93880-TC; 93970-TC; 93971-TC; 94002-TC; 94003-TC; 94668-TC; 94760-TC; 94762-TC; 94799-TC; A6253; A6403; A7526; A9563; C1750; G0378; J1650; J1720; J1815; J2060; J2185; J2270; J2370; J2543; J2704; J2765; J3370; J3480; J3490; J7030; J7040; J7050; J7060; J7070; J8597; Q9967; U0003